=== PATIENT | male | born 1945 | race Caucasian/White ===

== ENCOUNTER 2017-03-27 12:56 | Inpatient (IN) | payer OTHER ==
[~2017-03-27] VITALS: Ht 188 cm; Wt 124.7 kg
[~2017-03-27 12:56] MED LIST: ASPIRIN81 M4 PO; ATORVASTATIN CA10 M1 PO; ATORVASTATIN CA80 M1 PO; FINASTERIDE5 M1 PO; LOSARTAN POTAS100 M1 PO; METFORMIN HCL850 M1 PO; NAPROXEN SODIU550 M1 PO; OSTERA TABLET1 EACH PO; OXYCODONE-ACET1 EACH PO; PIOGLITAZONE HC15 MG PO; TAMSULOSIN HCL0.4 M1 PO; VICTOZA 3-0.6 MG/0.1 SC
[2017-03-27 14:18] LABS: ABSOLUTE BASOPHIL COUNT 0 /CUMM (0.0-0.2); ABSOLUTE EOSINOPHIL COUNT 0.1 /CUMM (0.0-0.7); ABSOLUTE GRANULOCYTE CT 8.9 /CUMM (1.4-6.5); ABSOLUTE LYMPH COUNT 0.6 /CUMM (1.2-3.4); BASOPHIL % 0.4 % (0.0-2.0); EOSINOPHIL % 0.6 % (0-5); HEMATOCRIT 33.5 % (42-52); MEAN CORPUSCULAR HGB 29.8 PG (27.0-31.0); MEAN CORPUSCULAR VOLUME 87.7 FL (80.0-94.0); MEAN PLATELET VOLUME 8.1 FL (7.4-10.4); RBC DISTRIBUTION WIDTH 14.1 % (11.5-14.5); RED BLOOD CELL CT 3.83 /CUMM (4.70-6.10); WHITE BLOOD CELL COUNT 10.6 /CUMM (4.8-10.8)
[2017-03-27 14:38] LABS: GRANULOCYTE % 83.9 % (42.2-75.2); PLATELET COUNT 253 /CUMM (130-400)
--- NOTE | 2017-03-27 17:55 | CT SCAN REPORT ---
EXAMINATION: CT HEAD WITHOUT CONTRAST CLINICAL INFORMATION: Weakness. Headache. COMPARISON: CT head 05/29/2015. TECHNIQUE: Contiguous axial imaging was performed from the skull base to vertex without intravenous administration of contrast. DLP: 627.21 mGy-cm FINDINGS: There is no evidence of acute intracranial hemorrhage or territorial infarction. No abnormal mass effect or midline shift is seen. Griffin to white matter differentiation is well preserved. No extra-axial fluid collections are identified. There is atrophy with prominence of the ventricles and the sulci and hypodensity of the periventricular white matter due to chronic small vessel ischemic disease. There is vascular calcifications of the internal carotid arteries bilaterally. The osseous structures and soft tissues are normal. Lobular mucosal thickening in the ethmoid, maxillary, sphenoid sinus. The right mastoid air cells are opacified. The middle ear cavities are normally aerated. IMPRESSION: No acute intracranial pathology.
--- NOTE | 2017-03-27 18:02 | RADIOLOGY REPORT ---
EXAMINATION: XR CHEST CLINICAL INFORMATION: Weakness. Presyncope. COMPARISON: Chest x-ray 03/22/2011 TECHNIQUE: 2 views of the chest were obtained. FINDINGS: Lungs are clear. No pulmonary vascular congestion. There is no pleural effusion. The heart size is normal. The cardiac and mediastinal contours are normal. There are multilevel degenerative changes of dorsal spine. There is orthopedic plate and screw at lower cervical spine partially imaged. IMPRESSION: No acute abnormality of the chest.
--- NOTE | 2017-03-27 19:34 | ED GENERAL ADULT ---
History of Present Illness General Chief Complaint: Male Genitourinary Problems Stated Complaint: URINE VERY DARK Source: patient, family () Exam Limitations: no limitations Vital Signs & Intake/Output Vital Signs & Intake/Output Vital Signs Date Time Temp Pulse Resp B/P B/P Pulse O2 O2 Flow FiO2 Mean Ox Delivery Rate 03/279 99.3 60 18 122/64 94 Room Air 03/27 2146 100.9 03/275 100.9 95 18 105/55 96 Room Air 03/27 1958 98.3 75 20 148/72 97 Room Air 03/27 1909 96 Room Air 03/27 1350 98.0 98 17 106/63 99 Room Air Allergies Coded Allergies: NO KNOWN ALLERGIES (07/28/10) Reconcile Medications 0.9 % Sodium Chloride (Safe Wash) 0.9 % SOLUTION 0.4 MG PO DAILY PROSTRATE ( Reported) Aspirin (Aspirin*) 81 MG TAB.CHEW 1 TAB PO DAILY ANTI-PLATELET Atorvastatin Calcium 80 MG TABLET 1 TAB PO 1700 HIGH CHOLESTEROL Finasteride 5 MG TABLET 1 TAB PO DAILY PROSTRATE (Reported) Glipizide (Glipizide ER) 2.5 MG TAB.ER.24 2.5 MG PO DAILY DM (Reported) Liraglutide (Victoza 3-Dimitris) 0.6 MG/0.1 ML PEN.INJCTR 1.8 MCG SC DAILY DIABETES (Reported) Losartan Potassium 100 MG TABLET 0.5 TAB PO DAILY KIDNEY (Reported) Metformin HCl 850 MG TABLET 1 TAB PO BID DIABETES (Reported) Naproxen Sodium 550 MG TABLET 1 TAB PO BID PAIN (Reported) PT TAKES 440MG BID Oxycodone HCl/Acetaminophen (Oxycodone-Acetaminophen 5-325) 1 EACH TABLET 1 TAB PO TIDPRN PAIN (Reported) Pioglitazone HCl 15 MG TABLET 1 TAB PO DAILY DIABETES (Reported) Tamsulosin HCl 0.4 MG CAP.ER.24H 1 CAP PO DAILY PROSTRATE (Reported) DAILY AT BEDTIME Tamsulosin HCl (Flomax) 0.4 MG CAP.ER.24H 0.4 MG PO BID PROSTRATE (Reported) Tramadol HCl 50 MG TABLET 25 MG PO BID PAIN. (Reported) Tramadol HCl 50 MG TABLET 50 MG PO DAILY PAIN (Reported) Vit D3 & K/Berberine HCl/Hops (Ostera Tablet) 1 EACH TABLET 1 TAB PO BID BONE HEALTH (Reported) Vit D3 & K/Berberine HCl/Hops (Ostera Tablet) 500 UNIT-500 MCG-90 MG-370 MG TABLET (Unknown Dose) PO BID BONE HEALTH (Reported) Triage Note: PT TO ED WITH ONE WEEK OF BODY ACHES, N/V, NASAL CONGESTION. NOTED URINE DARK, FEELS DEHYDRATED. CALLED PCP AND TOLD TO COME TO ED. Triage Nurses Notes Reviewed? yes Onset: Abrupt Duration: week(s): (1), changing over time, continues in ED Timing: single episode today Injury Environment: home Severity: mild, moderate Severity Numbers: 6 No Modifying Factors: none HPI: 71-year-old male past medical history of hypertension, diabetes, chronic back pain presents for evaluation of nausea, fevers, body aches, vomiting, dark urine and abdominal pain. Patient states that he's been having flulike symptoms for the past week. He is been feeling dehydrated dizzy. He states that last week when he was walking HE felt very dizzy like he may pass out. Her chest pain or shortness of breath. He does report some right upper quadrant abdominal pain that has been intermittent. He states he has been eating and drinking water today but has not been doing so the past several days. He also reports intermittent fevers. No recent surgeries diarrhea hemoptysis lower extremity edema or any other associated symptoms. (Harish Park) Past History Travel History Traveled to [place] past 21 day No Medical History Any Pertinent Medical History? see below for history Neurological: NONE EENT: NONE Cardiovascular: hypertension, hyperlipidemia Respiratory: NONE Gastrointestinal: NONE Hepatic: NONE Renal: benign prost hyperplasia Musculoskeletal: spinal stenosis Psychiatric: NONE Endocrine: diabetes Blood Disorders: NONE, IVC Cancer(s): NONE History of MRSA: No History of VRE: No History of CDIFF: No Pneumonia Vaccine: 07/30/10 Surgical History Surgical History: laminectomy, spinal fusion Psychosocial History Who do you live with Spouse Services at Home None What is your primary language French Tobacco Use: Quit >30 days ago Daily Tobacco Use Amount/Type: =< 4 Cigarettes daily ETOH Use: occasional use Illicit Drug Use: denies illicit drug use Family History Hx Contributory? No (Harish Park) Review of Systems Review of Systems Constitutional: Reports: fever, malaise, weakness. EENTM: Reports: nasal congestion. Respiratory: Reports: no symptoms. Cardiovascular: Reports: no symptoms. GI: Reports: see HPI, abdominal pain, nausea, vomiting. Genitourinary: Reports: no symptoms. Musculoskeletal: Reports: muscle pain, muscle stiffness. Skin: Reports: no symptoms. Neurological/Psychological: Reports: no symptoms. Hematologic/Endocrine: Reports: no symptoms. Immunologic/Allergic: Reports: no symptoms. All Other Systems: Reviewed and Negative (Harish Park) Physical Exam Physical Exam General Appearance: well developed/nourished, no apparent distress, alert, awake Head: atraumatic, normal appearance Eyes: Bilateral: normal appearance, PERRL, EOMI. Ears, Nose, Throat: normal pharynx, normal ENT inspection, hearing grossly normal Neck: normal inspection, supple, full range of motion Respiratory: normal breath sounds, chest non-tender, no respiratory distress, lungs clear Cardiovascular: regular rate/rhythm, normal peripheral pulses Peripheral Pulses: 2+ radial (R), 2+ radial (L) Gastrointestinal: normal bowel sounds, soft, no organomegaly, tenderness (RUQ) Back: normal inspection, normal range of motion, no vertebral tenderness, NO cva TENDERNESS Extremities: normal inspection, normal range of motion, no edema Neurologic/Psych: no motor/sensory deficits, awake, alert, oriented x 3 Skin: intact, normal color, warm/dry Lymphatic: no anterior cervical lopez Core Measures ACS in differential dx? No CVA/TIA Diagnosis: No Sepsis Present: Yes Sepsis Focused Exam Completed? Yes (Harish Park) Progress Differential Diagnoses I considered the following diagnoses in my evaluation of the patient: [Influenza , dehydration, electrolyte abnormality, pancreatitis, cholecystitis, hepatitis, acute coronary syndrome, pneumonia] Plan of Care: Orders Procedure Date/time Status Nothing by Mouth 03/28 B Active LACTIC ACID 03/28 1000 Active HEPATIC FUNCTION PANEL 03/28 0600 Active CBC WITHOUT DIFFERENTIAL 03/28 0600 Active BASIC ELECTROLYTES PLUS BUN&CR 03/28 0600 Active LACTIC ACID 03/28 0400 Active LACTIC ACID 03/28 0140 Active TRC EVALUATION (GEN) 03/27 2254 Active Pathway - chart 03/27 2254 Active LACTIC ACID 03/27 2240 Complete Patient Data 03/27 2151 Active Code Status 03/27 215 Active BLOOD CULTURE 03/27 2141 Active Add-on Test (ER Only) 03/27 2019 Active Add-on Test (ER Only) 03/27 2019 Active EKG 03/27 1853 Active Intake & Output 03/27 1836 Active Add-on Test (ER Only) 03/27 1749 Active MISTAKE 03/27 1716 Active EKG 03/27 1716 Active Add-on Test (ER Only) 03/27 1655 Active LIPASE 03/27 1402 Active LACTIC ACID 03/27 1402 Active HEPATITIS PANEL 03/27 1402 Active CREATINE PHOSPHOKINASE 03/27 1402 Active RAPID VIRAL INFLUENZA A 03/27 1356 Complete CULTURE,URINE 03/27 1304 Active URINALYSIS 03/27 1304 Complete COMPREHENSIVE METABOLIC PANEL 03/27 1304 Active CBC WITHOUT DIFFERENTIAL 03/27 1304 Complete CONTIN. POSITIVE AIRWAY PRESS 03/[address] in observation 03/27 UNK Active VTE Mechanical Prophylaxis 03/27 UNK Active Vital Signs 03/27 UNK Active Intake & Output 03/27 UNK Active Activity/Ambulation 03/27 UNK Active Current Medications Sig/Andrea Start time Last Medication Dose Stop Time Status Admin Heparin Sodium 5,000 UNIT Q8 03/28 0600 UNVr (Porcine) Ampicillin Sodium/ 3,000 MG Q6 03/27 2359 UNVr Sulbactam Sodium (Unasyn) Sodium Chloride 100 ML (Normal Saline 0.9%) Acetaminophen 650 MG Q6PRN PRN 03/27 2300 UNVr (Tylenol) Dextrose/Sodium 1,000 ML .Q8H 03/27 2300 UNVr Chloride (D5-Normal Saline) Morphine Sulfate 2 MG Q2P PRN 03/27 2300 UNVr (Morphine) Ondansetron HCl 4 MG Q6-PRN PRN 03/27 2300 UNVr (Zofran) Laboratory Tests 03/27/17 2300: Lactic Acid 0.8 03/27/17 1628: Urinalysis LIGHT H, Urine Color YEL, Urine Clarity HAZY H, Urine pH 6.0, Ur Specific [place] 1.025, Urine Protein 30 H, Urine Ketones TRACE H, Urine Nitrite NEG, Urine Bilirubin NEG, Urine Urobilinogen 1.0, Ur Leukocyte Esterase NEG, Ur Microscopic SEDIMENT EXAMINED, Urine RBC 3-5, Urine WBC 3-5 H, Ur Epithelial Cells FEW, Hyaline Casts RARE H, Granular Casts MANY H, Urine Hemoglobin SMALL H, Urine Glucose 100 H 03/27/17 1402: Anion Gap 14, Estimated GFR 43 L, BUN/Creatinine Ratio 25.0, Glucose 320 H, Lactic Acid 3.4 H, Calcium 9.4, Total Bilirubin 0.7, AST 199 H, ALT 281 H, Alkaline Phosphatase 219 H, Creatine Kinase 302 H, Total Protein 6.7, Albumin 3.4 L, Globulin 3.3, Albumin/Globulin Ratio 1.0 L, Lipase 208, CBC w Diff NO MAN DIFF REQ, RBC 3.83 L, MCV 87.7, MCH 29.8, MCHC 34.0, RDW 14.1, MPV 8.1, Gran % 83.9 H, Lymphocytes % 6.1 L, Monocytes % 9.0, Eosinophils % 0.6, Basophils % 0.4, Absolute Granulocytes 8.9 H, Absolute Lymphocytes 0.6 L, Absolute Monocytes 1.0 H, Absolute Eosinophils 0.1, Absolute Basophils 0, Hepatitis A IgM Ab Pending, Hep Bs Antigen Pending, Hep B Core IgM Ab Conf Pending, Hepatitis C Antibody Pending Microbiology 03/27 2200 BLOOD: Blood Culture - RECD 03/27 2145 BLOOD: Blood Culture - RECD 03/27 1628 URINE ROUT: Urine Culture - RECD 03/27 1400 NASOPHARYN: Influenza Virus A & B Rapid Smear - COMP Patient seen and evaluated. He reports flulike symptoms over the past week including dizziness decreased oral intake. He has been drinking water today but still feels like his urine is dark. He had a presyncopal episode and his is worried he may have had a seizure or stroke. He has right upper quadrant tenderness as well as elevated LFTs. No white count. An ultrasound of the right upper quadrant was ordered to assess the gallbladder and liver. Shows evidence of possibly gangrenous cholecystitis. Lactic acid was added on at 8 PM and was found to be elevated. 2 L of normal saline was ordered and a repeat was put in for 11 PM. Patient spiked a temp around 9:30. IV Tylenol and Unasyn ordered blood cultures obtained. SPoke with Dr. Argueta from general surgery. Patient will be admitted for further evaluation and treatment. He will require serial labs, IV fluids, IV antibiotics, IV pain meds, surgical consult, laparoscopic cholecystectomy serial abdominal exams. Case discussed with Dr. Fitch he agrees. Diagnostic Imaging: Viewed by Me: Radiology Read, CT Scan, Ultrasound. Discussed w/RAD: Radiology Read, CT Scan, Ultrasound. Radiology Impression: PATIENT: KELLY HYDE PRESENT AGE: 71 PATIENT ACCOUNT NO: [id number] : 47 LOCATION: [facility] ORDERING PHYSICIAN: Harish BORDEN SERVICE DATE: 03/27/17 EXAM TYPE: US - US-LIMITED ABDOMEN EXAMINATION: US ABDOMEN LIMITED CLINICAL INFORMATION: Right upper quadrant pain, nausea and vomiting, and fever in a 71-year-old male patient. COMPARISON: None recent. TECHNIQUE: Real-time imaging of the right upper quadrant abdominal viscera. Exam is limited by the patient's body habitus. FINDINGS: PANCREAS: Partially visualized and normal. LIVER: Normal. The liver demonstrates normal size, contour and echogenicity. No focal lesion or intrahepatic biliary duct dilatation. GALLBLADDER: No significant findings involve the gallbladder which is abnormally dilated and filled with echogenic bile. Numerous small stones are seen near the gallbladder neck. The gallbladder wall is abnormally thickened and edematous. There is suggestion of mucosal sloughing near the proximal body of the gallbladder. Image 39/47. This would be compatible with gangrenous cholecystitis. COMMON BILE DUCT: Normal in caliber measuring 0.4 cm in diameter. RIGHT KIDNEY: Normal. No hydronephrosis. No renal calculi or focal parenchymal lesions. The kidney measures 12.6 cm in maximum dimension. FREE FLUID: None. IMPRESSION: Cholelithiasis, hydrops, stasis, and findings consistent with gangrenous cholecystitis. Incidentally, the silversmith apprentice noted that the patient was not tender over the area of the gallbladder (which is consistent with this impression). DICTATED BY: Yobani Dale MD DATE/TIME DICTATED:03/27/171999 PLANT MAINTENANCE ENGINEER:RORY DATE/TIME TRANSCRIBED:1999 CONFIDENTIAL, DO NOT COPY WITHOUT APPROPRIATE AUTHORIZATION., PATIENT: KELLY HYDE PRESENT AGE: 71 PATIENT ACCOUNT NO: [id number] : 47 LOCATION: [facility] ORDERING PHYSICIAN: Harish BORDEN SERVICE DATE: 03/27/17 EXAM TYPE: CAT - CT HEAD WO IV CONTRAST EXAMINATION: CT HEAD WITHOUT CONTRAST CLINICAL INFORMATION: Weakness. Headache. COMPARISON: CT head 05/29/2015. TECHNIQUE: Contiguous axial imaging was performed from the skull base to vertex without intravenous administration of contrast. DLP: 627.21 mGy-cm FINDINGS: There is no evidence of acute intracranial hemorrhage or territorial infarction. No abnormal mass effect or midline shift is seen. Griffin to white matter differentiation is well preserved. No extra-axial fluid collections are identified. There is atrophy with prominence of the ventricles and the sulci and hypodensity of the periventricular white matter due to chronic small vessel ischemic disease. There is vascular calcifications of the internal carotid arteries bilaterally. The osseous structures and soft tissues are normal. Lobular mucosal thickening in the ethmoid, maxillary, sphenoid sinus. The right mastoid air cells are opacified. The middle ear cavities are normally aerated. IMPRESSION: No acute intracranial pathology. DICTATED BY: Stanley Morales MD DATE/TIME DICTATED:03/27/171748 PLANT MAINTENANCE ENGINEER:RORY DATE/TIME TRANSCRIBED:03/27/171748 CONFIDENTIAL, DO NOT COPY WITHOUT APPROPRIATE AUTHORIZATION. CXR Impression: PATIENT: KELLY HYDE PRESENT AGE : 71 PATIENT ACCOUNT NO: [id number] : 47 LOCATION: [facility] ORDERING PHYSICIAN: Harish BORDEN SERVICE DATE: 03/27/17 EXAM TYPE: RAD - XRY- CHEST XRAY, TWO VIEWS EXAMINATION: XR CHEST CLINICAL INFORMATION: Weakness. Presyncope. COMPARISON: Chest x-ray 03/22/2011 TECHNIQUE: 2 views of the chest were obtained. FINDINGS: Lungs are clear. No pulmonary vascular congestion. There is no pleural effusion. The heart size is normal. The cardiac and mediastinal contours are normal. There are multilevel degenerative changes of dorsal spine. There is orthopedic plate and screw at lower cervical spine partially imaged. IMPRESSION: No acute abnormality of the chest. DICTATED BY: Stanley Morales MD DATE/TIME DICTATED:03/27/171757 PLANT MAINTENANCE ENGINEER:RORY DATE/TIME TRANSCRIBED:03/27/171757 CONFIDENTIAL, DO NOT COPY WITHOUT APPROPRIATE AUTHORIZATION. <Electronically signed in Other Vendor System> Initial ED EKG: normal sinus rhythm, ATRIAL PREMATURE COMPLEX (Harish Park) ED Sepsis Exam Date of Focused Sepsis Exam: 03/27/17 Time of Focused Sepsis Exam: 2100 Sepsis Cardiac Exam: Regular Rate/Rhythm Sepsis Resp Exam: CTA Sepsis Cap Refill Exam: <2 Sec Sepsis Peripheral Pulse Exam: Normal Sepsis Peripheral Pulse Location: Radial Sepsis Skin Color Exam: Pale Skin Temp/Moisture Exam: Warm/Dry (Harish Park) Departure Departure Disposition: STILL A PATIENT Condition: Stable Clinical Impression Primary Impression: Cholecystitis Referrals: Sveta ABREU,Orlando Espinoza (PCP/Family) Departure Forms: Customer Survey General Discharge Information Observation Note Spoke With: Kendall ABREU,Kevin Nevarez Patient In: Non-ED OBS Care Area Rationale for Observation: My rational for observation is as follows [IV fluids, IV antibiotics, serial labs, surgical consult, monitoring of vital signs, serial abdominal exams]. (Harish Park) PA/DIRECTOR MANUFACTURING ENGINEERING Co-Sign Statement Statement: ED Attending supervision documentation- [x] I saw and evaluated the patient. I have also reviewed all the pertinent lab results and diagnostic results. I agree with the findings and the plan of care as documented in the PA's/DIRECTOR MANUFACTURING ENGINEERING's documentation. 03/27/17, 21:15... pt with ruq tenderness, infected gall bladder on ct scan... merits iv abx, admission for likley cholecystectomy. [] I have reviewed the ED Record and agree with the PA's/DIRECTOR MANUFACTURING ENGINEERING's documentation. [] Additions or exceptions (if any) to the PAs/DIRECTOR MANUFACTURING ENGINEERING's note and plan are summarized below: [] (Little ABREU,[place]) Critical Care Note Critical Care Note Critical Care Time: non-applicable (Harish Park) Critical Care Time: non-applicable (Harish Park)
--- NOTE | 2017-03-27 20:13 | ULTRASOUND REPORT ---
EXAMINATION: US ABDOMEN LIMITED CLINICAL INFORMATION: Right upper quadrant pain, nausea and vomiting, and fever in a 71-year-old male patient. COMPARISON: None recent. TECHNIQUE: Real-time imaging of the right upper quadrant abdominal viscera. Exam is limited by the patient's body habitus. FINDINGS: PANCREAS: Partially visualized and normal. LIVER: Normal. The liver demonstrates normal size, contour and echogenicity. No focal lesion or intrahepatic biliary duct dilatation. GALLBLADDER: No significant findings involve the gallbladder which is abnormally dilated and filled with echogenic bile. Numerous small stones are seen near the gallbladder neck. The gallbladder wall is abnormally thickened and edematous. There is suggestion of mucosal sloughing near the proximal body of the gallbladder. Image 39/47. This would be compatible with gangrenous cholecystitis. COMMON BILE DUCT: Normal in caliber measuring 0.4 cm in diameter. RIGHT KIDNEY: Normal. No hydronephrosis. No renal calculi or focal parenchymal lesions. The kidney measures 12.6 cm in maximum dimension. FREE FLUID: None. IMPRESSION: Cholelithiasis, hydrops, stasis, and findings consistent with gangrenous cholecystitis. Incidentally, the fountain attendant noted that the patient was not tender over the area of the gallbladder (which is consistent with this impression).
[2017-03-27] MEDS ORDERED: OSTERA TABLET1 EACH PO (21:00)
[2017-03-27] MEDS ORDERED: FLOMAX0.4 M1 PO (21:00)
[2017-03-27] MEDS ORDERED: TRAMADOL HCL50 M1 PO ×2 (21:00→21:53)
[2017-03-27] MEDS ORDERED: GLIPIZIDE ER2.5 M1 PO (21:51)
[2017-03-27] MEDS ORDERED: SAFE WASH210 ML PO (21:52)
--- NOTE | 2017-03-27 22:45 | Cons- Medical ---
Enrique Mckeon 03/27/17 2245: General Information and HPI Consulting Request Date of Consult: 03/27/17 Requested By: Kendall ABREU,Kevin Gates Reason for Consult: pre-op medical assessment and clearance Source of Information: patient, old records Exam Limitations: no limitations History of Present Illness: Patient is a 71 year old male with medical history of , TIA 2016, DM type 2, cervical myelopathy, hypertension, hyperlipidemia, obstructive sleep apnea on CPAP, chronic kidney disease stage II, spinal stenosis status post multiple back surgeries, DVT with IVC filter 2011, former smoker quit 7 years ago. Patient presented to the emergency department after being advised by his primary care doctor to come for further evaluation due to a chief complaint of dark urine. Patient stated that around 1 week ago sudden right upper quadrant abdominal pain started that was intense, radiating to his back, around 8 out of 10 associated with nausea and vomiting happened x 4 and after that 2-3 days his abdominal pain started to subside and his appetite and oral intake improved on last Monday. But the dark urine still persist and it due to that he contact his primary care doctor who advised him to come to the emergency department for further evaluation. In the ED patient spike a fever 100.9, abdominal ultrasound showed gangrenous cholecystitis, patient admitted under surgical service to be taken to the OR tomorrow. Patient started on IV Unasyn, blood and urine culture obtained. Patient currently denies any fever, chills, sweating, nausea, vomiting, diarrhea , hematuria, dysuria, headaches, change in vision or hearing, constipation, chest pain, heart racing, orthopnea, lower extremity swelling, shortness of breath, cough, wheezing. The patient use walker to walk due to his back issues. Patient stated that he had nuclear stress test that was done 3-4 years ago with his cupola worker Geovanny Levy MD and according to him it was within normal. Last time patient was in the hospital was 2016 that was due to TIA, latest echocardiogram done in 2016 with EF > 55%. Patient former smoker smoked for 40 years 2 pack per day quit 7 years ago patient states he is compliant with his CPAP machine at home. Allergies/Medications Allergies: Coded Allergies: NO KNOWN ALLERGIES (07/28/10) Home Med List: 0.9 % Sodium Chloride (Safe Wash) 0.9 % SOLUTION 0.4 MG PO DAILY PROSTRATE ( Reported) Aspirin (Aspirin*) 81 MG TAB.CHEW 1 TAB PO DAILY ANTI-PLATELET Atorvastatin Calcium 80 MG TABLET 1 TAB PO 1700 HIGH CHOLESTEROL Finasteride 5 MG TABLET 1 TAB PO DAILY PROSTRATE (Reported) Glipizide (Glipizide ER) 2.5 MG TAB.ER.24 2.5 MG PO DAILY DM (Reported) Liraglutide (Victoza 3-Dimitris) 0.6 MG/0.1 ML PEN.INJCTR 1.8 MCG SC DAILY DIABETES (Reported) Losartan Potassium 100 MG TABLET 0.5 TAB PO DAILY KIDNEY (Reported) Metformin HCl 850 MG TABLET 1 TAB PO BID DIABETES (Reported) Naproxen Sodium 550 MG TABLET 1 TAB PO BID PAIN (Reported) PT TAKES 440MG BID Oxycodone HCl/Acetaminophen (Oxycodone-Acetaminophen 5-325) 1 EACH TABLET 1 TAB PO TIDPRN PAIN (Reported) Pioglitazone HCl 15 MG TABLET 1 TAB PO DAILY DIABETES (Reported) Tamsulosin HCl 0.4 MG CAP.ER.24H 1 CAP PO DAILY PROSTRATE (Reported) DAILY AT BEDTIME Tamsulosin HCl (Flomax) 0.4 MG CAP.ER.24H 0.4 MG PO BID PROSTRATE (Reported) Tramadol HCl 50 MG TABLET 25 MG PO BID PAIN. (Reported) Tramadol HCl 50 MG TABLET 50 MG PO DAILY PAIN (Reported) Vit D3 & K/Berberine HCl/Hops (Ostera Tablet) 1 EACH TABLET 1 TAB PO BID BONE HEALTH (Reported) Vit D3 & K/Berberine HCl/Hops (Ostera Tablet) 500 UNIT-500 MCG-90 MG-370 MG TABLET (Unknown Dose) PO BID BONE HEALTH (Reported) Current Medications: Current Medications Sig/Andrea Start time Last Medication Dose Route Stop Time Status Admin Acetaminophen 650 MG Q6PRN PRN 03/27 2300 AC PO Acetaminophen 0 .STK-MED ONE 03/27 2146 DC IV Acetaminophen 1,000 MG ONCE ONE 03/27 2144 DC 03/27 N/A 1 UNIT IV 03/27 Ampicillin Sodium/ 3,000 MG Q6 03/279 AC Sulbactam Sodium IV Sodium Chloride 100 ML Ampicillin Sodium/ 0 .STK-MED ONE 03/27 2201 DC Sulbactam Sodium .ROUTE Ampicillin Sodium/ 3,000 MG ONCE ONE 03/27 2144 DC 03/27 Sulbactam Sodium IV 03/27 221 2211 Sodium Chloride 100 ML Dextrose/Sodium 1,000 ML .Q8H 03/27 2300 AC 03/28 Chloride IV 0013 Finasteride 5 MG DAILY 03/28 1000 AC PO Heparin Sodium 5,000 UNIT Q8 03/28 0600 AC (Porcine) SC Insulin Human Regular 0 Q6 03/28 0016 AC 03/28 SC 0057 Morphine Sulfate 2 MG Q2P PRN 03/27 2300 AC IV Ondansetron HCl 4 MG Q6-PRN PRN 03/27 2300 AC IV Sodium Chloride 1,000 ML BOLUS ONE 03/27 2114 DC 03/27 IV 03/27 2213 221 Sodium Chloride 1,000 ML BOLUS ONE 03/27 2029 DC 03/27 IV 03/27 Tamsulosin HCl 0.4 MG BID 03/28 1000 AC PO Review of Systems Review of Systems Constitutional: Denies: see HPI. Cardiovascular: Denies: see HPI. Respiratory: Denies: see HPI. GI: Reports: see HPI. Genitourinary: Reports: see HPI. Musculoskeletal: Reports: see HPI. Past History Travel History Traveled to [place] past 21 day No Medical History Neurological: NONE EENT: NONE Cardiovascular: hypertension, hyperlipidemia Respiratory: NONE Gastrointestinal: NONE Hepatic: NONE Renal: benign prost hyperplasia Musculoskeletal: spinal stenosis Psychiatric: NONE Endocrine: diabetes Blood Disorders: NONE, IVC Cancer(s): NONE Surgical History Surgical History: laminectomy, spinal fusion Psychosocial History Services at Home: None Smoking Status: Former Smoker ETOH Use: occasional use Illicit Drug Use: denies illicit drug use Functional Ability ADLs Independent: dressing, eating, toileting, bathing. Ambulation: walker Exam & Diagnostic Data Last 24 Hrs of Vital Signs/I&O Vital Signs Date Time Temp Pulse Resp B/P B/P Pulse O2 O2 Flow FiO2 Mean Ox Delivery Rate 03/28 0101 69 96 03/28 001 98.3 91 24 128/76 96 Room Air 03/27 2308 99.3 60 18 122/64 94 Room Air 03/27 2146 100.9 03/27 2134 100.9 95 18 105/55 96 Room Air 03/27 1958 98.3 75 20 148/72 97 Room Air 03/27 1909 96 Room Air 03/27 1350 98.0 98 17 106/63 99 Room Air Intake & Output 03/28 0800 03/28 0000 03/27 1600 Intake Total Output Total 125 100 Balance -125 -100 Output, Urine 125 100 Patient 275 lb 275 lb Weight Weight Reported by Patient Reported by Patient Measurement Method Physical Exam General Appearance: alert, comfortable, obese Head: atraumatic Eyes: Bilateral: PERRL, EOMI. Neck: normal inspection Respiratory: normal breath sounds, chest non-tender, lungs clear Cardiovascular: regular rate/rhythm, normal peripheral pulses Gastrointestinal: normal bowel sounds, soft, right upper quadrant tenderness with deep palpation. negative Penny sign, obese Extremities: normal inspection, no edema Neurologic/Psych: awake, alert, oriented x 3, package lift operator II-XII nml as tested, 3-4 out of 5 lower extremity strength Last 24 Hrs of Labs/Jesus: Laboratory Tests 03/27/17 2300: Lactic Acid 0.8 03/27/17 1628: Urinalysis LIGHT H, Urine Color YEL, Urine Clarity HAZY H, Urine pH 6.0, Ur Specific [place] 1.025, Urine Protein 30 H, Urine Ketones TRACE H, Urine Nitrite NEG, Urine Bilirubin NEG, Urine Urobilinogen 1.0, Ur Leukocyte Esterase NEG, Ur Microscopic SEDIMENT EXAMINED, Urine RBC 3-5, Urine WBC 3-5 H, Ur Epithelial Cells FEW, Hyaline Casts RARE H, Granular Casts MANY H, Urine Hemoglobin SMALL H, Urine Glucose 100 H 03/27/17 1402: Anion Gap 14, Estimated GFR 43 L, BUN/Creatinine Ratio 25.0, Glucose 320 H, Lactic Acid 3.4 H, Calcium 9.4, Total Bilirubin 0.7, AST 199 H, ALT 281 H, Alkaline Phosphatase 219 H, Creatine Kinase 302 H, Troponin I Pending, Total Protein 6.7, Albumin 3.4 L, Globulin 3.3, Albumin/Globulin Ratio 1.0 L, Lipase 208, CBC w Diff NO MAN DIFF REQ, RBC 3.83 L, MCV 87.7, MCH 29.8, MCHC 34.0, RDW 14.1, MPV 8.1, Gran % 83.9 H, Lymphocytes % 6.1 L, Monocytes % 9.0, Eosinophils % 0.6, Basophils % 0.4, Absolute Granulocytes 8.9 H, Absolute Lymphocytes 0.6 L, Absolute Monocytes 1.0 H, Absolute Eosinophils 0.1, Absolute Basophils 0, Hepatitis A IgM Ab Pending, Hep Bs Antigen Pending, Hep B Core IgM Ab Conf Pending, Hepatitis C Antibody Pending Microbiology 03/27 1400 NASOPHARYN: Influenza Virus A & B Rapid Smear - COMP Diagnostic Data CXR Results EXAMINATION: XR CHEST CLINICAL INFORMATION: Weakness. Presyncope. COMPARISON: Chest x-ray 03/22/2011 TECHNIQUE: 2 views of the chest were obtained. FINDINGS: Lungs are clear. No pulmonary vascular congestion. There is no pleural effusion. The heart size is normal. The cardiac and mediastinal contours are normal. There are multilevel degenerative changes of dorsal spine. There is orthopedic plate and screw at lower cervical spine partially imaged. IMPRESSION: No acute abnormality of the chest. Other Results EXAMINATION: US ABDOMEN LIMITED CLINICAL INFORMATION: Right upper quadrant pain, nausea and vomiting, and fever in a 71-year-old male patient. COMPARISON: None recent. TECHNIQUE: Real-time imaging of the right upper quadrant abdominal viscera. Exam is limited by the patient's body habitus. FINDINGS: PANCREAS: Partially visualized and normal. LIVER: Normal. The liver demonstrates normal size, contour and echogenicity. No focal lesion or intrahepatic biliary duct dilatation. GALLBLADDER: No significant findings involve the gallbladder which is abnormally dilated and filled with echogenic bile. Numerous small stones are seen near the gallbladder neck. The gallbladder wall is abnormally thickened and edematous. There is suggestion of mucosal sloughing near the proximal body of the gallbladder. Image 39/47. This would be compatible with gangrenous cholecystitis. COMMON BILE DUCT: Normal in caliber measuring 0.4 cm in diameter. RIGHT KIDNEY: Normal. No hydronephrosis. No renal calculi or focal parenchymal lesions. The kidney measures 12.6 cm in maximum dimension. FREE FLUID: None. IMPRESSION: Cholelithiasis, hydrops, stasis, and findings consistent with gangrenous cholecystitis. Incidentally, the brineyard supervisor noted that the patient was not tender over the area of the gallbladder (which is consistent with this impression). EXAMINATION: CT HEAD WITHOUT CONTRAST CLINICAL INFORMATION: Weakness. Headache. COMPARISON: CT head 05/29/2015. TECHNIQUE: Contiguous axial imaging was performed from the skull base to vertex without intravenous administration of contrast. DLP: 627.21 mGy-cm FINDINGS: There is no evidence of acute intracranial hemorrhage or territorial infarction. No abnormal mass effect or midline shift is seen. Griffin to white matter differentiation is well preserved. No extra-axial fluid collections are identified. There is atrophy with prominence of the ventricles and the sulci and hypodensity of the periventricular white matter due to chronic small vessel ischemic disease. There is vascular calcifications of the internal carotid arteries bilaterally. The osseous structures and soft tissues are normal. Lobular mucosal thickening in the ethmoid, maxillary, sphenoid sinus. The right mastoid air cells are opacified. The middle ear cavities are normally aerated. IMPRESSION: No acute intracranial pathology. Assessment/Plan Assessment/Plan Patient is a 71 year old male with medical history of , TIA 2016, DM type 2, cervical myelopathy, hypertension, hyperlipidemia, chronic kidney disease stage II, obstructive sleep apnea on CPAP, spinal stenosis status post multiple back surgeries, DVT with IVC filter 2011, former smoker quit 7 years ago. Patient presented to the emergency department after being advised by his primary care doctor to come for further evaluation due to a chief complaint of dark urine. Problem list: -Gangrenous cholecystitis -Transaminitis with elevated creatine kinase -Lactic acidosis -Hyperglycemia -Pseudohyponatremia-corrected sodium 140 -Anemia most likely anemia of chronic disease -RCRI= 2 class III Recommendation: -1 additional set of troponin and EKG in a.m. -Patient medically optimized for surgery but Patient will need cardiology clearance(patient follow with Geovanny Levy MD) -Hold off oral antidiabetic medication, continue current insulin sliding scale -Endocrinology consultation in a.m. -Hold off losartan, aspirin, atorvastatin and tramadol can be restarted after operation. -Continue current antibiotic, follow blood and urine culture -Follow hepatitis panel -CPAP at nighttime -DVT prophylaxis all time -We will continue following the patient. Consult Acknowledgment - Thank you for your consult request. Floyd ABREU, [facility] 03/28/17 0017: Assessment/Plan Consult Acknowledgment - Thank you for your consult request. Attending MD Review Statement Attending Statement Attending MD Statement: examined this patient, discuss w/resident/PA/ANALYSIS MANAGER, agreed w/resident/PA/ANALYSIS MANAGER, reviewed images, amended to note Attending Assessment/Plan: 71 yo morbidly obese M with h/o VINEET on CPAP, TIA, T2DM, CKD, cervical myelopathy s/p laminectomy, previous lumbar surgery with prophylactic IVC filter placement due to high risk for DVT/PE, is admitted to Surgical service for acute gangrenous cholecystitis with a plan for OR in AM. Patient reports symptoms of right upper quadrant pain, nausea, vomiting in the past 1 week but he came in to be evaluated for 'dark urine'. Patient denies chest pain, dyspnea, palpitations or lightheadedness. He follows Dr. Martino for cardiology and reports undergoing nuclear stress test few years ago that was essentially normal. Patient denies any h/o CAD or IHD, CHF and is not insulin dependent. Vitals: Tmax 100.9, HR 60-90's, BP 122/64, sats 96% RA. Exam as above. Labs: no leukocytosis, Na 136, BUN 40, creat 1.6 (Baseline 1.0-1.4), glucose 320, lactic acid 3.4 --> 0.8, T. Bili 0.7, AST 199, ALT 281, Alk phos 219, CK 302, trop 0.06 , lipase 208, albumin 3.4. UA hazy, proteinuria, trace ketones. CXR and CT head: no acute changes. Abd ultrasound: cholelithiasis, hydrops, stasis with gangrenous cholecystitis. Echo (2016): EF > 55%. EKG: sinus rhythm, PAC's. Assessment and plan: 1. Acute gangrenous cholecystitis 2. Lactic acidosis 3. Transaminitis 4. Type 2 diabetes (A1c 6.6 in Jan 2016) not on insulin 5. VINEET on CPAP 6. CKD with baseline creatinine < 2.0 - Based on RCRI, patient has 2 risk factors history of TIA and is undergoing an intraperitoneal surgery, with moderate risk of perioperative cardiac event. Will obtain Cardiology clearance. - NPO, IV hydration, IV antibiotics and pain management per Surgery. - Insulin NPO SS, check HbA1c, hold oral hypoglycemics - Endo consult Dr. Bangura in AM - Check EKG and troponin in AM - Hold losartan, aspirin and atorvastatin - Continue nocturnal CPAP DVT ppx Hep SC. Full code.
--- NOTE | 2017-03-27 23:05 | Admission Core Measures ---
Acute Coronary Syndrome (CM) ACS Core Measures Acute Coronary Syndrome Diagnosis No Congestive Heart Failure (NEW) CHF Core Measures Congestive Heart Failure Diagnosis No Cerebrovascular Accident (NEW) CVA Core Measures CVA/TIA Diagnosis No Venous Thromboembolism VTE Core Wanda (View Protocol) VTE Risk Factors Acute Medical Illness No Mechanical VTE Prophylaxis d/t N/A MechProphylax Ordered No VTE Pharm Prophylaxis d/t NA PharmProphylax ordered Problem List As ranked by this Provider includes Assessment & Plan 1. Cholecystitis HOME MEDS Home Med List 0.9 % Sodium Chloride (Safe Wash) 0.9 % SOLUTION 0.4 MG PO DAILY PROSTRATE ( Reported) Aspirin (Aspirin*) 81 MG TAB.CHEW 1 TAB PO DAILY ANTI-PLATELET Atorvastatin Calcium 80 MG TABLET 1 TAB PO 1700 HIGH CHOLESTEROL Finasteride 5 MG TABLET 1 TAB PO DAILY PROSTRATE (Reported) Glipizide (Glipizide ER) 2.5 MG TAB.ER.24 2.5 MG PO DAILY DM (Reported) Liraglutide (Victoza 3-Dimitris) 0.6 MG/0.1 ML PEN.INJCTR 1.8 MCG SC DAILY DIABETES (Reported) Losartan Potassium 100 MG TABLET 0.5 TAB PO DAILY KIDNEY (Reported) Metformin HCl 850 MG TABLET 1 TAB PO BID DIABETES (Reported) Naproxen Sodium 550 MG TABLET 1 TAB PO BID PAIN (Reported) Oxycodone HCl/Acetaminophen (Oxycodone-Acetaminophen 5-325) 1 EACH TABLET 1 TAB PO TIDPRN PAIN (Reported) Pioglitazone HCl 15 MG TABLET 1 TAB PO DAILY DIABETES (Reported) Tamsulosin HCl 0.4 MG CAP.ER.24H 1 CAP PO DAILY PROSTRATE (Reported) Tamsulosin HCl (Flomax) 0.4 MG CAP.ER.24H 0.4 MG PO BID PROSTRATE (Reported) Tramadol HCl 50 MG TABLET 25 MG PO BID PAIN. (Reported) Tramadol HCl 50 MG TABLET 50 MG PO DAILY PAIN (Reported) Vit D3 & K/Berberine HCl/Hops (Ostera Tablet) 1 EACH TABLET 1 TAB PO BID BONE HEALTH (Reported) Vit D3 & K/Berberine HCl/Hops (Ostera Tablet) 500 UNIT-500 MCG-90 MG-370 MG TABLET (Unknown Dose) PO BID BONE HEALTH (Reported)
--- NOTE | 2017-03-27 23:06 | History & Physical Pre-Op ---
Ava Noriega 03/27/17 3865: General Information and HPI History of Present Illness: 71yoM presented to ED this afternoon with CC of "darkened urine". He has not been feeling well over the last week, and believed he had the flu. He did contact Dr. Bangura, his waste disposal attendant, who instructed him to come to the emergency department today for further evaluation. 7 days ago, he began to have nausea vomiting and diarrhea accompanied with right upper quadrant pain and right flank pain. The pain has subsided and he is now pain-free. The pain lasted 2-3 days. Over the week, he continued to be nauseous and have diarrhea, as well as have subjective fever and chills at home. Denies sick contacts. Denies chest pain or shortness of breath. Denies history of abdominal surgeries or gastrointestinal diagnoses. He does have multiple medical problems, and is followed by Dr. Bangura who he calls his primary care doctor. He has diabetes2, obstructive sleep apnea with CPAP at night, BPH, hyperlipidemia, and chronic back pain status post 3 cervical procedures and 1 lumbar procedure. He had a DVT and PE postoperatively following spine surgery in 2011, and does have a IVC filter in place. He is status post TIA in 2016 Allergies/Medications Allergies: Coded Allergies: NO KNOWN ALLERGIES (07/28/10) Home Med list 0.9 % Sodium Chloride (Safe Wash) 0.9 % SOLUTION 0.4 MG PO DAILY PROSTRATE ( Reported) Aspirin (Aspirin*) 81 MG TAB.CHEW 1 TAB PO DAILY ANTI-PLATELET Atorvastatin Calcium 80 MG TABLET 1 TAB PO 1700 HIGH CHOLESTEROL Finasteride 5 MG TABLET 1 TAB PO DAILY PROSTRATE (Reported) Glipizide (Glipizide ER) 2.5 MG TAB.ER.24 2.5 MG PO DAILY DM (Reported) Liraglutide (Victoza 3-Dimitris) 0.6 MG/0.1 ML PEN.INJCTR 1.8 MCG SC DAILY DIABETES (Reported) Losartan Potassium 100 MG TABLET 0.5 TAB PO DAILY KIDNEY (Reported) Metformin HCl 850 MG TABLET 1 TAB PO BID DIABETES (Reported) Naproxen Sodium 550 MG TABLET 1 TAB PO BID PAIN (Reported) PT TAKES 440MG BID Oxycodone HCl/Acetaminophen (Oxycodone-Acetaminophen 5-325) 1 EACH TABLET 1 TAB PO TIDPRN PAIN (Reported) Pioglitazone HCl 15 MG TABLET 1 TAB PO DAILY DIABETES (Reported) Tamsulosin HCl 0.4 MG CAP.ER.24H 1 CAP PO DAILY PROSTRATE (Reported) DAILY AT BEDTIME Tamsulosin HCl (Flomax) 0.4 MG CAP.ER.24H 0.4 MG PO BID PROSTRATE (Reported) Tramadol HCl 50 MG TABLET 25 MG PO BID PAIN. (Reported) Tramadol HCl 50 MG TABLET 50 MG PO DAILY PAIN (Reported) Vit D3 & K/Berberine HCl/Hops (Ostera Tablet) 1 EACH TABLET 1 TAB PO BID BONE HEALTH (Reported) Vit D3 & K/Berberine HCl/Hops (Ostera Tablet) 500 UNIT-500 MCG-90 MG-370 MG TABLET (Unknown Dose) PO BID BONE HEALTH (Reported) Past History Medical History Neurological: TIA (2016) Cardiovascular: hypertension, hyperlipidemia Respiratory: obstructive sleep apnea (nocturnal cpap) Renal: benign prost hyperplasia Musculoskeletal: spinal stenosis, sp ACDFx2, PCD, lum lami Endocrine: diabetes Blood Disorders: DVT, PE, IVC placed 2011 for postop dvt/pe Cancer(s): NONE History of MRSA: No History of VRE: No History of CDIFF: No Pneumonia Vaccine: 07/30/10 Surgical History Pertinent Surgical History: IVC filter 2012 post cerv decomp 2012 lumbar lami 2011 ACDF 2011 Past Family/Social History Psychosocial History Where Do You Live? Home Who Do You Live With? spouse Services at Home None Smoking Status: Former Smoker (quit 7yr ago, 40pyhx) ETOH Use: occasional use Illicit Drug Use: denies illicit drug use Functional Ability Ambulation: walker Exam & Diagnostic Data Last 24 Hrs of Vital Signs/I&O Vital Signs Date Time Temp Pulse Resp B/P B/P Pulse O2 O2 Flow FiO2 Mean Ox Delivery Rate 03/27 2308 99.3 60 18 122/64 94 Room Air 03/27 2146 100.9 03/27 2134 100.9 95 18 105/55 96 Room Air 03/27 1958 98.3 75 20 148/72 97 Room Air 03/27 1909 96 Room Air 03/27 1350 98.0 98 17 106/63 99 Room Air Intake & Output 03/28 0800 03/28 0000 03/27 1600 Intake Total Output Total 100 Balance -100 Output, Urine 100 Patient 275 lb Weight Weight Reported by Patient Measurement Method Physical Exam: GEN: A&Ox3, NAD, appropriate, tremulous CARD: S1S2 RRR PULM: Clear, decreased throughout ABD: obese, tympanic, nontender, palpable mass ruq, vericosities throughout, +bs EXT: calves soft nt Last 24 Hrs of Labs/Jesus: Laboratory Tests 03/27/17 2300: Lactic Acid 0.8 03/27/17 1628: Urinalysis LIGHT H, Urine Color YEL, Urine Clarity HAZY H, Urine pH 6.0, Ur Specific [place] 1.025, Urine Protein 30 H, Urine Ketones TRACE H, Urine Nitrite NEG, Urine Bilirubin NEG, Urine Urobilinogen 1.0, Ur Leukocyte Esterase NEG, Ur Microscopic SEDIMENT EXAMINED, Urine RBC 3-5, Urine WBC 3-5 H, Ur Epithelial Cells FEW, Hyaline Casts RARE H, Granular Casts MANY H, Urine Hemoglobin SMALL H, Urine Glucose 100 H 03/27/17 1402: Anion Gap 14, Estimated GFR 43 L, BUN/Creatinine Ratio 25.0, Glucose 320 H, Lactic Acid 3.4 H, Calcium 9.4, Total Bilirubin 0.7, AST 199 H, ALT 281 H, Alkaline Phosphatase 219 H, Creatine Kinase 302 H, Total Protein 6.7, Albumin 3.4 L, Globulin 3.3, Albumin/Globulin Ratio 1.0 L, Lipase 208, CBC w Diff NO MAN DIFF REQ, RBC 3.83 L, MCV 87.7, MCH 29.8, MCHC 34.0, RDW 14.1, MPV 8.1, Gran % 83.9 H, Lymphocytes % 6.1 L, Monocytes % 9.0, Eosinophils % 0.6, Basophils % 0.4, Absolute Granulocytes 8.9 H, Absolute Lymphocytes 0.6 L, Absolute Monocytes 1.0 H, Absolute Eosinophils 0.1, Absolute Basophils 0, Hepatitis A IgM Ab Pending, Hep Bs Antigen Pending, Hep B Core IgM Ab Conf Pending, Hepatitis C Antibody Pending Microbiology 03/27 220 BLOOD: Blood Culture - RECD 03/27 2144 BLOOD: Blood Culture - RECD 03/27 162 URINE ROUT: Urine Culture - RECD 03/27 1400 NASOPHARYN: Influenza Virus A & B Rapid Smear - COMP Diagnostic Data Other Results SERVICE DATE: 03/27/17-1819 EXAM TYPE: US - US-LIMITED ABDOMEN EXAMINATION: US ABDOMEN LIMITED CLINICAL INFORMATION: Right upper quadrant pain, nausea and vomiting, and fever in a 71-year-old male patient. COMPARISON: None recent. TECHNIQUE: Real-time imaging of the right upper quadrant abdominal viscera. Exam is limited by the patient's body habitus. FINDINGS: PANCREAS: Partially visualized and normal. LIVER: Normal. The liver demonstrates normal size, contour and echogenicity. No focal lesion or intrahepatic biliary duct dilatation. GALLBLADDER: No significant findings involve the gallbladder which is abnormally dilated and filled with echogenic bile. Numerous small stones are seen near the gallbladder neck. The gallbladder wall is abnormally thickened and edematous. There is suggestion of mucosal sloughing near the proximal body of the gallbladder. Image 39/47. This would be compatible with gangrenous cholecystitis. COMMON BILE DUCT: Normal in caliber measuring 0.4 cm in diameter. RIGHT KIDNEY: Normal. No hydronephrosis. No renal calculi or focal parenchymal lesions. The kidney measures 12.6 cm in maximum dimension. FREE FLUID: None. IMPRESSION: Cholelithiasis, hydrops, stasis, and findings consistent with gangrenous cholecystitis. Incidentally, the wire stitcher operator noted that the patient was not tender over the area of the gallbladder (which is consistent with this impression). Assessment/Plan Assessment/Plan: A: 71yoM with Cholecystitis, with STEPHANIE and lactic acidosis, likely due to dehydration in setting of n/v/d x1 week, possible early sepsis P: - bld cx sent. - unasyn - ivf resuscitation - trend lactate levels q6: initial LA level ordered by ED PA at 8pm, order added onto blood drawn at 2pm therefore result in E[facility] Carson is from 2pm. - DVT ppx - npo - home meds - FS, RISS - prn pain meds, antiemetics - OOB, ambulate -TRC, noctural CPAP - trend labs - serial abd exams - Medical team consulted for comanagement - will contact Dr. Bangura in am for endocrine mgmt - will need surgical intervention- will bring into hospital as observation status for hydration, serial exams, iv abx, glucose control. Likely OR in am. - full code - will dw attending As Ranked By This Provider Problem List: 1. Cholecystitis 2. Diabetes mellitus type 2 Kevin Argueta MD 03/28/17 1052: Attending MD Review Statement Attending Statement Attending MD Statement: examined this patient, discuss w/resident/PA/CONTENT MANAGER, reviewed images
[2017-03-28 00:16] VITALS: BP 128/76
[2017-03-28 06:00] VITALS: BP 130/80
[2017-03-28 07:57] LABS: ABSOLUTE BASOPHIL COUNT 0 /CUMM (0.0-0.2); ABSOLUTE EOSINOPHIL COUNT 0.1 /CUMM (0.0-0.7); ABSOLUTE GRANULOCYTE CT 7.7 /CUMM (1.4-6.5); ABSOLUTE LYMPH COUNT 0.8 /CUMM (1.2-3.4); ABSOLUTE MONOCYTE COUNT 1.1 /CUMM (0.10-0.60); BASOPHIL % 0.2 % (0.0-2.0); EOSINOPHIL % 1.1 % (0-5); HEMATOCRIT 32.1 % (42-52); MEAN CORPUSCULAR HGB 29.5 PG (27.0-31.0); MEAN CORPUSCULAR HGB CONC 33.3 G/DL (33.0-37.0); MEAN CORPUSCULAR VOLUME 88.8 FL (80.0-94.0); MEAN PLATELET VOLUME 8.8 FL (7.4-10.4); PLATELET COUNT 239 /CUMM (130-400); RBC DISTRIBUTION WIDTH 14.1 % (11.5-14.5); RED BLOOD CELL CT 3.62 /CUMM (4.70-6.10); WHITE BLOOD CELL COUNT 9.8 /CUMM (4.8-10.8)
--- NOTE | 2017-03-28 08:24 | PN- Medicine Consult ---
Vikram Awad 03/28/17 0823: Assessment/PlanMedical Consult Assessment/Plan Assessment: 71 yo morbidly obese M with h/o VINEET on CPAP, TIA, T2DM, CKD, cervical myelopathy s/p laminectomy, previous lumbar surgery with prophylactic IVC filter placement due to high risk for DVT/PE, is admitted to Surgical service for acute gangrenous cholecystitis with a plan for OR on 03/28/2017.Patient presented to the emergency department after being advised by his primary care doctor to come for further evaluation due to a chief complaint of dark urine. He follows Dr. Martino for cardiology and reports undergoing nuclear stress test few years ago that was essentially normal. Patient denies any h/o CAD or IHD, CHF and is not insulin dependent. Vitals: Tmax 100.9, HR 60-90's, BP 122/64, sats 96% RA. Labs: no leukocytosis, Na 136, BUN 40, creat 1.6 (Baseline 1.0-1.4), glucose 320 , lactic acid 3.4 --> 0.8, T. Bili 0.7, AST 199, ALT 281, Alk phos 219, CK 302, trop 0.06, lipase 208, albumin 3.4. UA hazy, proteinuria, trace ketones. CXR and CT head: no acute changes. Abd ultrasound: cholelithiasis, hydrops, stasis with gangrenous cholecystitis. Echo (2016): EF > 55%. EKG: sinus rhythm, PAC's. Problem list: -Acute Gangrenous cholecystitis -Transaminitis with elevated creatine kinase -Lactic acidosis -Type 2 diabetes (A1c 6.6 in Jan 2016) not on insulin -Pseudohyponatremia-corrected sodium 140 -Anemia most likely anemia of chronic disease - VINEET on CPAP - CKD with baseline creatinine < 2.0 * Based on RCRI, patient has 2 risk factors history of TIA and is undergoing an intraperitoneal surgery, with moderate risk of perioperative cardiac event. * Patient medically optimized for surgery but Patient will need cardiology clearance(patient follow with Geovanny Levy MD) * NPO * IV hydration * IV antibiotics * pain management per Surgery. * Insulin NPO SS, check HbA1c, hold oral hypoglycemics * Endo consult * Hold losartan, aspirin and atorvastatin * Continue nocturnal CPAP DVT ppx Hep SC. Full code. Please follow attending recommendations below. Plan: . Problem List: 1. Cholecystitis Subjective Subjective: Patient was seen and examined this morning he is alert awake and oriented to time place and person. No acute events overnight. Patient reports mild abdominal discomfort in the epigastric and right upper quadrant area. Denies any nausea, vomiting, hematemesis, melena, hematochezia. He is nothing by mouth going for cholecystectomy later this afternoon. Vitals were stable. Blood sugars under control. Ranging between 130 to 180. Review of Systems Constitutional: Denies: see HPI. Objective Last 24 Hrs of Vital Signs/I&O Vital Signs Date Time Temp Pulse Resp B/P B/P Pulse O2 O2 Flow FiO2 Mean Ox Delivery Rate 03/28 0936 82 130/82 03/28 0917 Room Air Room Air 03/28 0600 97.7 74 18 130/80 96 03/28 0101 69 96 03/28 0016 98.3 91 24 128/76 96 Room Air 03/27 2309 99.3 60 18 122/64 94 Room Air 03/27 2147 100.9 03/27 2135 100.9 95 18 105/55 96 Room Air 03/27 1959 98.3 75 20 148/72 97 Room Air 03/27 1909 96 Room Air 03/27 1350 98.0 98 17 106/63 99 Room Air Intake & Output 03/28 1600 03/28 0800 03/28 0000 Intake Total 1000 Output Total 250 1225 100 Balance -250 -225 -100 Intake, IV 1000 Output, Urine 250 1225 100 Patient 124.738 kg Weight Weight Reported by Patient Measurement Method Physical Exam Other Physical Findings: General Appearance: alert, comfortable, obese Head: atraumatic Eyes: Bilateral: PERRL, EOMI. Neck: normal inspection Respiratory: normal breath sounds, chest non-tender, lungs clear Cardiovascular: regular rate/rhythm, normal peripheral pulses Gastrointestinal: normal bowel sounds, soft, right upper quadrant tenderness with deep palpation. negative Penny sign, obese Extremities: normal inspection, no edema Neurologic/Psych: awake, alert, oriented x 3, cotton broker II-XII nml as tested, 3-4 out of 5 lower extremity strength Current Medications: Current Medications Sig/Andrea Start time Last Medication Dose Route Stop Time Status Admin Acetaminophen 650 MG Q6PRN PRN 03/27 2300 AC PO Acetaminophen 0 .STK-MED ONE 03/27 2146 DC IV Acetaminophen 1,000 MG ONCE ONE 03/27 2144 DC 03/27 N/A 1 UNIT IV 03/27 Ampicillin Sodium/ 3,000 MG Q6 03/27 2359 AC 03/28 Sulbactam Sodium IV 0501 Sodium Chloride 100 ML Ampicillin Sodium/ 0 .STK-MED ONE 03/27 2201 DC Sulbactam Sodium .ROUTE Ampicillin Sodium/ 3,000 MG ONCE ONE 03/27 2144 DC 03/27 Sulbactam Sodium IV 03/27 2214 2211 Sodium Chloride 100 ML Dextrose/Sodium 1,000 ML .Q8H 03/27 2300 AC 03/28 Chloride IV 0936 Finasteride 5 MG DAILY 03/28 1000 AC 03/28 PO 0936 Heparin Sodium 5,000 UNIT Q8 03/28 0600 AC 03/28 (Porcine) SC 0618 Insulin Human Regular 0 Q6 03/28 0016 AC 03/28 SC 0618 Morphine Sulfate 2 MG Q2P PRN 03/27 2300 AC IV Ondansetron HCl 4 MG Q6-PRN PRN 03/27 2300 AC IV Sodium Chloride 1,000 ML BOLUS ONE 03/27 2114 DC 03/27 IV 03/27 2213 221 Sodium Chloride 1,000 ML BOLUS ONE 03/27 2030 DC 03/27 IV 03/27 Tamsulosin HCl 0.4 MG BID 03/28 1000 AC 03/28 PO 0936 Results Last 24 Hrs Lab/Jesus Results: Laboratory Tests 03/28/17 1000: Lactic Acid Cancelled 03/28/17 0615: Anion Gap 14, Estimated GFR > 60, BUN/Creatinine Ratio 25.0, Total Bilirubin 0.7 , Direct Bilirubin 0.5 H, AST 155 H, ALT 232 H, Alkaline Phosphatase 211 H, Troponin I 0.05, Total Protein 6.3, Albumin 3.2 L, CBC w Diff NO MAN DIFF REQ, RBC 3.62 L, MCV 88.8, MCH 29.5, MCHC 33.3, RDW 14.1, MPV 8.8, Gran % 79.0 H, Lymphocytes % 8.1 L, Monocytes % 11.6 H, Eosinophils % 1.1, Basophils % 0.2, Absolute Granulocytes 7.7 H, Absolute Lymphocytes 0.8 L, Absolute Monocytes 1.1 H, Absolute Eosinophils 0.1, Absolute Basophils 0 03/28/17 0600: Hemoglobin A1c Pending 03/28/17 0400: Lactic Acid Cancelled 03/28/17 0140: Lactic Acid 0.8 03/27/17 2300: Lactic Acid 0.8 03/27/17 1628: Urinalysis LIGHT H, Urine Color YEL, Urine Clarity HAZY H, Urine pH 6.0, Ur Specific [place] 1.025, Urine Protein 30 H, Urine Ketones TRACE H, Urine Nitrite NEG, Urine Bilirubin NEG, Urine Urobilinogen 1.0, Ur Leukocyte Esterase NEG, Ur Microscopic SEDIMENT EXAMINED, Urine RBC 3-5, Urine WBC 3-5 H, Ur Epithelial Cells FEW, Hyaline Casts RARE H, Granular Casts MANY H, Urine Hemoglobin SMALL H, Urine Glucose 100 H 03/27/17 1402: Anion Gap 14, Estimated GFR 43 L, BUN/Creatinine Ratio 25.0, Glucose 320 H, Lactic Acid 3.4 H, Calcium 9.4, Total Bilirubin 0.7, AST 199 H, ALT 281 H, Alkaline Phosphatase 219 H, Creatine Kinase 302 H, Troponin I 0.06, Total Protein 6.7, Albumin 3.4 L, Globulin 3.3, Albumin/Globulin Ratio 1.0 L, Lipase 208, CBC w Diff NO MAN DIFF REQ, RBC 3.83 L, MCV 87.7, MCH 29.8, MCHC 34.0, RDW 14.1, MPV 8.1, Gran % 83.9 H, Lymphocytes % 6.1 L, Monocytes % 9.0, Eosinophils % 0.6, Basophils % 0.4, Absolute Granulocytes 8.9 H, Absolute Lymphocytes 0.6 L, Absolute Monocytes 1.0 H, Absolute Eosinophils 0.1, Absolute Basophils 0, Hepatitis A IgM Ab Pending, Hep Bs Antigen Pending, Hep B Core IgM Ab Conf Pending, Hepatitis C Antibody Pending Microbiology 03/27 2200 BLOOD: Blood Culture - RECD 03/27 2145 BLOOD: Blood Culture - RECD 03/27 1628 URINE ROUT: Urine Culture - RES 03/27 1400 NASOPHARYN: Influenza Virus A & B Rapid Smear - COMP Jose Alejandro ABREU,Emmy 03/28/17 1256: Attending MD Review Statement Attending Sign Off Attending Cosign Statement: I have: examined this patient, reviewed aval EMR data, personally reviewd images, discussd w/resident/PA/ENGRAVER WOOD, discussed mgmt plan w/leonarda, discussed mgmt plan w/pt, agreed w/resident/PA/ENGRAVER WOOD, amended to note. Other Findings: Patient seen and examined, overall doing okay. Abdominal pain is under control. Patient is scheduled to go to operating room this afternoon once Cleared from cardiology. Vital Signs Date Time Temp Pulse Resp B/P B/P Pulse O2 O2 Flow FiO2 Mean Ox Delivery Rate 03/28 0936 82 130/82 03/28 0917 Room Air Room Air 03/28 0600 97.7 74 18 130/80 96 03/28 0101 69 96 03/28 0016 98.3 91 24 128/76 96 Room Air 03/27 2309 99.3 60 18 122/64 94 Room Air 03/27 2147 100.9 03/27 2135 100.9 95 18 105/55 96 Room Air 03/27 1959 98.3 75 20 148/72 97 Room Air 03/27 1909 96 Room Air 03/27 1350 98.0 98 17 106/63 99 Room Air on exam; ao3,nad. cv; s1,s2, rrr resp; clear b/l abd; soft, mild tenderness in ruq, bs+ ext; no edema. Laboratory Tests 03/28 03/28 03/28 1000 0615 0600 Chemistry Sodium (137 - 145 mmol/L) 141 Potassium (3.5 - 5.1 mmol/L) 4.1 Chloride (98 - 107 mmol/L) 100 Carbon Dioxide (22 - 30 mmol/L) 27 Anion Gap (5 - 16) 14 BUN (9 - 20 mg/dL) 30 H Creatinine (0.7 - 1.2 mg/dL) 1.2 Estimated GFR (>60 ml/min) > 60 BUN/Creatinine Ratio (7 - 25 %) 25.0 Hemoglobin A1c (4.2 - 5.8 %) 7.4 H Lactic Acid Cancelled Total Bilirubin (0.2 - 1.3 mg/dL) 0.7 Direct Bilirubin (< 0.4 mg/dL) 0.5 H AST (17 - 59 U/L) 155 H ALT (21 - 72 U/L) 232 H Alkaline Phosphatase (< 127 U/L) 211 H Troponin I (<0.11 ng/ml) 0.05 Total Protein (6.3 - 8.2 g/dL) 6.3 Albumin (3.5 - 5.0 g/dL) 3.2 L Hematology CBC w Diff NO MAN DIFF REQ WBC (4.8 - 10.8 /CUMM) 9.8 RBC (4.70 - 6.10 /CUMM) 3.62 L Hgb (14.0 - 18.0 G/DL) 10.7 L Hct (42 - 52 %) 32.1 L MCV (80.0 - 94.0 FL) 88.8 MCH (27.0 - 31.0 PG) 29.5 MCHC (33.0 - 37.0 G/DL) 33.3 RDW (11.5 - 14.5 %) 14.1 Plt Count (130 - 400 /CUMM) 239 MPV (7.4 - 10.4 FL) 8.8 Gran % (42.2 - 75.2 %) 79.0 H Lymphocytes % (20.5 - 51.1 %) 8.1 L Monocytes % (1.7 - 9.3 %) 11.6 H Eosinophils % (0 - 5 %) 1.1 Basophils % (0.0 - 2.0 %) 0.2 Absolute Granulocytes (1.4 - 6.5 /CUMM) 7.7 H Absolute Lymphocytes (1.2 - 3.4 /CUMM) 0.8 L Absolute Monocytes (0.10 - 0.60 /CUMM) 1.1 H Absolute Eosinophils (0.0 - 0.7 /CUMM) 0.1 Absolute Basophils (0.0 - 0.2 /CUMM) 0 03/28 03/28 03/27 0400 0140 2300 Chemistry Lactic Acid (0.7 - 2.1 mmol/L) Cancelled 0.8 0.8 03/27 03/27 1628 1402 Chemistry Sodium (137 - 145 mmol/L) 136 L Potassium (3.5 - 5.1 mmol/L) 4.2 Chloride (98 - 107 mmol/L) 94 L Carbon Dioxide (22 - 30 mmol/L) 28 Anion Gap (5 - 16) 14 BUN (9 - 20 mg/dL) 40 H Creatinine (0.7 - 1.2 mg/dL) 1.6 H Estimated GFR (>60 ml/min) 43 L BUN/Creatinine Ratio (7 - 25 %) 25.0 Glucose (65 - 99 mg/dL) 320 H Lactic Acid (0.7 - 2.1 mmol/L) 3.4 H Calcium (8.4 - 10.2 mg/dL) 9.4 Total Bilirubin (0.2 - 1.3 mg/dL) 0.7 AST (17 - 59 U/L) 199 H ALT (21 - 72 U/L) 281 H Alkaline Phosphatase (< 127 U/L) 219 H Creatine Kinase (55 - 170 U/L) 302 H Troponin I (<0.11 ng/ml) 0.06 Total Protein (6.3 - 8.2 g/dL) 6.7 Albumin (3.5 - 5.0 g/dL) 3.4 L Globulin (1.9 - 4.2 gm/dL) 3.3 Albumin/Globulin Ratio (1.1 - 2.2 %) 1.0 L Lipase (23 - 300 U/L) 208 Hematology CBC w Diff NO MAN DIFF REQ WBC (4.8 - 10.8 /CUMM) 10.6 RBC (4.70 - 6.10 /CUMM) 3.83 L Hgb (14.0 - 18.0 G/DL) 11.4 L Hct (42 - 52 %) 33.5 L MCV (80.0 - 94.0 FL) 87.7 MCH (27.0 - 31.0 PG) 29.8 MCHC (33.0 - 37.0 G/DL) 34.0 RDW (11.5 - 14.5 %) 14.1 Plt Count (130 - 400 /CUMM) 253 MPV (7.4 - 10.4 FL) 8.1 Gran % (42.2 - 75.2 %) 83.9 H Lymphocytes % (20.5 - 51.1 %) 6.1 L Monocytes % (1.7 - 9.3 %) 9.0 Eosinophils % (0 - 5 %) 0.6 Basophils % (0.0 - 2.0 %) 0.4 Absolute Granulocytes (1.4 - 6.5 /CUMM) 8.9 H Absolute Lymphocytes (1.2 - 3.4 /CUMM) 0.6 L Absolute Monocytes (0.10 - 0.60 /CUMM) 1.0 H Absolute Eosinophils (0.0 - 0.7 /CUMM) 0.1 Absolute Basophils (0.0 - 0.2 /CUMM) 0 Serology Hepatitis A IgM Ab (NONREACTIVE) NONREACTIVE Hep Bs Antigen (NONREACTIVE) NONREACTIVE Hep B Core IgM Ab Conf (NONREACTIVE) NONREACTIVE Hepatitis C Antibody (NONREACTIVE) NONREACTIVE Urines Urinalysis LIGHT H Urine Color (YEL,AMB,STR) YEL Urine Clarity (CLEAR) HAZY H Urine pH (5.0 - 8.0) 6.0 Ur Specific [place] (1.001 - 1.035) 1.025 Urine Protein (NEG,<30 MG/DL) 30 H Urine Ketones (NEG) TRACE H Urine Nitrite (NEG) NEG Urine Bilirubin (NEG) NEG Urine Urobilinogen (0.1 - 1.0 EU/dl) 1.0 Ur Leukocyte Esterase (NEG) NEG Ur Microscopic SEDIMENT EXAMINED Urine RBC (0 - 5 /HPF) 3-5 Urine WBC (0 - 2 /HPF) 3-5 H Ur Epithelial Cells (NONE,FEW) FEW Hyaline Casts (0/LPF) RARE H Granular Casts (NONE /LPF) MANY H Urine Hemoglobin (NEG) SMALL H Urine Glucose (N MG/DL) 100 H Assessment and recommendations; 71 y/o M with pmh sig for VINEET on CPAP, TIA, T2DM, CKD, cervical myelopathy s/p laminectomy, previous lumbar surgery with prophylactic IVC filter placement due to high risk for DVT/PE, is admitted to Surgical service for acute gangrenous cholecystitis and scheduled to go to OR this afternoon. Cardiology clearance before surgery is recommended. Continue abx. Blood sugars are stable. Continue NPO SSI. DVt px; Hep sq.
--- NOTE | 2017-03-28 10:07 | PN- General Surgery ---
See Addendum Subjective Subjective: Patient reports his abdominal pain is currently controlled. He denies chest pain , shortness or breah or trouble breathing. He states his urine is less concentrated this morning. He denies ambulating and states he walks with a walker. He offers no other complaints. Objective Vital Signs and I&Os Vital Signs Date Time Temp Pulse Resp B/P B/P Pulse O2 O2 Flow FiO2 Mean Ox Delivery Rate 03/28 0936 82 130/82 03/28 0917 Room Air Room Air 03/28 0600 97.7 74 18 130/80 96 03/28 0101 69 96 03/28 0016 98.3 91 24 128/76 96 Room Air 03/27 2309 99.3 60 18 122/64 94 Room Air 03/27 214 100.9 03/27 2135 100.9 95 18 105/55 96 Room Air 03/27 1959 98.3 75 20 148/72 97 Room Air 03/27 1909 96 Room Air 03/27 1350 98.0 98 17 106/63 99 Room Air Intake & Output 03/28 1600 03/28 0800 03/28 0000 03/27 1600 03/27 0800 03/27 0000 Intake Total 1000 Output Total 250 1225 100 Balance -250 -225 -100 Intake, IV 1000 Output, Urine 250 1225 100 Patient 275 lb 275 lb Weight Weight Reported by Patient Reported by Patient Measurement Method Physical Exam: Gen - resting comfortably, nontoxic appearing, awake ashleigh lert in NAD Cardiac - S1S2 noted, RRR Lungs - CTAB Abd - soft, protuberant with hyperactive bowel sounds and tender in the RUQ with palpable gallbladder and vericosities throughout, no rebound or guarding noted. Current Medications: Current Medications Sig/Andrea Start time Last Medication Dose Route Stop Time Status Admin Acetaminophen 650 MG Q6PRN PRN 03/270 AC PO Acetaminophen 0 .STK-MED ONE 03/27 2146 DC IV Acetaminophen 1,000 MG ONCE ONE 03/27 2144 DC 03/27 N/A 1 UNIT IV 03/27 Ampicillin Sodium/ 3,000 MG Q6 03/27 2359 AC 03/28 Sulbactam Sodium IV 0501 Sodium Chloride 100 ML Ampicillin Sodium/ 0 .STK-MED ONE 03/27 2201 DC Sulbactam Sodium .ROUTE Ampicillin Sodium/ 3,000 MG ONCE ONE 03/27 2144 DC 03/27 Sulbactam Sodium IV 03/27 2213 221 Sodium Chloride 100 ML Dextrose/Sodium 1,000 ML .Q8H 03/27 2300 AC 03/28 Chloride IV 0936 Finasteride 5 MG DAILY 03/28 1000 AC 03/28 PO 0936 Heparin Sodium 5,000 UNIT Q8 03/28 0600 AC 03/28 (Porcine) SC 0618 Insulin Human Regular 0 Q6 03/28 0016 AC 03/28 SC 0618 Morphine Sulfate 2 MG Q2P PRN 03/27 2300 AC IV Ondansetron HCl 4 MG Q6-PRN PRN 03/27 2300 AC IV Sodium Chloride 1,000 ML BOLUS ONE 03/27 2114 DC 03/27 IV 03/27 Sodium Chloride 1,000 ML BOLUS ONE 03/27 2029 DC 03/27 IV 03/27 Tamsulosin HCl 0.4 MG BID 03/28 1000 AC 03/28 PO 0936 Results Last 48 Hours of Labs: Laboratory Tests 03/28 03/28 03/28 0615 0600 0400 Chemistry Sodium (137 - 145 mmol/L) 141 Potassium (3.5 - 5.1 mmol/L) 4.1 Chloride (98 - 107 mmol/L) 100 Carbon Dioxide (22 - 30 mmol/L) 27 Anion Gap (5 - 16) 14 BUN (9 - 20 mg/dL) 30 H Creatinine (0.7 - 1.2 mg/dL) 1.2 Estimated GFR (>60 ml/min) > 60 BUN/Creatinine Ratio (7 - 25 %) 25.0 Hemoglobin A1c Pending Lactic Acid Cancelled Total Bilirubin (0.2 - 1.3 mg/dL) 0.7 Direct Bilirubin (< 0.4 mg/dL) 0.5 H AST (17 - 59 U/L) 155 H ALT (21 - 72 U/L) 232 H Alkaline Phosphatase (< 127 U/L) 211 H Troponin I (<0.11 ng/ml) 0.05 Total Protein (6.3 - 8.2 g/dL) 6.3 Albumin (3.5 - 5.0 g/dL) 3.2 L Hematology CBC w Diff NO MAN DIFF REQ WBC (4.8 - 10.8 /CUMM) 9.8 RBC (4.70 - 6.10 /CUMM) 3.62 L Hgb (14.0 - 18.0 G/DL) 10.7 L Hct (42 - 52 %) 32.1 L MCV (80.0 - 94.0 FL) 88.8 MCH (27.0 - 31.0 PG) 29.5 MCHC (33.0 - 37.0 G/DL) 33.3 RDW (11.5 - 14.5 %) 14.1 Plt Count (130 - 400 /CUMM) 239 MPV (7.4 - 10.4 FL) 8.8 Gran % (42.2 - 75.2 %) 79.0 H Lymphocytes % (20.5 - 51.1 %) 8.1 L Monocytes % (1.7 - 9.3 %) 11.6 H Eosinophils % (0 - 5 %) 1.1 Basophils % (0.0 - 2.0 %) 0.2 Absolute Granulocytes (1.4 - 6.5 /CUMM) 7.7 H Absolute Lymphocytes (1.2 - 3.4 /CUMM) 0.8 L Absolute Monocytes (0.10 - 0.60 /CUMM) 1.1 H Absolute Eosinophils (0.0 - 0.7 /CUMM) 0.1 Absolute Basophils (0.0 - 0.2 /CUMM) 0 03/28 03/27 03/27 0140 2300 1628 Chemistry Lactic Acid (0.7 - 2.1 mmol/L) 0.8 0.8 Urines Urinalysis LIGHT H Urine Color (YEL,AMB,STR) YEL Urine Clarity (CLEAR) HAZY H Urine pH (5.0 - 8.0) 6.0 Ur Specific [place] (1.001 - 1.035) 1.025 Urine Protein (NEG,<30 MG/DL) 30 H Urine Ketones (NEG) TRACE H Urine Nitrite (NEG) NEG Urine Bilirubin (NEG) NEG Urine Urobilinogen (0.1 - 1.0 EU/dl) 1.0 Ur Leukocyte Esterase (NEG) NEG Ur Microscopic SEDIMENT EXAMINED Urine RBC (0 - 5 /HPF) 3-5 Urine WBC (0 - 2 /HPF) 3-5 H Ur Epithelial Cells (NONE,FEW) FEW Hyaline Casts (0/LPF) RARE H Granular Casts (NONE /LPF) MANY H Urine Hemoglobin (NEG) SMALL H Urine Glucose (N MG/DL) 100 H 03/27 1402 Chemistry Sodium (137 - 145 mmol/L) 136 L Potassium (3.5 - 5.1 mmol/L) 4.2 Chloride (98 - 107 mmol/L) 94 L Carbon Dioxide (22 - 30 mmol/L) 28 Anion Gap (5 - 16) 14 BUN (9 - 20 mg/dL) 40 H Creatinine (0.7 - 1.2 mg/dL) 1.6 H Estimated GFR (>60 ml/min) 43 L BUN/Creatinine Ratio (7 - 25 %) 25.0 Glucose (65 - 99 mg/dL) 320 H Lactic Acid (0.7 - 2.1 mmol/L) 3.4 H Calcium (8.4 - 10.2 mg/dL) 9.4 Total Bilirubin (0.2 - 1.3 mg/dL) 0.7 AST (17 - 59 U/L) 199 H ALT (21 - 72 U/L) 281 H Alkaline Phosphatase (< 127 U/L) 219 H Creatine Kinase (55 - 170 U/L) 302 H Troponin I (<0.11 ng/ml) 0.06 Total Protein (6.3 - 8.2 g/dL) 6.7 Albumin (3.5 - 5.0 g/dL) 3.4 L Globulin (1.9 - 4.2 gm/dL) 3.3 Albumin/Globulin Ratio (1.1 - 2.2 %) 1.0 L Lipase (23 - 300 U/L) 208 Hematology CBC w Diff NO MAN DIFF REQ WBC (4.8 - 10.8 /CUMM) 10.6 RBC (4.70 - 6.10 /CUMM) 3.83 L Hgb (14.0 - 18.0 G/DL) 11.4 L Hct (42 - 52 %) 33.5 L MCV (80.0 - 94.0 FL) 87.7 MCH (27.0 - 31.0 PG) 29.8 MCHC (33.0 - 37.0 G/DL) 34.0 RDW (11.5 - 14.5 %) 14.1 Plt Count (130 - 400 /CUMM) 253 MPV (7.4 - 10.4 FL) 8.1 Gran % (42.2 - 75.2 %) 83.9 H Lymphocytes % (20.5 - 51.1 %) 6.1 L Monocytes % (1.7 - 9.3 %) 9.0 Eosinophils % (0 - 5 %) 0.6 Basophils % (0.0 - 2.0 %) 0.4 Absolute Granulocytes (1.4 - 6.5 /CUMM) 8.9 H Absolute Lymphocytes (1.2 - 3.4 /CUMM) 0.6 L Absolute Monocytes (0.10 - 0.60 /CUMM) 1.0 H Absolute Eosinophils (0.0 - 0.7 /CUMM) 0.1 Absolute Basophils (0.0 - 0.2 /CUMM) 0 Serology Hepatitis A IgM Ab (NONREACTIVE) Pending Hep Bs Antigen (NONREACTIVE) Pending Hep B Core IgM Ab Conf (NONREACTIVE) Pending Hepatitis C Antibody (NONREACTIVE) Pending Assessment/Plan Assessment/Plan This is a 71 year-old male with a history of DMII, VINEET, BPH, HLD, chronic back pain s/p 3 cervical procedures and 1 lumbar procedure, DVT and PE postoperatively following spine surgery in 2011 s/p IVCF and a history of TIA in 2016 who presents with cholecystitis and requires surgical intervention. STEPHANIE improving and lactic acidosis has resolved Obtain cardiac clearance, Dr. Brock to evaluate Keep NPO on IVF Cont unasyn Pain meds prn F/u BCx DVT ppx - hsq RISS w/ FS Q6 Home meds on board OOB, ambulate w/ RW TRC, noctural CPAP Appreciate medicines involvement Dr. Bangura contacted for endocrine mgmt Cont observation status Anticipate Lap Sho today if cleared by cardiology Will d/w Dr. Argueta Core Measures Venous Thromboembolism VTE Risk Factors Acute Medical Illness No Mechanical VTE Prophylaxis d/t N/A MechProphylax Ordered No VTE Pharm Prophylaxis d/t NA PharmProphylax ordered
--- NOTE | 2017-03-28 10:12 | Patient Discharge Instructions ---
Discharge Instructions General Discharge Information You were seen/treated for: Cholecystitis Do not soak the wound: Yes No bath, but you may shower: Yes Special Instructions: Keep incisions clean an dry Change dressings daily as needed Diet Continue normal diet: No Recommended Diet: Low Fat Activity Activity Self Limited: Yes Pounds, do NOT lift more than: 10 Other activity limits: NO heavy lifting or strenous activity Acute Coronary Syndrome Inclusion Criteria At DC or during hospital stay patient has or had the following: ACS DIAGNOSIS No Discharge Core Measures Meds if any: Prescribed or Continued at Discharge Meds if any: NOT Prescribed or Continued at Discharge Congestive Heart Failure Inclusion Criteria At DC or during hospital stay patient has or had the following: CHF DIAGNOSIS No Discharge Core Measures Meds if any: Prescribed or Continued at Discharge Meds if any: NOT Prescribed or Continued at Discharge Cerebrovascular accident Inclusion Criteria At DC or during hospital stay patient has or had the following: CVA/TIA Diagnosis No Discharge Core Measures Meds if any: Prescribed or Continued at Discharge Meds if any: NOT Prescribed or Continued at Discharge Venous thromboembolism Inclusion Criteria VTE Diagnosis No VTE Type NONE VTE Confirmed by (Test) NONE Discharge Core Measures - Per Current guidelines, there needs to be overlap - treatment for the first 5 days of Warfarin therapy. - If discharged on Warfarin prior to 5 days of - overlap therapy, the patient will need to be - assessed for post discharge needs including - *Post discharge parental anticoagulation - *Warfarin and/or parental anticoagulation education - *Follow up date to check INR post discharge At least 5 days overlap therapy as Inpatient No Meds if any: Prescribed or Continued at Discharge Note: Overlap Therapy is Warfarin and Anticoagulant Meds if any: NOT Prescribed or Continued at Discharge
--- NOTE | 2017-03-28 13:05 | Cons- Endocrinology ---
General Information and HPI Consulting Request Date of Consult: 03/28/17 Requested By: surgical team Reason for Consult: management of uncontrolled diabetes type 2 Source of Information: patient, old records Exam Limitations: no limitations History of Present Illness: 71 y/o male with hx of diabetes2, obstructive sleep apnea with CPAP at night, BPH, hyperlipidemia, and chronic back pain status post 3 cervical procedures and 1 lumbar procedure, DVT and PE postoperatively following spine surgery in 2011, s/p IVC filter in place, status post TIA in 2015, was admitted for gangrenous cholecystitis. He has been kept NPO for possible surgery this afternoon. Currently he is on D5 1/2 NS at 125 ml /hour and RISS every 6 hours. His FSGs were 182, 193 and 214. At home, he was on Glipizide ER 2.5 mg daily, metformin 850 mg twice a day and pioglitazone 15 mg daily. His recent HbA1c was 7.4%. Allergies/Medications Allergies: Coded Allergies: NO KNOWN ALLERGIES (07/28/10) Home Med List: 0.9 % Sodium Chloride (Safe Wash) 0.9 % SOLUTION 0.4 MG PO DAILY PROSTRATE ( Reported) Aspirin (Aspirin*) 81 MG TAB.CHEW 1 TAB PO DAILY ANTI-PLATELET Atorvastatin Calcium 80 MG TABLET 1 TAB PO 1700 HIGH CHOLESTEROL Finasteride 5 MG TABLET 1 TAB PO DAILY PROSTRATE (Reported) Glipizide (Glipizide ER) 2.5 MG TAB.ER.24 2.5 MG PO DAILY DM (Reported) Liraglutide (Victoza 3-Dimitris) 0.6 MG/0.1 ML PEN.INJCTR 1.8 MCG SC DAILY DIABETES (Reported) Losartan Potassium 100 MG TABLET 0.5 TAB PO DAILY KIDNEY (Reported) Metformin HCl 850 MG TABLET 1 TAB PO BID DIABETES (Reported) Naproxen Sodium 550 MG TABLET 1 TAB PO BID PAIN (Reported) PT TAKES 440MG BID Oxycodone HCl/Acetaminophen (Oxycodone-Acetaminophen 5-325) 1 EACH TABLET 1 TAB PO TIDPRN PAIN (Reported) Pioglitazone HCl 15 MG TABLET 1 TAB PO DAILY DIABETES (Reported) Tamsulosin HCl 0.4 MG CAP.ER.24H 1 CAP PO DAILY PROSTRATE (Reported) DAILY AT BEDTIME Tamsulosin HCl (Flomax) 0.4 MG CAP.ER.24H 0.4 MG PO BID PROSTRATE (Reported) Tramadol HCl 50 MG TABLET 25 MG PO BID PAIN. (Reported) Tramadol HCl 50 MG TABLET 50 MG PO DAILY PAIN (Reported) Vit D3 & K/Berberine HCl/Hops (Ostera Tablet) 1 EACH TABLET 1 TAB PO BID BONE HEALTH (Reported) Vit D3 & K/Berberine HCl/Hops (Ostera Tablet) 500 UNIT-500 MCG-90 MG-370 MG TABLET (Unknown Dose) PO BID BONE HEALTH (Reported) Review of Systems Review of Systems Constitutional: Reports: see HPI. Cardiovascular: Denies: chest pain. Respiratory: Denies: short of breath. GI: Reports: abdominal pain. Genitourinary: Denies: dysuria. Hematologic/Endocrine: Denies: polyuria, polydipsia. Past History Travel History Traveled to [place] past 21 day No Medical History Blood Transfusion Hx: Yes Neurological: TIA (2016) Cardiovascular: hypertension, hyperlipidemia Respiratory: obstructive sleep apnea (nocturnal cpap) Renal: benign prost hyperplasia Musculoskeletal: spinal stenosis, sp ACDFx2, PCD, lum lami Endocrine: diabetes Blood Disorders: DVT, PE, IVC placed 2011 for postop dvt/pe Cancer(s): NONE Surgical History Surgical History: IVC filter 2012 post cerv decomp 2012 lumbar lami 2011 ACDF 2011 Psychosocial History Where Do You Live? Home Who Do You Live With? spouse Services at Home: None Smoking Status: Former Smoker ETOH Use: occasional use Illicit Drug Use: denies illicit drug use Functional Ability ADLs Independent: dressing, eating, toileting, bathing. Ambulation: walker Exam & Diagnostic Data Last 24 Hrs of Vital Signs/I&O Vital Signs Date Time Temp Pulse Resp B/P B/P Pulse O2 O2 Flow FiO2 Mean Ox Delivery Rate 03/28 0936 82 130/82 03/28 0917 Room Air Room Air 03/28 0600 97.7 74 18 130/80 96 03/28 0101 69 96 03/28 0016 98.3 91 24 128/76 96 Room Air 03/27 2309 99.3 60 18 122/64 94 Room Air 03/277 100.9 03/275 100.9 95 18 105/55 96 Room Air 03/27 1959 98.3 75 20 148/72 97 Room Air 03/27 1909 96 Room Air 03/27 1350 98.0 98 17 106/63 99 Room Air Intake & Output 03/28 1600 03/28 0800 03/28 0000 Intake Total 1000 Output Total 800 1225 100 Balance -800 -225 -100 Intake, IV 1000 Output, Urine 800 1225 100 Patient 275 lb Weight Weight Reported by Patient Measurement Method Physical Exam General Appearance: no apparent distress Neck: normal inspection Respiratory: lungs clear Cardiovascular: regular rate/rhythm Gastrointestinal: tenderness (RUQ) Extremities: normal inspection, no edema Labs/Jesus Results: Laboratory Tests 03/28 03/28 03/28 1000 0615 0600 Chemistry Sodium (137 - 145 mmol/L) 141 Potassium (3.5 - 5.1 mmol/L) 4.1 Chloride (98 - 107 mmol/L) 100 Carbon Dioxide (22 - 30 mmol/L) 27 Anion Gap (5 - 16) 14 BUN (9 - 20 mg/dL) 30 H Creatinine (0.7 - 1.2 mg/dL) 1.2 Estimated GFR (>60 ml/min) > 60 BUN/Creatinine Ratio (7 - 25 %) 25.0 Hemoglobin A1c (4.2 - 5.8 %) 7.4 H Lactic Acid Cancelled Total Bilirubin (0.2 - 1.3 mg/dL) 0.7 Direct Bilirubin (< 0.4 mg/dL) 0.5 H AST (17 - 59 U/L) 155 H ALT (21 - 72 U/L) 232 H Alkaline Phosphatase (< 127 U/L) 211 H Troponin I (<0.11 ng/ml) 0.05 Total Protein (6.3 - 8.2 g/dL) 6.3 Albumin (3.5 - 5.0 g/dL) 3.2 L Hematology CBC w Diff NO MAN DIFF REQ WBC (4.8 - 10.8 /CUMM) 9.8 RBC (4.70 - 6.10 /CUMM) 3.62 L Hgb (14.0 - 18.0 G/DL) 10.7 L Hct (42 - 52 %) 32.1 L MCV (80.0 - 94.0 FL) 88.8 MCH (27.0 - 31.0 PG) 29.5 MCHC (33.0 - 37.0 G/DL) 33.3 RDW (11.5 - 14.5 %) 14.1 Plt Count (130 - 400 /CUMM) 239 MPV (7.4 - 10.4 FL) 8.8 Gran % (42.2 - 75.2 %) 79.0 H Lymphocytes % (20.5 - 51.1 %) 8.1 L Monocytes % (1.7 - 9.3 %) 11.6 H Eosinophils % (0 - 5 %) 1.1 Basophils % (0.0 - 2.0 %) 0.2 Absolute Granulocytes (1.4 - 6.5 /CUMM) 7.7 H Absolute Lymphocytes (1.2 - 3.4 /CUMM) 0.8 L Absolute Monocytes (0.10 - 0.60 /CUMM) 1.1 H Absolute Eosinophils (0.0 - 0.7 /CUMM) 0.1 Absolute Basophils (0.0 - 0.2 /CUMM) 0 03/28 03/28 03/27 0400 0140 2300 Chemistry Lactic Acid (0.7 - 2.1 mmol/L) Cancelled 0.8 0.8 03/27 03/27 1628 1402 Chemistry Sodium (137 - 145 mmol/L) 136 L Potassium (3.5 - 5.1 mmol/L) 4.2 Chloride (98 - 107 mmol/L) 94 L Carbon Dioxide (22 - 30 mmol/L) 28 Anion Gap (5 - 16) 14 BUN (9 - 20 mg/dL) 40 H Creatinine (0.7 - 1.2 mg/dL) 1.6 H Estimated GFR (>60 ml/min) 43 L BUN/Creatinine Ratio (7 - 25 %) 25.0 Glucose (65 - 99 mg/dL) 320 H Lactic Acid (0.7 - 2.1 mmol/L) 3.4 H Calcium (8.4 - 10.2 mg/dL) 9.4 Total Bilirubin (0.2 - 1.3 mg/dL) 0.7 AST (17 - 59 U/L) 199 H ALT (21 - 72 U/L) 281 H Alkaline Phosphatase (< 127 U/L) 219 H Creatine Kinase (55 - 170 U/L) 302 H Troponin I (<0.11 ng/ml) 0.06 Total Protein (6.3 - 8.2 g/dL) 6.7 Albumin (3.5 - 5.0 g/dL) 3.4 L Globulin (1.9 - 4.2 gm/dL) 3.3 Albumin/Globulin Ratio (1.1 - 2.2 %) 1.0 L Lipase (23 - 300 U/L) 208 Hematology CBC w Diff NO MAN DIFF REQ WBC (4.8 - 10.8 /CUMM) 10.6 RBC (4.70 - 6.10 /CUMM) 3.83 L Hgb (14.0 - 18.0 G/DL) 11.4 L Hct (42 - 52 %) 33.5 L MCV (80.0 - 94.0 FL) 87.7 MCH (27.0 - 31.0 PG) 29.8 MCHC (33.0 - 37.0 G/DL) 34.0 RDW (11.5 - 14.5 %) 14.1 Plt Count (130 - 400 /CUMM) 253 MPV (7.4 - 10.4 FL) 8.1 Gran % (42.2 - 75.2 %) 83.9 H Lymphocytes % (20.5 - 51.1 %) 6.1 L Monocytes % (1.7 - 9.3 %) 9.0 Eosinophils % (0 - 5 %) 0.6 Basophils % (0.0 - 2.0 %) 0.4 Absolute Granulocytes (1.4 - 6.5 /CUMM) 8.9 H Absolute Lymphocytes (1.2 - 3.4 /CUMM) 0.6 L Absolute Monocytes (0.10 - 0.60 /CUMM) 1.0 H Absolute Eosinophils (0.0 - 0.7 /CUMM) 0.1 Absolute Basophils (0.0 - 0.2 /CUMM) 0 Serology Hepatitis A IgM Ab (NONREACTIVE) NONREACTIVE Hep Bs Antigen (NONREACTIVE) NONREACTIVE Hep B Core IgM Ab Conf (NONREACTIVE) NONREACTIVE Hepatitis C Antibody (NONREACTIVE) NONREACTIVE Urines Urinalysis LIGHT H Urine Color (YEL,AMB,STR) YEL Urine Clarity (CLEAR) HAZY H Urine pH (5.0 - 8.0) 6.0 Ur Specific [place] (1.001 - 1.035) 1.025 Urine Protein (NEG,<30 MG/DL) 30 H Urine Ketones (NEG) TRACE H Urine Nitrite (NEG) NEG Urine Bilirubin (NEG) NEG Urine Urobilinogen (0.1 - 1.0 EU/dl) 1.0 Ur Leukocyte Esterase (NEG) NEG Ur Microscopic SEDIMENT EXAMINED Urine RBC (0 - 5 /HPF) 3-5 Urine WBC (0 - 2 /HPF) 3-5 H Ur Epithelial Cells (NONE,FEW) FEW Hyaline Casts (0/LPF) RARE H Granular Casts (NONE /LPF) MANY H Urine Hemoglobin (NEG) SMALL H Urine Glucose (N MG/DL) 100 H Assessment/Plan Assessment/Plan 71 y/o male with hx of diabetes2, obstructive sleep apnea with CPAP at night, BPH, hyperlipidemia, and chronic back pain status post 3 cervical procedures and 1 lumbar procedure, DVT and PE postoperatively following spine surgery in 2011, s/p IVC filter in place, status post TIA in 2015, was admitted for gangrenous cholecystitis. He has been kept NPO for possible surgery this afternoon. Currently he is on D5 1/2 NS at 125 ml /hour and RISS every 6 hours. DM management: 1. add Levemir 10 units daily; 2. stop RISS every 6 hours; 3. start Novolog coverage every 4 hours while he is on D51/2 NS at 125 ml/hour; detail see the inpatient DM order; 4. monitor FSGs and electrolytes. please inform me if his IVF will be changes and then his insulin regimen will be adjusted accordingly. will follow. Inpatient Diabetes Orders Every 4 Hours: Bolus Insulin: Novolog < 80 mg/dl: no coverage 80-100 mg/dl: no coverage 101-120 mg/dl: 3 units 121-150 mg/dl: 3 units 151-200 mg/dl: 5 units 201-250 mg/dl: 7 units 251-300 mg/dl: 9 units 301-350 mg/dl: 11 units 351-400 mg/dl: 13 units > 400 mg/dl: 15 units Consult Acknowledgment - Thank you for your consult request.
--- NOTE | 2017-03-28 13:14 | Cons- Cardiology ---
General Information and HPI Consulting Request Date of Consult: 03/28/17 Requested By: Kendall ABREU,Kevin Gates History of Present Illness: Mr. Crum is a 71 year old male with history of dyslipidemia, remote tobacco abuse, diabetes and a family history or premature coronary artery disease. He also had a TIA which is a marker for atherosclerotic disease. Finally, this patient has difficulty walking since a cervical laminectomy. That surgery was also complicated by a DVT/PE for which the patient now has an IVC filter. At baseline, this patient can walk with a walker for over a mile without experiencing any chest pain, pressure, tightness, shortness of breath, lightheadedness or palpitations. This patient has not been feeling well over the last week, and believed he had the flu. He noted nausea, vomiting and diarrhea accompanied with right upper quadrant pain and right flank pain for about a week. The pain has subsided and he is now pain-free. He also had subjective fever and chills at home. Allergies/Medications Allergies: Coded Allergies: NO KNOWN ALLERGIES (07/28/10) Home Med List: 0.9 % Sodium Chloride (Safe Wash) 0.9 % SOLUTION 0.4 MG PO DAILY PROSTRATE ( Reported) Aspirin (Aspirin*) 81 MG TAB.CHEW 1 TAB PO DAILY ANTI-PLATELET Atorvastatin Calcium 80 MG TABLET 1 TAB PO 1700 HIGH CHOLESTEROL Finasteride 5 MG TABLET 1 TAB PO DAILY PROSTRATE (Reported) Glipizide (Glipizide ER) 2.5 MG TAB.ER.24 2.5 MG PO DAILY DM (Reported) Liraglutide (Victoza 3-Dimitris) 0.6 MG/0.1 ML PEN.INJCTR 1.8 MCG SC DAILY DIABETES (Reported) Losartan Potassium 100 MG TABLET 0.5 TAB PO DAILY KIDNEY (Reported) Metformin HCl 850 MG TABLET 1 TAB PO BID DIABETES (Reported) Naproxen Sodium 550 MG TABLET 1 TAB PO BID PAIN (Reported) PT TAKES 440MG BID Oxycodone HCl/Acetaminophen (Oxycodone-Acetaminophen 5-325) 1 EACH TABLET 1 TAB PO TIDPRN PAIN (Reported) Pioglitazone HCl 15 MG TABLET 1 TAB PO DAILY DIABETES (Reported) Tamsulosin HCl 0.4 MG CAP.ER.24H 1 CAP PO DAILY PROSTRATE (Reported) DAILY AT BEDTIME Tamsulosin HCl (Flomax) 0.4 MG CAP.ER.24H 0.4 MG PO BID PROSTRATE (Reported) Tramadol HCl 50 MG TABLET 25 MG PO BID PAIN. (Reported) Tramadol HCl 50 MG TABLET 50 MG PO DAILY PAIN (Reported) Vit D3 & K/Berberine HCl/Hops (Ostera Tablet) 1 EACH TABLET 1 TAB PO BID BONE HEALTH (Reported) Vit D3 & K/Berberine HCl/Hops (Ostera Tablet) 500 UNIT-500 MCG-90 MG-370 MG TABLET (Unknown Dose) PO BID BONE HEALTH (Reported) Review of Systems Review of Systems: Sleep apnea Past History Travel History Traveled to [place] past 21 day No Medical History Blood Transfusion Hx: Yes Neurological: TIA (2016) Cardiovascular: hypertension, hyperlipidemia Respiratory: obstructive sleep apnea (nocturnal cpap) Renal: benign prost hyperplasia Musculoskeletal: spinal stenosis, sp ACDFx2, PCD, lum lami Endocrine: diabetes Blood Disorders: DVT, PE, IVC placed 2011 for postop dvt/pe Cancer(s): NONE Surgical History Surgical History: IVC filter 2012 post cerv decomp 2012 lumbar lami 2010 ACDF 2010 Psychosocial History Where Do You Live? Home Who Do You Live With? spouse Services at Home: None Smoking Status: Former Smoker ETOH Use: occasional use Illicit Drug Use: denies illicit drug use Functional Ability ADLs Independent: dressing, eating, toileting, bathing. Ambulation: walker Exam & Diagnostic Data Vital Signs and I&O Vital Signs Date Time Temp Pulse Resp B/P B/P Pulse O2 O2 Flow FiO2 Mean Ox Delivery Rate 03/28 0936 82 130/82 03/28 0917 Room Air Room Air 03/28 0600 97.7 74 18 130/80 96 03/28 0101 69 96 03/28 0016 98.3 91 24 128/76 96 Room Air 03/27 2309 99.3 60 18 122/64 94 Room Air 03/27 2147 100.9 03/27 2135 100.9 95 18 105/55 96 Room Air 03/27 1959 98.3 75 20 148/72 97 Room Air 03/27 1909 96 Room Air 03/27 1350 98.0 98 17 106/63 99 Room Air Intake & Output 03/28 1600 03/28 0800 03/28 0000 03/27 1600 03/27 0800 03/27 0000 Intake Total 1000 Output Total 800 1225 100 Balance -800 -225 -100 Intake, IV 1000 Output, Urine 800 1225 100 Patient 275 lb 275 lb Weight Weight Reported by Patient Reported by Patient Measurement Method Physical Exam: General: WD/obese male in NAD; alert and oriented x 3 HEENT: NC/AT, PERRL, EOMI Neck: no JVD, no carotid bruit Heart: RRR w/o murmur Lungs: clear bilaterally Abdomen: soft, NT, +ve bowel sounds Extremities: no edema Diagnostic Data EKG Results sinus rhythm with LAFB Assessment/Plan Assessment/Plan * This patient is mildly active and has never experienced an [place] or decompensated heart failure. His blood pressure is under good control and he has a normal EF. Despite his multile risk factors for coronary artery disease he is a reasonable candidate for surgery without any additional cardiac workup although he should certainly have his risk factors carefully followed post surgery as an outpatient. * In consideration of his elevated hepatic transaminases I would continue to hold his statin but this will likely be able to be restarted in the future. Consult Acknowledgment - Thank you for your consult request.
[2017-03-28 14:51] VITALS: BP 140/80
[2017-03-28 15:49] LABS: PT 14.1 SEC (9.4-12.5)
[2017-03-28 16:45] VITALS: BP 142/78
--- NOTE | 2017-03-28 20:15 | Operative Report ---
Operative/Inv Procedure Report Surgery Date: 03/28/17 Name of Procedure: 1. Laparoscopic cholecystectomy 2. Drainage of subhepatic abscess Pre-Operative Diagnosis: Acute cholecystitis Post-Operative Diagnosis: Same Perforation of the gallbladder with contained abscess Estimated Blood Loss: 600ml Surgeon/Digital Media Specialist: Kendall ABREU,Kevin Gates/Peter BORDEN/Ese BORDEN Anesthesia: general endotracheal tube Drains: 15 Slovenian REKHA Specimens: Gallbladder Microbiology: Abscess fluid for culture Operative Indication: 71-year-old male with 1 week history of right upper quadrant abdominal pain. He 's found to have acute cholecystitis presents for resection Operative/Procedure Note Note: After informed consent patient is brought to the operating room and laid supine. General anesthesia was obtained and her abdomen was prepped and draped. The skin above the umbilicus infiltrated with local anesthesia and a curvilinear incision made sharply. We came down through the subcutaneous tissues bluntly and grasped the fascia with Tiffanie's. A fasciotomy was created sharply and stay sutures placed. The peritoneum was entered sharply and a blunt Morton port was placed. Pneumoperitoneum was achieved. 3, 5 mm ports were placed in the epigastrium and right upper quadrant after local anesthesia was instilled and under direct vision the camera. She's placed in reverse Trendelenburg and rotated towards the left. The gallbladder was obscured by dense adhesions of omentum to the liver edge. These were taken down with cautery. We identified the gallbladder wall and grasped. It was very thickened and difficult to grab. Adhesions were taken down painstakingly circumferentially with cautery and blunt dissection. At one point the gallbladder began leaking purulent fluid. There was an perforated with suction media marketing director and it was evacuated. The infundibulum was identified and dissection carried forth. It was very difficult with oozing throughout the entire wall the gallbladder. Eventually we found callosum node and dissected it free. The artery was behind it and it was circumferentially dissected with cautery and blunt dissection. It was then doubly ligated with clips the triangle of Calot was filled with purulent material with evidence of posterior wall perforation of the gallbladder and subhepatic abscess. This area was evacuated and the specimen was sent for culture. The cystic duct was more elusive defined. It was quite thickened with a lot of inflammatory tissue around it. Eventually opened the gallbladder and traced it down. Once we identified it was clipped ligated with a 10 mm Hemolocks. Gallbladder is removed from the fossa electrocautery. The entire posterior wall was purulent. It was placed in Endo Catch bag and cinched up. There were approximately 20-30 stones that escaped the gallbladder during the dissection. These were grasped and placed into the Endo Catch bag prior to cinching up. Right upper quadrant was and suction irrigated normal saline. Hemostasis achieved with cautery. A 15 Slovenian Dick-Rhoades drain was placed through lateral port site and into the subhepatic space. It was sutured to skin with 2-0 silk. The ports were then removed and the gallbladder delivered and passed off the field. The fascia was closed with 0 Vicryl suture. Skin incisions closed with 4-0 Vicryl. Steri- Strips and sterile dressing applied. Sponge and needle counts are correct. CC: Sveta ABREU,Orlando Espinoza
[2017-03-28 21:30] VITALS: BP 122/78
--- NOTE | 2017-03-28 21:47 | PN- General Surgery ---
Subjective Subjective: POST-OP CHECK PT SITTING IN BED, MINIMAL PAIN. NO N/V. HAS NOT AMBULATED YET. HAS NOT VOIDED YET DENIES FEVER, CP/SOB Objective Vital Signs and I&Os Vital Signs Date Time Temp Pulse Resp B/P B/P Pulse O2 O2 Flow FiO2 Mean Ox Delivery Rate 03/28 1645 98.7 90 18 142/78 96 Room Air 03/28 1451 98.6 85 18 140/80 96 03/28 0936 82 130/82 03/28 0917 Room Air Room Air 03/28 0600 97.7 74 18 130/80 96 03/28 0101 69 96 03/28 0016 98.3 91 24 128/76 96 Room Air 03/27 2309 99.3 60 18 122/64 94 Room Air 03/27 2147 100.9 Intake & Output 03/28 1600 03/28 0800 03/28 0000 03/27 1600 03/27 0800 03/27 0000 Intake Total 875 1000 Output Total 1075 1225 100 Balance -200 -225 -100 Intake, IV 875 1000 Output, Urine 1075 1225 100 Patient 275 lb 275 lb Weight Weight Reported by Patient Reported by Patient Measurement Method Physical Exam: GEN-NAD RESP-CLEAR CARDIO-RRR ABD- OBESE, APPROPRIATELY TENDER, DRESSINGS CLEAN AND DRY. REKHA DRAIN IN RUQ WITH ABOUT 10CC SEROSANG DRAINAGE IN BULB Current Medications: Current Medications Sig/Andrea Start time Last Medication Dose Route Stop Time Status Admin Acetaminophen 650 MG Q6PRN PRN 03/27 2300 AC PO Acetaminophen 0 .STK-MED ONE 03/27 2146 DC IV Acetaminophen 1,000 MG ONCE ONE 03/27 2144 DC 03/27 N/A 1 UNIT IV 03/27 Ampicillin Sodium/ 3,000 MG Q6 03/27 2359 AC 03/28 Sulbactam Sodium IV 1150 Sodium Chloride 100 ML Ampicillin Sodium/ 0 .STK-MED ONE 03/27 2201 DC Sulbactam Sodium .ROUTE Ampicillin Sodium/ 3,000 MG ONCE ONE 03/27 2144 DC 03/27 Sulbactam Sodium IV 03/27 2213 221 Sodium Chloride 100 ML Dextrose/Sodium 1,000 ML .Q8H 03/27 2300 AC 03/28 Chloride IV 0936 Finasteride 5 MG DAILY 03/28 1000 AC 03/28 PO 0936 Heparin Sodium 5,000 UNIT Q8 03/28 0600 AC 03/28 (Porcine) SC 0618 Insulin Aspart 0 Q4 03/28 1400 AC 03/28 SC 1414 Insulin Detemir 10 UNITS DAILY 03/28 1303 AC 03/28 SC 1413 Insulin Human Regular 0 Q6 03/28 0016 DC 03/28 SC 1150 Morphine Sulfate 2 MG Q2P PRN 03/27 2300 AC IV Ondansetron HCl 4 MG Q6-PRN PRN 03/27 2300 AC IV Sodium Chloride 1,000 ML BOLUS ONE 03/27 2114 DC 03/27 IV 03/27 221 2211 Tamsulosin HCl 0.4 MG BID 03/28 1000 AC 03/28 PO 0936 Results Last 48 Hours of Labs: Laboratory Tests 03/28 03/28 03/28 1441 1000 0615 Chemistry Sodium (137 - 145 mmol/L) 141 Potassium (3.5 - 5.1 mmol/L) 4.1 Chloride (98 - 107 mmol/L) 100 Carbon Dioxide (22 - 30 mmol/L) 27 Anion Gap (5 - 16) 14 BUN (9 - 20 mg/dL) 30 H Creatinine (0.7 - 1.2 mg/dL) 1.2 Estimated GFR (>60 ml/min) > 60 BUN/Creatinine Ratio (7 - 25 %) 25.0 Lactic Acid Cancelled Total Bilirubin (0.2 - 1.3 mg/dL) 0.7 Direct Bilirubin (< 0.4 mg/dL) 0.5 H AST (17 - 59 U/L) 155 H ALT (21 - 72 U/L) 232 H Alkaline Phosphatase (< 127 U/L) 211 H Troponin I (<0.11 ng/ml) 0.05 Total Protein (6.3 - 8.2 g/dL) 6.3 Albumin (3.5 - 5.0 g/dL) 3.2 L Coagulation PT (9.4 - 12.5 SEC) 14.1 H INR (0.90 - 1.17) 1.35 H Hematology CBC w Diff NO MAN DIFF REQ WBC (4.8 - 10.8 /CUMM) 9.8 RBC (4.70 - 6.10 /CUMM) 3.62 L Hgb (14.0 - 18.0 G/DL) 10.7 L Hct (42 - 52 %) 32.1 L MCV (80.0 - 94.0 FL) 88.8 MCH (27.0 - 31.0 PG) 29.5 MCHC (33.0 - 37.0 G/DL) 33.3 RDW (11.5 - 14.5 %) 14.1 Plt Count (130 - 400 /CUMM) 239 MPV (7.4 - 10.4 FL) 8.8 Gran % (42.2 - 75.2 %) 79.0 H Lymphocytes % (20.5 - 51.1 %) 8.1 L Monocytes % (1.7 - 9.3 %) 11.6 H Eosinophils % (0 - 5 %) 1.1 Basophils % (0.0 - 2.0 %) 0.2 Absolute Granulocytes (1.4 - 6.5 /CUMM) 7.7 H Absolute Lymphocytes (1.2 - 3.4 /CUMM) 0.8 L Absolute Monocytes (0.10 - 0.60 /CUMM) 1.1 H Absolute Eosinophils (0.0 - 0.7 /CUMM) 0.1 Absolute Basophils (0.0 - 0.2 /CUMM) 0 03/28 03/28 03/28 03/27 0600 0400 0140 2300 Chemistry Hemoglobin A1c (4.2 - 5.8 %) 7.4 H Lactic Acid (0.7 - 2.1 mmol/L) Cancelled 0.8 0.8 03/27 03/27 1628 1402 Chemistry Sodium (137 - 145 mmol/L) 136 L Potassium (3.5 - 5.1 mmol/L) 4.2 Chloride (98 - 107 mmol/L) 94 L Carbon Dioxide (22 - 30 mmol/L) 28 Anion Gap (5 - 16) 14 BUN (9 - 20 mg/dL) 40 H Creatinine (0.7 - 1.2 mg/dL) 1.6 H Estimated GFR (>60 ml/min) 43 L BUN/Creatinine Ratio (7 - 25 %) 25.0 Glucose (65 - 99 mg/dL) 320 H Lactic Acid (0.7 - 2.1 mmol/L) 3.4 H Calcium (8.4 - 10.2 mg/dL) 9.4 Total Bilirubin (0.2 - 1.3 mg/dL) 0.7 AST (17 - 59 U/L) 199 H ALT (21 - 72 U/L) 281 H Alkaline Phosphatase (< 127 U/L) 219 H Creatine Kinase (55 - 170 U/L) 302 H Troponin I (<0.11 ng/ml) 0.06 Total Protein (6.3 - 8.2 g/dL) 6.7 Albumin (3.5 - 5.0 g/dL) 3.4 L Globulin (1.9 - 4.2 gm/dL) 3.3 Albumin/Globulin Ratio (1.1 - 2.2 %) 1.0 L Lipase (23 - 300 U/L) 208 Hematology CBC w Diff NO MAN DIFF REQ WBC (4.8 - 10.8 /CUMM) 10.6 RBC (4.70 - 6.10 /CUMM) 3.83 L Hgb (14.0 - 18.0 G/DL) 11.4 L Hct (42 - 52 %) 33.5 L MCV (80.0 - 94.0 FL) 87.7 MCH (27.0 - 31.0 PG) 29.8 MCHC (33.0 - 37.0 G/DL) 34.0 RDW (11.5 - 14.5 %) 14.1 Plt Count (130 - 400 /CUMM) 253 MPV (7.4 - 10.4 FL) 8.1 Gran % (42.2 - 75.2 %) 83.9 H Lymphocytes % (20.5 - 51.1 %) 6.1 L Monocytes % (1.7 - 9.3 %) 9.0 Eosinophils % (0 - 5 %) 0.6 Basophils % (0.0 - 2.0 %) 0.4 Absolute Granulocytes (1.4 - 6.5 /CUMM) 8.9 H Absolute Lymphocytes (1.2 - 3.4 /CUMM) 0.6 L Absolute Monocytes (0.10 - 0.60 /CUMM) 1.0 H Absolute Eosinophils (0.0 - 0.7 /CUMM) 0.1 Absolute Basophils (0.0 - 0.2 /CUMM) 0 Serology Hepatitis A IgM Ab (NONREACTIVE) NONREACTIVE Hep Bs Antigen (NONREACTIVE) NONREACTIVE Hep B Core IgM Ab Conf (NONREACTIVE) NONREACTIVE Hepatitis C Antibody (NONREACTIVE) NONREACTIVE Urines Urinalysis LIGHT H Urine Color (YEL,AMB,STR) YEL Urine Clarity (CLEAR) HAZY H Urine pH (5.0 - 8.0) 6.0 Ur Specific [place] (1.001 - 1.035) 1.025 Urine Protein (NEG,<30 MG/DL) 30 H Urine Ketones (NEG) TRACE H Urine Nitrite (NEG) NEG Urine Bilirubin (NEG) NEG Urine Urobilinogen (0.1 - 1.0 EU/dl) 1.0 Ur Leukocyte Esterase (NEG) NEG Ur Microscopic SEDIMENT EXAMINED Urine RBC (0 - 5 /HPF) 3-5 Urine WBC (0 - 2 /HPF) 3-5 H Ur Epithelial Cells (NONE,FEW) FEW Hyaline Casts (0/LPF) RARE H Granular Casts (NONE /LPF) MANY H Urine Hemoglobin (NEG) SMALL H Urine Glucose (N MG/DL) 100 H Assessment/Plan Assessment/Plan [id number] M HERE WITH GANGRENOUS GALLBLADDER SP LAP LACHELLE POD0 CONT ABX- UNASYN PAIN MANAGEMENT ENCOURAGE IS DVT PPX- HEPARIN AND ALPS, PT HAS HX OF DVT/PE CLEARS REGULAR HOME MEDS Core Measures Venous Thromboembolism VTE Risk Factors Acute Medical Illness No Mechanical VTE Prophylaxis d/t N/A MechProphylax Ordered No VTE Pharm Prophylaxis d/t NA PharmProphylax ordered
[2017-03-29 02:05] VITALS: BP 150/80
[2017-03-29 06:43] VITALS: BP 120/80
[2017-03-29 08:06] LABS: ABSOLUTE BASOPHIL COUNT 0 /CUMM (0.0-0.2); ABSOLUTE EOSINOPHIL COUNT 0 /CUMM (0.0-0.7); ABSOLUTE LYMPH COUNT 0.5 /CUMM (1.2-3.4); ABSOLUTE MONOCYTE COUNT 0.9 /CUMM (0.10-0.60); BASOPHIL % 0.1 % (0.0-2.0); EOSINOPHIL % 0 % (0-5); HEMATOCRIT 31.9 % (42-52); MEAN CORPUSCULAR HGB 29.9 PG (27.0-31.0); MEAN CORPUSCULAR VOLUME 87.8 FL (80.0-94.0)
--- NOTE | 2017-03-29 08:12 | PN- General Surgery ---
See Addendum Subjective Subjective: Reports some nausea, heartburn, and belching this morning. Taking clears. No flatus. Out of bed to bathroom. Denies dizziness. No shortness of breath. No chest pains. Objective Vital Signs and I&Os Vital Signs Date Time Temp Pulse Resp B/P B/P Pulse O2 O2 Flow FiO2 Mean Ox Delivery Rate 03/29 0759 150/70 03/29 0643 98.9 92 20 120/80 92 Room Air 03/29 0205 97.9 101 20 150/80 95 CPAP 03/29 0008 101 97 03/29 0000 CPAP 03/28 2144 92 128/78 03/28 2130 98.0 92 18 122/78 98 Nasal 1.0L Cannula 03/28 1645 98.7 90 18 142/78 96 Room Air 03/28 1451 98.6 85 18 140/80 96 03/28 0936 82 130/82 03/28 0917 Room Air Room Air Intake & Output 03/29 1600 03/29 0800 03/29 0000 03/28 1600 03/28 0800 03/28 0000 Intake Total 1480 1510 464 9220 Output Total 690 168 3233 1225 100 Balance 760 955 -200 -225 -100 Intake, IV 1000 3314 149 1325 Intake, Oral 480 100 Output, 20 20 Drainage Output, Urine 057 554 5808 1225 100 Patient 275 lb Weight Weight Reported by Patient Measurement Method Physical Exam: General - alert & oriented x 3. comfortable appearing. no acute distress. Lungs - decreased breath sound b/l bases. clear. Cardiac - s1s2. reg Abdomen - obese. dressings c/d/i. REKHA drain with bloody drainage. Extremities - warm bilaterally. no c/c/e. calves soft and nontender b/l. Current Medications: Current Medications Sig/Andrea Start time Last Medication Dose Route Stop Time Status Admin Acetaminophen 1,000 MG Q6H 03/29 0900 AC N/A 1 UNIT IV 03/30 0314 Acetaminophen 1,000 MG .STK-MED ONE 03/28 1738 DC IV 03/28 173 Acetaminophen 650 MG Q6PRN PRN 03/27 2300 DC PO Ampicillin Sodium/ 3,000 MG Q6 03/27 2359 AC 03/29 Sulbactam Sodium IV 0556 Sodium Chloride 100 ML Dextrose/Sodium 1,000 ML .Q10H 03/27 2300 AC 03/29 Chloride IV 0800 Famotidine 20 MG BID 03/29 1000 AC IV Fentanyl Citrate 250 MCG .STK-MED ONE 03/28 1737 DC IM 03/28 1738 Finasteride 5 MG DAILY 03/28 1000 AC 03/29 PO 0759 Heparin Sodium 5,000 UNIT Q8 03/28 0600 AC 03/29 (Porcine) SC 0556 Hydromorphone HCl 2 MG .STK-MED ONE 03/28 1739 DC IM 03/28 1740 Insulin Aspart 0 Q4 03/28 1400 AC 03/29 SC 0612 Insulin Detemir 10 UNITS DAILY 03/28 1303 AC 03/28 SC 1413 Insulin Human Regular 0 Q6 03/28 0016 DC 03/28 SC 1150 Midazolam HCl 2 MG .STK-MED ONE 03/28 1738 DC IM 03/28 1739 Morphine Sulfate 2 MG Q2P PRN 03/27 2300 AC IV Ondansetron HCl 4 MG Q6-PRN PRN 03/27 2300 AC 03/29 IV 0739 Oxycodone HCl 5 MG Q4-6 PRN PRN 03/29 0815 AC PO Oxycodone HCl 10 MG Q4-6 PRN PRN 03/29 0815 AC PO Oxycodone/ 1 TAB Q6P PRN 03/28 2200 DC 03/29 Acetaminophen PO 0616 Oxycodone/ 2 TAB Q6P PRN 03/28 2200 DC Acetaminophen PO Tamsulosin HCl 0.4 MG BID 03/28 1000 AC 03/29 PO 0759 Results Last 48 Hours of Labs: Laboratory Tests 03/29 03/28 03/28 0720 1441 1000 Chemistry Sodium Pending Potassium Pending Chloride Pending Carbon Dioxide Pending Anion Gap Pending BUN Pending Creatinine Pending BUN/Creatinine Ratio Pending Lactic Acid Cancelled Total Bilirubin Pending Direct Bilirubin Pending AST Pending ALT Pending Alkaline Phosphatase Pending Total Protein Pending Albumin Pending Coagulation PT (9.4 - 12.5 SEC) 14.1 H INR (0.90 - 1.17) 1.35 H Hematology CBC w Diff Pending WBC Pending RBC Pending Hgb Pending Hct Pending MCV Pending MCH Pending MCHC Pending RDW Pending Plt Count Pending MPV Pending 03/28 03/28 03/28 0615 0600 0400 Chemistry Sodium (137 - 145 mmol/L) 141 Potassium (3.5 - 5.1 mmol/L) 4.1 Chloride (98 - 107 mmol/L) 100 Carbon Dioxide (22 - 30 mmol/L) 27 Anion Gap (5 - 16) 14 BUN (9 - 20 mg/dL) 30 H Creatinine (0.7 - 1.2 mg/dL) 1.2 Estimated GFR (>60 ml/min) > 60 BUN/Creatinine Ratio (7 - 25 %) 25.0 Hemoglobin A1c (4.2 - 5.8 %) 7.4 H Lactic Acid Cancelled Total Bilirubin (0.2 - 1.3 mg/dL) 0.7 Direct Bilirubin (< 0.4 mg/dL) 0.5 H AST (17 - 59 U/L) 155 H ALT (21 - 72 U/L) 232 H Alkaline Phosphatase (< 127 U/L) 211 H Troponin I (<0.11 ng/ml) 0.05 Total Protein (6.3 - 8.2 g/dL) 6.3 Albumin (3.5 - 5.0 g/dL) 3.2 L Hematology CBC w Diff NO MAN DIFF REQ WBC (4.8 - 10.8 /CUMM) 9.8 RBC (4.70 - 6.10 /CUMM) 3.62 L Hgb (14.0 - 18.0 G/DL) 10.7 L Hct (42 - 52 %) 32.1 L MCV (80.0 - 94.0 FL) 88.8 MCH (27.0 - 31.0 PG) 29.5 MCHC (33.0 - 37.0 G/DL) 33.3 RDW (11.5 - 14.5 %) 14.1 Plt Count (130 - 400 /CUMM) 239 MPV (7.4 - 10.4 FL) 8.8 Gran % (42.2 - 75.2 %) 79.0 H Lymphocytes % (20.5 - 51.1 %) 8.1 L Monocytes % (1.7 - 9.3 %) 11.6 H Eosinophils % (0 - 5 %) 1.1 Basophils % (0.0 - 2.0 %) 0.2 Absolute Granulocytes (1.4 - 6.5 /CUMM) 7.7 H Absolute Lymphocytes (1.2 - 3.4 /CUMM) 0.8 L Absolute Monocytes (0.10 - 0.60 /CUMM) 1.1 H Absolute Eosinophils (0.0 - 0.7 /CUMM) 0.1 Absolute Basophils (0.0 - 0.2 /CUMM) 0 03/28 03/27 03/27 0140 2300 1628 Chemistry Lactic Acid (0.7 - 2.1 mmol/L) 0.8 0.8 Urines Urinalysis LIGHT H Urine Color (YEL,AMB,STR) YEL Urine Clarity (CLEAR) HAZY H Urine pH (5.0 - 8.0) 6.0 Ur Specific [place] (1.001 - 1.035) 1.025 Urine Protein (NEG,<30 MG/DL) 30 H Urine Ketones (NEG) TRACE H Urine Nitrite (NEG) NEG Urine Bilirubin (NEG) NEG Urine Urobilinogen (0.1 - 1.0 EU/dl) 1.0 Ur Leukocyte Esterase (NEG) NEG Ur Microscopic SEDIMENT EXAMINED Urine RBC (0 - 5 /HPF) 3-5 Urine WBC (0 - 2 /HPF) 3-5 H Ur Epithelial Cells (NONE,FEW) FEW Hyaline Casts (0/LPF) RARE H Granular Casts (NONE /LPF) MANY H Urine Hemoglobin (NEG) SMALL H Urine Glucose (N MG/DL) 100 H 03/27 1402 Chemistry Sodium (137 - 145 mmol/L) 136 L Potassium (3.5 - 5.1 mmol/L) 4.2 Chloride (98 - 107 mmol/L) 94 L Carbon Dioxide (22 - 30 mmol/L) 28 Anion Gap (5 - 16) 14 BUN (9 - 20 mg/dL) 40 H Creatinine (0.7 - 1.2 mg/dL) 1.6 H Estimated GFR (>60 ml/min) 43 L BUN/Creatinine Ratio (7 - 25 %) 25.0 Glucose (65 - 99 mg/dL) 320 H Lactic Acid (0.7 - 2.1 mmol/L) 3.4 H Calcium (8.4 - 10.2 mg/dL) 9.4 Total Bilirubin (0.2 - 1.3 mg/dL) 0.7 AST (17 - 59 U/L) 199 H ALT (21 - 72 U/L) 281 H Alkaline Phosphatase (< 127 U/L) 219 H Creatine Kinase (55 - 170 U/L) 302 H Troponin I (<0.11 ng/ml) 0.06 Total Protein (6.3 - 8.2 g/dL) 6.7 Albumin (3.5 - 5.0 g/dL) 3.4 L Globulin (1.9 - 4.2 gm/dL) 3.3 Albumin/Globulin Ratio (1.1 - 2.2 %) 1.0 L Lipase (23 - 300 U/L) 208 Hematology CBC w Diff NO MAN DIFF REQ WBC (4.8 - 10.8 /CUMM) 10.6 RBC (4.70 - 6.10 /CUMM) 3.83 L Hgb (14.0 - 18.0 G/DL) 11.4 L Hct (42 - 52 %) 33.5 L MCV (80.0 - 94.0 FL) 87.7 MCH (27.0 - 31.0 PG) 29.8 MCHC (33.0 - 37.0 G/DL) 34.0 RDW (11.5 - 14.5 %) 14.1 Plt Count (130 - 400 /CUMM) 253 MPV (7.4 - 10.4 FL) 8.1 Gran % (42.2 - 75.2 %) 83.9 H Lymphocytes % (20.5 - 51.1 %) 6.1 L Monocytes % (1.7 - 9.3 %) 9.0 Eosinophils % (0 - 5 %) 0.6 Basophils % (0.0 - 2.0 %) 0.4 Absolute Granulocytes (1.4 - 6.5 /CUMM) 8.9 H Absolute Lymphocytes (1.2 - 3.4 /CUMM) 0.6 L Absolute Monocytes (0.10 - 0.60 /CUMM) 1.0 H Absolute Eosinophils (0.0 - 0.7 /CUMM) 0.1 Absolute Basophils (0.0 - 0.2 /CUMM) 0 Serology Hepatitis A IgM Ab (NONREACTIVE) NONREACTIVE Hep Bs Antigen (NONREACTIVE) NONREACTIVE Hep B Core IgM Ab Conf (NONREACTIVE) NONREACTIVE Hepatitis C Antibody (NONREACTIVE) NONREACTIVE Assessment/Plan Assessment/Plan This 71 year old male with hx t2dm, sana with cpap, bph, hld, chronic back pain, hx tia, hx PE/DVT s/p ivcf, who is now POD#1 s/p laparoscopic cholecystectomy, drainage of subhepatic abscess for acute cholecystitis, ileus may be expected post-op given intra-operative findings and hx t2dm sip of clears as tolerated. nauseous this morning with belching & heartburn decreased iv fluids iv tylenol around the clock / oxycodone prn / iv morphine prn breakthrough pain pepcid iv added - gi ppx hep sc - dvt ppx continue iv unasyn for intra-abdominal infection REKHA drain to bulb suction. monitor drainage oob/ambulation accuchecks / ss coverage as per f/u labs will d/w Core Measures Venous Thromboembolism VTE Risk Factors Acute Medical Illness No Mechanical VTE Prophylaxis d/t N/A MechProphylax Ordered No VTE Pharm Prophylaxis d/t NA PharmProphylax ordered
--- NOTE | 2017-03-29 08:17 | PN- Medicine Consult ---
Vikram Awad 03/29/17 0817: Assessment/PlanMedical Consult Assessment/Plan Assessment: 71 yo morbidly obese M with h/o VINEET on CPAP, TIA, T2DM, CKD, cervical myelopathy s/p laminectomy, previous lumbar surgery with prophylactic IVC filter placement due to high risk for DVT/PE, is admitted to Surgical service for acute gangrenous cholecystitis with a plan for OR on 03/28/2017. Patient presented to the emergency department after being advised by his primary care doctor to come for further evaluation due to a chief complaint of dark urine. He follows Dr. Martino for cardiology and reports undergoing nuclear stress test few years ago that was essentially normal. Patient denies any h/o CAD or IHD, CHF and is not insulin dependent. Vitals: Tmax 100.9, HR 60-90's, BP 122/64, sats 96% RA. Labs: no leukocytosis, Na 136, BUN 40, creat 1.6 (Baseline 1.0-1.4), glucose 320 , lactic acid 3.4 --> 0.8, T. Bili 0.7, AST 199, ALT 281, Alk phos 219, CK 302, trop 0.06, lipase 208, albumin 3.4. UA hazy, proteinuria, trace ketones. CXR and CT head: no acute changes. Abd ultrasound: cholelithiasis, hydrops, stasis with gangrenous cholecystitis. Echo (2016): EF > 55%. EKG: sinus rhythm, PAC's. Problem list: -Acute Gangrenous cholecystitis -Transaminitis with elevated creatine kinase -Lactic acidosis -Type 2 diabetes (A1c 6.6 in Jan 2016) not on insulin -Pseudohyponatremia-corrected sodium 140 -Anemia most likely anemia of chronic disease - VINEET on CPAP - CKD with baseline creatinine < 2.0 PLAN Patient underwent laparoscopic cholecystectomy on 03/29/2017 after cleared by fitness sales consultant. He is status post day 1 after cholecystectomy and drainage of subhepatic abscess. Patient tolerated procedure well. * Pain management as per primary team. * Blood pressure 150/90 this morning. Home medication losartan was on hold because of STEPHANIE. However creatinine is 1 this morning. Please resume home medication losartan for hypertension. * Blood sugars were running high this morning. Dr. rodriguez has been following closely. Please follow-up endocrinology recommendations for blood sugar management. * Patient was found to have postoperative leukocytosis most likely from surgery. Discontinue antibiotics and monitor for fever, leukocytosis. * Continue IV antibiotics * Hold atorvastatin given transaminitis * Continue nocturnal CPAP DVT ppx Hep SC. Full code. Please follow attending recommendations below. Plan: . Subjective Subjective: Patient was seen and examined this morning he is alert awake and oriented to time place and person. No acute events overnight. Status postcholecystectomy day 1. Tolerated procedure well. Patient reports mild abdominal discomfort in the epigastric and right upper quadrant area. Denies any nausea, vomiting, hematemesis, melena, hematochezia. Vitals were stable. Blood sugars Ranging between 180 to 220. Review of Systems Constitutional: Reports: see HPI. Objective Last 24 Hrs of Vital Signs/I&O Vital Signs Date Time Temp Pulse Resp B/P B/P Pulse O2 O2 Flow FiO2 Mean Ox Delivery Rate 03/29 1219 160/80 03/29 1001 98.3 102 20 160/80 94 03/29 0759 150/70 03/29 0643 98.9 92 20 120/80 92 Room Air 03/29 0205 97.9 101 20 150/80 95 CPAP 03/29 0008 101 97 03/29 0000 CPAP 03/28 2144 92 128/78 03/28 2130 98.0 92 18 122/78 98 Nasal 1.0L Cannula 03/28 1645 98.7 90 18 142/78 96 Room Air 03/28 1451 98.6 85 18 140/80 96 Intake & Output 03/29 1600 03/29 0800 03/29 0000 Intake Total 1480 1100 Output Total 200 720 145 Balance -200 760 955 Intake, IV 1000 1000 Intake, Oral 480 100 Output, 20 20 Drainage Output, Urine 200 700 125 Physical Exam Other Physical Findings: General Appearance: alert, comfortable, obese Head: atraumatic Eyes: Bilateral: PERRL, EOMI. Neck: normal inspection Respiratory: normal breath sounds, chest non-tender, lungs clear Cardiovascular: regular rate/rhythm, normal peripheral pulses Gastrointestinal: normal bowel sounds, soft, right upper quadrant tenderness Extremities: normal inspection, no edema Neurologic/Psych: awake, alert, oriented x 3, esl tutor II-XII nml as tested, 3-4 out of 5 lower extremity strength Current Medications: Current Medications Sig/Andrea Start time Last Medication Dose Route Stop Time Status Admin Acetaminophen 1,000 MG Q6H 03/29 0900 AC 03/29 N/A 1 UNIT IV 03/30 0314 1000 Acetaminophen 1,000 MG .STK-MED ONE 03/28 1738 DC IV 03/28 1739 Acetaminophen 650 MG Q6PRN PRN 03/27 2300 DC PO Ampicillin Sodium/ 3,000 MG Q6 03/27 2359 AC 03/29 Sulbactam Sodium IV 0556 Sodium Chloride 100 ML Dextrose/Sodium 1,000 ML .Q10H 03/27 2300 DC 03/29 Chloride IV 0800 Famotidine 20 MG BID 03/29 1000 AC 03/29 IV 1001 Fentanyl Citrate 250 MCG .STK-MED ONE 03/28 1737 DC IM 03/28 1738 Finasteride 5 MG DAILY 03/28 1000 AC 03/29 PO 0759 Heparin Sodium 5,000 UNIT Q8 03/28 0600 AC 03/29 (Porcine) SC 0556 Hydromorphone HCl 2 MG .STK-MED ONE 03/28 1739 DC IM 03/28 1740 Insulin Aspart 0 AC & AT BEDTIME 03/29 1200 AC 03/29 SC 1219 Insulin Aspart 0 Q4 03/28 1400 DC 03/29 SC 1000 Insulin Detemir 12 UNITS DAILY 03/30 1000 AC SC Insulin Detemir 10 UNITS DAILY 03/28 1303 DC 03/29 SC 1001 Insulin Human Regular 0 Q6 03/28 0016 DC 03/28 SC 1150 Losartan Potassium 50 MG DAILY 03/29 1032 AC 03/29 PO 1219 Midazolam HCl 2 MG .STK-MED ONE 03/28 1738 DC IM 03/28 1739 Morphine Sulfate 2 MG Q2P PRN 03/27 2300 AC IV Ondansetron HCl 4 MG Q6-PRN PRN 03/27 2300 AC 03/29 IV 0739 Oxycodone HCl 5 MG Q4-6 PRN PRN 03/29 0815 AC PO Oxycodone HCl 10 MG Q4-6 PRN PRN 03/29 0815 AC PO Oxycodone/ 1 TAB Q6P PRN 03/28 2200 DC 03/29 Acetaminophen PO 0616 Oxycodone/ 2 TAB Q6P PRN 03/28 2200 DC Acetaminophen PO Patient Medication 1 ED ONE ONE 03/29 1115 DC 03/29 Teaching ED 03/29 1116 1220 Tamsulosin HCl 0.4 MG BID 03/28 1000 AC 03/29 PO 0759 Results Last 24 Hrs Lab/Jesus Results: Laboratory Tests 03/29/17 0720: Anion Gap 14, Estimated GFR > 60, BUN/Creatinine Ratio 15.5, Total Bilirubin 0.7 , Direct Bilirubin 0.4, AST 120 H, ALT 202 H, Alkaline Phosphatase 196 H, Total Protein 6.2 L, Albumin 2.9 L, CBC w Diff NO MAN DIFF REQ, RBC 3.63 L, MCV 87.8, MCH 29.9, MCHC 34.0, RDW 13.8, MPV 8.8, Gran % 92.5 H, Lymphocytes % 2.6 L, Monocytes % 4.8, Eosinophils % 0, Basophils % 0.1, Absolute Granulocytes 17.4 H, Absolute Lymphocytes 0.5 L, Absolute Monocytes 0.9 H, Absolute Eosinophils 0, Absolute Basophils 0 03/28/17 1441: PT 14.1 H, INR 1.35 H Microbiology 03/28 1999 GI FROM OR: Culture & Sensitivity - RES GRAM NEGATIVE RODS 03/28 1999 GI FROM OR: Gram Stain - RES Jose Alejandro ABREU,[facility] 03/29/17 1133: Attending MD Review Statement Attending Sign Off Attending Cosign Statement: I have: examined this patient, reviewed [employer] EMR data, personally reviewd images, discussd w/resident/PA/LIDAR ANALYST, discussed mgmt plan w/leonarda, discussed mgmt plan w/pt, agreed w/resident/PA/LIDAR ANALYST, amended to note. Other Findings: Patient seen and examined, feels overall better. C/O abd pain but tolerable with pain meds. S/P Laparoscopic cholecystectomy, Drainage of subhepatic abscess POD #1 today. Vital Signs Date Time Temp Pulse Resp B/P B/P Pulse O2 O2 Flow FiO2 Mean Ox Delivery Rate 03/29 1001 98.3 102 20 160/80 94 03/29 0759 150/70 03/29 0643 98.9 92 20 120/80 92 Room Air 03/29 0205 97.9 101 20 150/80 95 CPAP 03/29 0008 101 97 03/29 0000 CPAP 03/28 2144 92 128/78 03/28 2130 98.0 92 18 122/78 98 Nasal 1.0L Cannula 03/28 1645 98.7 90 18 142/78 96 Room Air 03/28 1451 98.6 85 18 140/80 96 on exam: aox3, nad. cv; s1,s2, rrr resp; clear abd; soft, tender at the site of surgery, bs+, still has drain in. ext; no edema. Laboratory Tests 03/29 03/28 0720 1441 Chemistry Sodium (137 - 145 mmol/L) 141 Potassium (3.5 - 5.1 mmol/L) 3.7 Chloride (98 - 107 mmol/L) 99 Carbon Dioxide (22 - 30 mmol/L) 29 Anion Gap (5 - 16) 14 BUN (9 - 20 mg/dL) 17 Creatinine (0.7 - 1.2 mg/dL) 1.1 Estimated GFR (>60 ml/min) > 60 BUN/Creatinine Ratio (7 - 25 %) 15.5 Total Bilirubin (0.2 - 1.3 mg/dL) 0.7 Direct Bilirubin (< 0.4 mg/dL) 0.4 AST (17 - 59 U/L) 120 H ALT (21 - 72 U/L) 202 H Alkaline Phosphatase (< 127 U/L) 196 H Total Protein (6.3 - 8.2 g/dL) 6.2 L Albumin (3.5 - 5.0 g/dL) 2.9 L Coagulation PT (9.4 - 12.5 SEC) 14.1 H INR (0.90 - 1.17) 1.35 H Hematology CBC w Diff NO MAN DIFF REQ WBC (4.8 - 10.8 /CUMM) 18.9 H RBC (4.70 - 6.10 /CUMM) 3.63 L Hgb (14.0 - 18.0 G/DL) 10.9 L Hct (42 - 52 %) 31.9 L MCV (80.0 - 94.0 FL) 87.8 MCH (27.0 - 31.0 PG) 29.9 MCHC (33.0 - 37.0 G/DL) 34.0 RDW (11.5 - 14.5 %) 13.8 Plt Count (130 - 400 /CUMM) 291 MPV (7.4 - 10.4 FL) 8.8 Gran % (42.2 - 75.2 %) 92.5 H Lymphocytes % (20.5 - 51.1 %) 2.6 L Monocytes % (1.7 - 9.3 %) 4.8 Eosinophils % (0 - 5 %) 0 Basophils % (0.0 - 2.0 %) 0.1 Absolute Granulocytes (1.4 - 6.5 /CUMM) 17.4 H Absolute Lymphocytes (1.2 - 3.4 /CUMM) 0.5 L Absolute Monocytes (0.10 - 0.60 /CUMM) 0.9 H Absolute Eosinophils (0.0 - 0.7 /CUMM) 0 Absolute Basophils (0.0 - 0.2 /CUMM) 0 Assessemnt and recommendations. 71 y/o M with pmh sig for VINEET on CPAP, TIA, T2DM, CKD, cervical myelopathy s/p laminectomy, previous lumbar surgery with prophylactic IVC filter placement due to high risk for DVT/PE, is admitted to Surgical service for acute gangrenous cholecystitis, S/P Laparoscopic cholecystectomy, Drainage of subhepatic abscess POD #1 today. Blood pressure is running high. We will resume patient's home medication losartan. Noted leukocytosis. Likely secondary to postoperative stress. Continue the antibiotics. Monitor the white count. Blood sugar was high this morning. Patient is followed by endocrinology. Continue insulin sliding scale and Levemir as recommended by endocrinology. Please follow their further recommendations. Continue the rest of the medications. Encourage ambulation and incentive spirometry. DVT prophylaxis: Heparin subcutaneous. Thank you will follow along with you.
[2017-03-29 08:22] LABS: ABSOLUTE GRANULOCYTE CT 17.4 /CUMM (1.4-6.5); MEAN PLATELET VOLUME 8.8 FL (7.4-10.4); PLATELET COUNT 291 /CUMM (130-400); RBC DISTRIBUTION WIDTH 13.8 % (11.5-14.5); RED BLOOD CELL CT 3.63 /CUMM (4.70-6.10)
[2017-03-29 08:39] LABS: WHITE BLOOD CELL COUNT 18.9 /CUMM (4.8-10.8)
[2017-03-29 09:28] LABS: GRANULOCYTE % 92.5 % (42.2-75.2)
[2017-03-29 10:01] VITALS: BP 160/80
--- NOTE | 2017-03-29 11:46 | PN- Diabetes ---
Assessment/Plan Diabetes Assessment: 71 y/o male with hx of diabetes2, obstructive sleep apnea with CPAP at night, BPH, hyperlipidemia, and chronic back pain status post 3 cervical procedures and 1 lumbar procedure, DVT and PE postoperatively following spine surgery in 2011, s/p IVC filter in place, status post TIA in 2015, was admitted for gangrenous cholecystitis. He underwent cholecystectomy on 03/28/2017. He was on D5 1/2 NS at 125 ml /hour which was discontinued. He will be on consistent carbohydrates 2 diet for lunch. He was on Levemir 10 units daily, Novolog coverage every 4 hours. His FSGs were 210, 197 and 221. Plan: 1. increase Levemir to 12 units daily; 2. stop Nivolog coverage every 4 hours; 3. start Novolog coverage before meals and Novolog coverage at bedtime; detail see the inpatient DM orders; 4. monitor FSGs. will follow. Inpatient Diabetes Orders Before Each Meal: Bolus Insulin: Novolog < 80 mg/dl: no coverage 80-100 mg/dl: no coverage 101-120 mg/dl: 4 units 121-150 mg/dl: 4 units 151-200 mg/dl: 6 units 201-250 mg/dl: 8 units 251-300 mg/dl: 10 units 301-350 mg/dl: 12 units 351-400 mg/dl: 14 units > 400 mg/dl: 16 units Bedtime: Bolus Insulin: Novolog < 80 mg/dl: no coverage 80-100 mg/dl: no coverage 101-120 mg/dl: no coverage 121-150 mg/dl: no coverage 151-200 mg/dl: no coverage 201-250 mg/dl: 2 units 251-300 mg/dl: 3 units 301-350 mg/dl: 4 units 351-400 mg/dl: 5 units > 400 mg/dl: 6 units Subjective Subjective: He stated that he tolerated clear liquid diet well. Objective Last 24 Hrs of Vital Signs/I&O Vital Signs Date Time Temp Pulse Resp B/P B/P Pulse O2 O2 Flow FiO2 Mean Ox Delivery Rate 03/29 1001 98.3 102 20 160/80 94 03/29 0759 150/70 03/29 0643 98.9 92 20 120/80 92 Room Air 03/29 0205 97.9 101 20 150/80 95 CPAP 03/29 0008 101 97 03/29 0000 CPAP 03/28 2144 92 128/78 03/28 2130 98.0 92 18 122/78 98 Nasal 1.0L Cannula 03/28 1645 98.7 90 18 142/78 96 Room Air 03/28 1451 98.6 85 18 140/80 96 Intake & Output 03/29 1600 03/29 0800 03/29 0000 Intake Total 1480 1100 Output Total 200 720 145 Balance -200 760 955 Intake, IV 1000 1000 Intake, Oral 480 100 Output, 20 20 Drainage Output, Urine 200 700 125 Findings Pertinent Lab/Jesus Results: Laboratory Tests 03/29 03/28 0720 1441 Chemistry Sodium (137 - 145 mmol/L) 141 Potassium (3.5 - 5.1 mmol/L) 3.7 Chloride (98 - 107 mmol/L) 99 Carbon Dioxide (22 - 30 mmol/L) 29 Anion Gap (5 - 16) 14 BUN (9 - 20 mg/dL) 17 Creatinine (0.7 - 1.2 mg/dL) 1.1 Estimated GFR (>60 ml/min) > 60 BUN/Creatinine Ratio (7 - 25 %) 15.5 Total Bilirubin (0.2 - 1.3 mg/dL) 0.7 Direct Bilirubin (< 0.4 mg/dL) 0.4 AST (17 - 59 U/L) 120 H ALT (21 - 72 U/L) 202 H Alkaline Phosphatase (< 127 U/L) 196 H Total Protein (6.3 - 8.2 g/dL) 6.2 L Albumin (3.5 - 5.0 g/dL) 2.9 L Coagulation PT (9.4 - 12.5 SEC) 14.1 H INR (0.90 - 1.17) 1.35 H Hematology CBC w Diff NO MAN DIFF REQ WBC (4.8 - 10.8 /CUMM) 18.9 H RBC (4.70 - 6.10 /CUMM) 3.63 L Hgb (14.0 - 18.0 G/DL) 10.9 L Hct (42 - 52 %) 31.9 L MCV (80.0 - 94.0 FL) 87.8 MCH (27.0 - 31.0 PG) 29.9 MCHC (33.0 - 37.0 G/DL) 34.0 RDW (11.5 - 14.5 %) 13.8 Plt Count (130 - 400 /CUMM) 291 MPV (7.4 - 10.4 FL) 8.8 Gran % (42.2 - 75.2 %) 92.5 H Lymphocytes % (20.5 - 51.1 %) 2.6 L Monocytes % (1.7 - 9.3 %) 4.8 Eosinophils % (0 - 5 %) 0 Basophils % (0.0 - 2.0 %) 0.1 Absolute Granulocytes (1.4 - 6.5 /CUMM) 17.4 H Absolute Lymphocytes (1.2 - 3.4 /CUMM) 0.5 L Absolute Monocytes (0.10 - 0.60 /CUMM) 0.9 H Absolute Eosinophils (0.0 - 0.7 /CUMM) 0 Absolute Basophils (0.0 - 0.2 /CUMM) 0
[2017-03-29 13:51] VITALS: BP 132/60
--- NOTE | 2017-03-29 21:26 | PN- Cardiology ---
Subjective Subjective: * Doing well following surgery. No chest discomfort or shortness of breath. * hepatic transaminases and coming down Objective Vital Signs and I&Os Vital Signs Date Time Temp Pulse Resp B/P B/P Pulse O2 O2 Flow FiO2 Mean Ox Delivery Rate 03/29 1351 97.9 100 20 132/60 92 03/29 1219 160/80 03/29 1001 98.3 102 20 160/80 94 03/29 0759 150/70 03/29 0643 98.9 92 20 120/80 92 Room Air 03/29 0205 97.9 101 20 150/80 95 CPAP 03/29 0008 101 97 03/29 0000 CPAP 03/28 2144 92 128/78 03/28 2130 98.0 92 18 122/78 98 Nasal 1.0L Cannula Intake & Output 03/29 1600 03/29 0800 03/29 0000 03/28 1600 03/28 0800 03/28 0000 Intake Total 600 1480 0833 589 9639 Output Total 370 331 897 9423 1225 100 Balance 230 760 955 -200 -225 -100 Intake, IV 1000 4982 479 2547 Intake, Oral 600 480 100 Output, 20 20 20 Drainage Output, Urine 350 218 126 5868 1225 100 Patient 275 lb Weight Weight Reported by Patient Measurement Method Physical Exam: General: WD/obese male in NAD; alert and oriented x 3 HEENT: NC/AT, PERRL, EOMI Neck: no JVD, no carotid bruit Heart: RRR w/o murmur Lungs: clear bilaterally Abdomen: soft, mildly tender with drain, +ve bowel sounds Extremities: no edema Assessment/Plan Assessment/Plan * This patient is mildly active and has never experienced an LA or decompensated heart failure. His blood pressure is under good control and he has a normal EF. He has done well following surgery without any cardiac complications. * In consideration of his elevated hepatic transaminases I would continue to hold his statin but this will likely be able to be restarted in the future. Continue telemetry? No
[2017-03-29 21:44] VITALS: BP 158/80
[2017-03-30 07:19] VITALS: BP 138/80
--- NOTE | 2017-03-30 07:38 | PN- Medicine Consult ---
Vikram Awad 03/30/17 0737: Assessment/PlanMedical Consult Assessment/Plan Assessment: 71 yo morbidly obese M with h/o VINEET on CPAP, TIA, T2DM, CKD, cervical myelopathy s/p laminectomy, previous lumbar surgery with prophylactic IVC filter placement due to high risk for DVT/PE, is admitted to Surgical service for acute gangrenous cholecystitis with a plan for OR on 03/28/2017. Patient presented to the emergency department after being advised by his primary care doctor to come for further evaluation due to a chief complaint of dark urine. He follows Dr. Martino for cardiology and reports undergoing nuclear stress test few years ago that was essentially normal. Patient denies any h/o CAD or IHD, CHF and is not insulin dependent. Vitals: Tmax 100.9, HR 60-90's, BP 122/64, sats 96% RA. Labs: no leukocytosis, Na 136, BUN 40, creat 1.6 (Baseline 1.0-1.4), glucose 320 , lactic acid 3.4 --> 0.8, T. Bili 0.7, AST 199, ALT 281, Alk phos 219, CK 302, trop 0.06, lipase 208, albumin 3.4. UA hazy, proteinuria, trace ketones. CXR and CT head: no acute changes. Abd ultrasound: cholelithiasis, hydrops, stasis with gangrenous cholecystitis. Echo (2016): EF > 55%. EKG: sinus rhythm, PAC's. Problem list: -Acute Gangrenous cholecystitis s/p cholecystectomy and drainage of subhepatic abscess. -Transaminitis with elevated creatine kinase -Lactic acidosis resolved -Type 2 diabetes (A1c 6.6 in Jan 2016) not on insulin -Pseudohyponatremia-corrected sodium 140 -Anemia most likely anemia of chronic disease -VINEET on CPAP -CKD with baseline creatinine < 2.0 PLAN Patient underwent laparoscopic cholecystectomy on 03/28/2017 after cleared by ribbing machine operator. He is status post day2 after cholecystectomy and drainage of subhepatic abscess. Patient tolerated procedure well. * Pain management as per primary team. * Blood pressure under control after starting losartan. * Blood sugars under control. * Please follow-up endocrinology recommendations for blood sugar management. * Patient was found to have postoperative leukocytosis most likely from surgery. * monitor for fever, leukocytosis. * Continue IV antibiotics- unasyn. * OR cultures growing gram-negative rods. Please follow-up cultures and sensitivities * Hold atorvastatin given transaminitis * Continue nocturnal CPAP * Monitor for return of bowel function * GI prophylaxis Protonix * DVT prophylaxis subcutaneous heparin * Out of bed/ambulation DVT ppx Hep SC. Full code. Please follow attending recommendations below. Plan: . Subjective Subjective: Patient was seen and examined this morning. he is alert awake and oriented to time place and person. No acute events overnight. Status postcholecystectomy day 2. Tolerated procedure well. Patient reports mild abdominal discomfort in the epigastric area. Denies any nausea, vomiting, hematemesis, melena, hematochezia. Positive flatulence. No bowel movements so far. Tolerating diet. Vitals were stable except for mild tachycardia overnight ranging between 90-110. Blood sugars Ranging between 130-180. Review of Systems Constitutional: Reports: see HPI. Objective Last 24 Hrs of Vital Signs/I&O Vital Signs Date Time Temp Pulse Resp B/P B/P Pulse O2 O2 Flow FiO2 Mean Ox Delivery Rate 03/30 0832 104 03/30 0831 158/88 03/30 0719 98.1 93 20 138/80 95 Room Air 03/30 0140 88 98 03/29 2304 105 97 03/29 2144 98.5 111 20 158/80 91 03/29 1351 97.9 100 20 132/60 92 03/29 1219 160/80 03/29 1001 98.3 102 20 160/80 94 Intake & Output 03/30 1600 03/30 0800 03/30 0000 Intake Total 630 750 Output Total 560 250 Balance 70 500 Intake, IV 270 150 Intake, Oral 360 600 Output, 10 Drainage Output, Urine 550 250 Physical Exam General Appearance: well developed/nourished, no apparent distress Other Physical Findings: General Appearance: alert, comfortable, obese Head: atraumatic Eyes: Bilateral: PERRL, EOMI. Neck: normal inspection Respiratory: normal breath sounds, chest non-tender, lungs clear Cardiovascular: regular rate/rhythm, normal peripheral pulses Gastrointestinal: normal bowel sounds, soft, right upper quadrant tenderness Extremities: normal inspection, no edema Neurologic/Psych: awake, alert, oriented x 3, crib tender II-XII nml as tested, 3-4 out of 5 lower extremity strength Current Medications: Current Medications Sig/Andrea Start time Last Medication Dose Route Stop Time Status Admin Acetaminophen 1,000 MG Q6H 03/29 0900 DC 03/30 N/A 1 UNIT IV 03/30 0314 0233 Ampicillin Sodium/ 3,000 MG Q6 03/29 1800 AC 03/30 Sulbactam Sodium IV 0519 Sodium Chloride 100 ML Ampicillin Sodium/ 3,000 MG Q6 03/27 2359 DC 03/29 Sulbactam Sodium IV 1323 Sodium Chloride 100 ML Dextrose/Sodium 1,000 ML .Q10H 03/27 2300 DC 03/29 Chloride IV 0800 Famotidine 20 MG BID 03/30 1000 AC 03/30 PO 0840 Famotidine 20 MG BID 03/29 1000 DC 03/29 IV 2120 Finasteride 5 MG DAILY 03/28 1000 AC 03/30 PO 0831 Heparin Sodium 5,000 UNIT Q8 03/28 0600 AC 03/30 (Porcine) SC 0519 Insulin Aspart 0 AC & AT BEDTIME 03/29 1200 AC 03/30 SC 0832 Insulin Aspart 0 Q4 03/28 1400 DC 03/29 SC 1000 Insulin Detemir 12 UNITS DAILY 03/30 1000 AC 03/30 SC 0832 Insulin Detemir 10 UNITS DAILY 03/28 1303 DC 03/29 SC 1001 Losartan Potassium 50 MG DAILY 03/29 1032 AC 03/30 PO 0832 Morphine Sulfate 2 MG Q2P PRN 03/27 2300 AC IV Ondansetron HCl 4 MG Q6-PRN PRN 03/27 2300 AC 03/30 IV 0840 Oxycodone HCl 5 MG Q4-6 PRN PRN 03/29 0815 AC PO Oxycodone HCl 10 MG Q4-6 PRN PRN 03/29 0815 AC PO Patient Medication 1 ED ONE ONE 03/29 1115 DC 03/29 Teaching ED 03/29 1116 1220 Tamsulosin HCl 0.4 MG BID 03/28 1000 AC 03/30 PO 0831 Results Last 24 Hrs Lab/Jesus Results: Laboratory Tests 03/30/17 0737: Sodium Pending, Potassium Pending, Chloride Pending, Carbon Dioxide Pending, Anion Gap Pending, BUN Pending, Creatinine Pending, BUN/Creatinine Ratio Pending , Glucose Pending, Phosphorus Pending, Magnesium Pending, Total Bilirubin Pending, Direct Bilirubin Pending, AST Pending, ALT Pending, Alkaline Phosphatase Pending, Total Protein Pending, Albumin Pending 03/30/17 0725: CBC w Diff Pending, WBC Pending, RBC Pending, Hgb Pending, Hct Pending, MCV Pending, MCH Pending, MCHC Pending, RDW Pending, Plt Count Pending, MPV Pending Jose Alejandro ABREU,Emmy 03/30/17 1306: Attending MD Review Statement Attending Sign Off Attending Cosign Statement: I have: examined this patient, reviewed aval EMR data, personally reviewd images, discussd w/resident/PA/SULFUR BURNER, discussed mgmt plan w/leonarda, discussed mgmt plan w/pt, agreed w/resident/PA/SULFUR BURNER, amended to note. Other Findings: Patient seen and examined, feels better. Could not tolerate solid diet this am. Had thrown up this am. Vital Signs Date Time Temp Pulse Resp B/P B/P Pulse O2 O2 Flow FiO2 Mean Ox Delivery Rate 03/30 0832 104 03/30 0831 158/88 03/30 0719 98.1 93 20 138/80 95 Room Air 03/30 0140 88 98 03/29 2304 105 97 03/29 2144 98.5 111 20 158/80 91 03/29 1351 97.9 100 20 132/60 92 on exam: aox3, nad. cv; s1, s2, rrr resp: clear abd; soft, nt, bs+, + REKHA drain ext; no edema Laboratory Tests 03/30 03/30 0737 0725 Chemistry Sodium (137 - 145 mmol/L) 140 Potassium (3.5 - 5.1 mmol/L) 3.9 Chloride (98 - 107 mmol/L) 98 Carbon Dioxide (22 - 30 mmol/L) 27 Anion Gap (5 - 16) 15 BUN (9 - 20 mg/dL) 18 Creatinine (0.7 - 1.2 mg/dL) 1.2 Estimated GFR (>60 ml/min) > 60 BUN/Creatinine Ratio (7 - 25 %) 15.0 Glucose (65 - 99 mg/dL) 164 H Phosphorus (2.5 - 4.5 mg/dL) 4.0 Magnesium (1.6 - 2.3 mg/dL) 1.2 L Total Bilirubin (0.2 - 1.3 mg/dL) 0.7 Direct Bilirubin (< 0.4 mg/dL) 0.5 H AST (17 - 59 U/L) 95 H ALT (21 - 72 U/L) 171 H Alkaline Phosphatase (< 127 U/L) 190 H Total Protein (6.3 - 8.2 g/dL) 6.4 Albumin (3.5 - 5.0 g/dL) 3.1 L Hematology CBC w Diff NO MAN DIFF REQ WBC (4.8 - 10.8 /CUMM) 21.6 H RBC (4.70 - 6.10 /CUMM) 3.53 L Hgb (14.0 - 18.0 G/DL) 10.6 L Hct (42 - 52 %) 31.1 L MCV (80.0 - 94.0 FL) 88.2 MCH (27.0 - 31.0 PG) 30.0 MCHC (33.0 - 37.0 G/DL) 34.0 RDW (11.5 - 14.5 %) 14.2 Plt Count (130 - 400 /CUMM) 302 MPV (7.4 - 10.4 FL) 8.6 Gran % (42.2 - 75.2 %) 93.0 H Lymphocytes % (20.5 - 51.1 %) 3.2 L Monocytes % (1.7 - 9.3 %) 3.8 Eosinophils % (0 - 5 %) 0 Basophils % (0.0 - 2.0 %) 0 Absolute Granulocytes (1.4 - 6.5 /CUMM) 20.1 H Absolute Lymphocytes (1.2 - 3.4 /CUMM) 0.7 L Absolute Monocytes (0.10 - 0.60 /CUMM) 0.8 H Absolute Eosinophils (0.0 - 0.7 /CUMM) 0 Absolute Basophils (0.0 - 0.2 /CUMM) 0 Assessemnt and recommendations. 71 y/o M with pmh sig for VINEET on CPAP, TIA, T2DM, CKD, cervical myelopathy s/p laminectomy, previous lumbar surgery with prophylactic IVC filter placement due to high risk for DVT/PE, is admitted to Surgical service for acute gangrenous cholecystitis, S/P Laparoscopic cholecystectomy, Drainage of subhepatic abscess POD #2 today. BP better. Patient with slight tachycardia. Could be 2/2 to mild dehydration or pain. BP better. Continue abx per surgery. Diet advancement per surgery. Will monitor the heart rate. Please discuss further with cardiology. Diabetes managed per Endo. DVt px; hep sq. Thank you, will follow along with you.
--- NOTE | 2017-03-30 08:35 | PN- General Surgery ---
Subjective Subjective: A few episodes of nausea overnight, positive belching, positive flatus, no bowel movement. Objective Vital Signs and I&Os Vital Signs Date Time Temp Pulse Resp B/P B/P Pulse O2 O2 Flow FiO2 Mean Ox Delivery Rate 03/30 0719 98.1 93 20 138/80 95 Room Air 03/30 0140 88 98 03/29 2304 105 97 03/29 2144 98.5 111 20 158/80 91 03/29 1351 97.9 100 20 132/60 92 03/29 1219 160/80 03/29 1001 98.3 102 20 160/80 94 Intake & Output 03/30 1600 03/30 0800 03/30 0000 03/29 1600 03/29 0800 03/29 0000 Intake Total 630 497 223 7071 1100 Output Total 560 250 370 720 145 Balance 70 500 230 760 955 Intake, IV 694 579 3218 1000 Intake, Oral 360 600 600 480 100 Output, 10 20 20 20 Drainage Output, Urine 550 250 350 700 125 Physical Exam: Well-developed well-nourished no apparent distress. HEENT: Atraumatic, extraocular motion intact Neck: Supple, no lymphadenopathy Respiratory: No respiratory distress Abdomen: Obese, Moderately distended, tender in the right upper quadrant as expected, mild tympany Positive bowel sounds Drain site dressing clean dry and intact. Drain with minimal serosanguineous drainage Extremities: No edema, no calf pain Neuro: Alert and oriented x3 Psych: Mood affect normal, normal memory normal judgment. Skin: Warm and dry, no rash on exposed skin Results Last 48 Hours of Labs: Laboratory Tests 03/30 03/30 03/29 0737 0725 0720 Chemistry Sodium (137 - 145 mmol/L) Pending 141 Potassium (3.5 - 5.1 mmol/L) Pending 3.7 Chloride (98 - 107 mmol/L) Pending 99 Carbon Dioxide (22 - 30 mmol/L) Pending 29 Anion Gap (5 - 16) Pending 14 BUN (9 - 20 mg/dL) Pending 17 Creatinine (0.7 - 1.2 mg/dL) Pending 1.1 Estimated GFR (>60 ml/min) > 60 BUN/Creatinine Ratio (7 - 25 %) Pending 15.5 Glucose Pending Phosphorus Pending Magnesium Pending Total Bilirubin (0.2 - 1.3 mg/dL) Pending 0.7 Direct Bilirubin (< 0.4 mg/dL) Pending 0.4 AST (17 - 59 U/L) Pending 120 H ALT (21 - 72 U/L) Pending 202 H Alkaline Phosphatase (< 127 U/L) Pending 196 H Total Protein (6.3 - 8.2 g/dL) Pending 6.2 L Albumin (3.5 - 5.0 g/dL) Pending 2.9 L Hematology CBC w Diff Pending NO MAN DIFF REQ WBC (4.8 - 10.8 /CUMM) Pending 18.9 H RBC (4.70 - 6.10 /CUMM) Pending 3.63 L Hgb (14.0 - 18.0 G/DL) Pending 10.9 L Hct (42 - 52 %) Pending 31.9 L MCV (80.0 - 94.0 FL) Pending 87.8 MCH (27.0 - 31.0 PG) Pending 29.9 MCHC (33.0 - 37.0 G/DL) Pending 34.0 RDW (11.5 - 14.5 %) Pending 13.8 Plt Count (130 - 400 /CUMM) Pending 291 MPV (7.4 - 10.4 FL) Pending 8.8 Gran % (42.2 - 75.2 %) 92.5 H Lymphocytes % (20.5 - 51.1 %) 2.6 L Monocytes % (1.7 - 9.3 %) 4.8 Eosinophils % (0 - 5 %) 0 Basophils % (0.0 - 2.0 %) 0.1 Absolute Granulocytes (1.4 - 6.5 /CUMM) 17.4 H Absolute Lymphocytes (1.2 - 3.4 /CUMM) 0.5 L Absolute Monocytes (0.10 - 0.60 /CUMM) 0.9 H Absolute Eosinophils (0.0 - 0.7 /CUMM) 0 Absolute Basophils (0.0 - 0.2 /CUMM) 0 03/28 03/28 1441 1000 Chemistry Lactic Acid Cancelled Coagulation PT (9.4 - 12.5 SEC) 14.1 H INR (0.90 - 1.17) 1.35 H Assessment/Plan Assessment/Plan This 71 year old male with hx t2dm, sana with cpap, bph, hld, chronic back pain, hx tia, hx PE/DVT s/p ivcf, who is now POD#2 s/p laparoscopic cholecystectomy, drainage of subhepatic abscess for acute cholecystitis, Patient was tachycardic overnight, questionable dehydration related, labs pending: LFTs, CBC, electrolytes We will see how he tolerates his diabetic diet this morning. Monitor for return of bowel function IV fluids discontinued yesterday oxycodone prn / iv morphine prn breakthrough pain pepcid - gi ppx (switch to PO) hep sc - dvt ppx continue iv unasyn for intra-abdominal infection, intra op cultures pending: GNR thus far REKHA drain to bulb suction. monitor drainage oob/ambulation accuchecks / ss coverage as per will d/w Core Measures Venous Thromboembolism VTE Risk Factors Acute Medical Illness No Mechanical VTE Prophylaxis d/t N/A MechProphylax Ordered No VTE Pharm Prophylaxis d/t NA PharmProphylax ordered
--- NOTE | 2017-03-30 08:35 | PN- Diabetes ---
Assessment/Plan Diabetes Assessment: 71 y/o male with hx of diabetes2, obstructive sleep apnea with CPAP at night, BPH, hyperlipidemia, and chronic back pain status post 3 cervical procedures and 1 lumbar procedure, DVT and PE postoperatively following spine surgery in 2011, s/p IVC filter in place, status post TIA in 2015, was admitted for gangrenous cholecystitis. He underwent cholecystectomy on 03/28/2017. He was on D5 1/2 NS at 125 ml /hour which was discontinued. He is on consistent carbohydrates 2 diet . He was put on Levemir 12 units daily, Novolog coverage before meals and Novolog coverage at bedtime. His FSGs were n198, 185, 139 and 174. He feels slightly nauseous this morning. Plan: continue the current insulin regimen; hold Novolog meal coverage if he skips meal; monitor FSGs. will follow. Subjective Subjective: He feels nauseous this morning. Objective Last 24 Hrs of Vital Signs/I&O Vital Signs Date Time Temp Pulse Resp B/P B/P Pulse O2 O2 Flow FiO2 Mean Ox Delivery Rate 03/30 0719 98.1 93 20 138/80 95 Room Air 03/30 0140 88 98 03/29 2304 105 97 03/29 2144 98.5 111 20 158/80 91 03/29 1351 97.9 100 20 132/60 92 03/29 1219 160/80 03/29 1001 98.3 102 20 160/80 94 Intake & Output 03/30 1600 03/30 0800 03/30 0000 Intake Total 630 750 Output Total 560 250 Balance 70 500 Intake, IV 270 150 Intake, Oral 360 600 Output, 10 Drainage Output, Urine 550 250 Findings Pertinent Lab/Jesus Results: Laboratory Tests 03/30 03/30 0737 0725 Chemistry Sodium Pending Potassium Pending Chloride Pending Carbon Dioxide Pending Anion Gap Pending BUN Pending Creatinine Pending BUN/Creatinine Ratio Pending Glucose Pending Phosphorus Pending Magnesium Pending Total Bilirubin Pending Direct Bilirubin Pending AST Pending ALT Pending Alkaline Phosphatase Pending Total Protein Pending Albumin Pending Hematology CBC w Diff Pending WBC Pending RBC Pending Hgb Pending Hct Pending MCV Pending MCH Pending MCHC Pending RDW Pending Plt Count Pending MPV Pending
[2017-03-30 08:39] LABS: ABSOLUTE BASOPHIL COUNT 0 /CUMM (0.0-0.2); ABSOLUTE EOSINOPHIL COUNT 0 /CUMM (0.0-0.7); ABSOLUTE GRANULOCYTE CT 20.1 /CUMM (1.4-6.5); ABSOLUTE LYMPH COUNT 0.7 /CUMM (1.2-3.4); ABSOLUTE MONOCYTE COUNT 0.8 /CUMM (0.10-0.60); BASOPHIL % 0 % (0.0-2.0); EOSINOPHIL % 0 % (0-5); HEMATOCRIT 31.1 % (42-52); MEAN CORPUSCULAR VOLUME 88.2 FL (80.0-94.0); MEAN PLATELET VOLUME 8.6 FL (7.4-10.4); PLATELET COUNT 302 /CUMM (130-400); RBC DISTRIBUTION WIDTH 14.2 % (11.5-14.5); RED BLOOD CELL CT 3.53 /CUMM (4.70-6.10); WHITE BLOOD CELL COUNT 21.6 /CUMM (4.8-10.8)
[2017-03-30 14:15] VITALS: BP 122/80
--- NOTE | 2017-03-30 15:37 | Surgical Discharge Summary ---
Visit Information Visit Dates Admission Date: 03/29/17 Discharge Date: 04/01/17 History of Present Illness Chief Complaint: Abdominal pain Medical History Blood Transfusion Hx: Yes Neurological: TIA (2016) Cardiovascular: hypertension, hyperlipidemia Respiratory: obstructive sleep apnea (nocturnal cpap) Renal: benign prost hyperplasia Musculoskeletal: spinal stenosis, sp ACDFx2, PCD, lum lami Endocrine: diabetes Blood Disorders: DVT, PE, IVC placed 2012 for postop dvt/pe Cancer(s): NONE History of MRSA: No History of VRE: No History of CDIFF: No Isolation History: Standard Pneumonia Vaccine: 07/30/10 Surgical History Pertinent Surgical History: IVC filter 2012 post cerv decomp 2012 lumbar lami 2011 ACDF 2010 Psychosocial History Where Do You Live? Home Who Do You Live With? Spouse Services at Home: None What is Your Primary Language? Indonesian ETOH Use: occasional use Review of Systems: refer to HPI/hospital course Hospital Course Course Attending Physician: Kendall ABREU,Kevin Gates Primary Care Physician: Orlando Bangura MD Hospital Course: Patient was admitted to the emergency department with cholecystitis and subhepatic abscess which required laparoscopic drainage and cholecystectomy which went without complications. A REKHA drain was left in place. Patient was placed on antibiotics intravenously. His diet was advanced as tolerated, his pain was better controlled. His labs were followed, he was noted to have hypomagnesemia which was corrected via IV supplementation. He has been seen by cardiology, endocrinology, hospitalist/internal medicine. He initially had a leukocytosis which later improved when he was switched from Unasyn to Rocephin IV for his infection. He is now stable for discharge home with outpatient follow-up Complications: None Allergies: Coded Allergies: NO KNOWN ALLERGIES (07/28/10) Disposition Summary Disposition Principal Diagnosis: Acute cholecystitis, subhepatic abscess Additional Diagnosis: Status post laparoscopic cholecystectomy and drainage of subhepatic abscess Discharge Disposition: home or self care Discharge Instructions General Discharge Information Code Status: Full Code Patient's Diet: Regular, low-fat Patient's Activity: As tolerated, no lifting greater than 10 pounds Follow-Up Instructions/Appts: Follow-up as outpatient in 10-14 days Band-Aids to incision sites Pain medication as needed Antibiotics as directed Medications at Discharge Discharge Medications: Stop taking the following medications: Oxycodone HCl/Acetaminophen (Oxycodone-Acetaminophen 5-325) 1 EACH TABLET ORAL THREE TIMES A DAY NEEDED Qty = 30 Naproxen Sodium (Naproxen Sodium) 550 MG TABLET ORAL TWICE DAILY Tramadol HCl (Tramadol HCl) 50 MG TABLET ORAL TWICE DAILY Tramadol HCl (Tramadol HCl) 50 MG TABLET ORAL DAILY Continue taking these medications: Metformin HCl (Metformin HCl) 850 MG TABLET 1 Tablet ORAL TWICE DAILY Qty = 60 Comments: NOT GIVEN IN HOSPITAL Liraglutide (Victoza 3-Dimitris) 0.6 MG/0.1 ML PEN.INJCTR 1.8 Microgram Inject into fatty tissue DAILY Qty = 27 Comments: NOT GIVEN IN HOSPITAL Pioglitazone HCl (Pioglitazone HCl) 15 MG TABLET 1 Tablet ORAL DAILY Qty = 90 Comments: NOT GIVEN IN HOSPITAL Finasteride (Finasteride) 5 MG TABLET 1 Tablet ORAL DAILY Qty = 90 Comments: Last Taken:05/30/15 Time:9 AM Losartan Potassium (Losartan Potassium) 100 MG TABLET 0.5 Tablet ORAL DAILY Qty = 90 Comments: NOT GIVEN IN HOSPITAL Vit D3 & K/Berberine HCl/Hops (Ostera Tablet) 1 EACH TABLET 1 Tablet ORAL TWICE DAILY Comments: NOT GIVEN IN HOSPITAL Tamsulosin HCl (Tamsulosin HCl) 0.4 MG CAP.ER.24H 1 Capsule ORAL DAILY Qty = 90 Instructions: DAILY AT BEDTIME Comments: Last Taken:05/30/15 Time:9 AM Atorvastatin Calcium (Atorvastatin Calcium) 80 MG TABLET 1 Tablet ORAL 5 PM Qty = 30 Comments: Last Taken:05/29/15 Time:8 PM Aspirin (Aspirin*) 81 MG TAB.CHEW 1 Tablet ORAL DAILY Qty = 30 Comments: Last Taken:05/30/15 Time:9 AM Tamsulosin HCl (Flomax) 0.4 MG CAP.ER.24H 0.4 Milligram ORAL TWICE DAILY Vit D3 & K/Berberine HCl/Hops (Ostera Tablet) 500 UNIT-500 MCG-90 MG-370 MG TABLET Unknown Dose ORAL TWICE DAILY Glipizide (Glipizide ER) 2.5 MG TAB.ER.24 2.5 Milligram ORAL DAILY Qty = 30 0.9 % Sodium Chloride (Safe Wash) 0.9 % SOLUTION 0.4 Milligram ORAL DAILY
[2017-03-31 06:51] VITALS: BP 138/64
--- NOTE | 2017-03-31 07:39 | PN- General Surgery ---
See Addendum Subjective Subjective: POD# 3 S/P LAP LACHELLE NO MAJOR ISSUES OVERNIGHT DENIES CP, SOB, SMOR NAUSEA WITH CARB 2 DIET ALSO HAS AUDIBLE COUGH AT BEDSIDE WORSENING LEUKOCYTOSIS ANTIBIOTICS CHANGED YESTERDAY WITH CX REPORT MINIMAL AMBLATION WITH NURSING STAFF Objective Vital Signs and I&Os Vital Signs Date Time Temp Pulse Resp B/P B/P Pulse O2 O2 Flow FiO2 Mean Ox Delivery Rate 03/31 0651 98.0 82 20 138/64 93 Room Air 03/31 0519 84 94 03/31 0233 82 94 03/31 0000 CPAP 03/30 2137 94 03/30 2103 76 126/78 03/30 1415 98.4 66 20 122/80 91 03/30 0832 104 03/30 0831 158/88 Intake & Output 03/31 0800 03/31 0000 03/30 1600 03/30 0800 03/30 0000 03/29 1600 Intake Total 0 800 250 630 750 600 Output Total 125 480 700 560 250 370 Balance -125 320 -450 70 500 230 Intake, IV 0 270 150 Intake, Oral 0 800 250 360 600 600 Number 0 0 Bowel Movements Output, 10 20 Drainage Output, Urine 125 480 700 550 250 350 Physical Exam: CV: RRR LUNGS: DIMINISHED BS IN BASES BILAT GOOD AIR MOVEMET ABD: MINIMAL PAIN TO PALP DRSGS DRY REKHA- MINIMAL SEROUS DRAINAGE EXT: WARM, NO CALF TENDERNESS BILAT Assessment/Plan Assessment/Plan RISING LEUKOCYTOSIS NO URINARY COMPLAINTS HAS A COUGH ANTIBIOTICS CHANGED YESTERDAY PLAN F/U AM LABS PT TO AMBULATE TODAY ?D/C DRAIN WILL D/W ATTENDING Core Measures Venous Thromboembolism VTE Risk Factors Acute Medical Illness No Mechanical VTE Prophylaxis d/t N/A MechProphylax Ordered No VTE Pharm Prophylaxis d/t NA PharmProphylax ordered
--- NOTE | 2017-03-31 07:54 | PN- Medicine Consult ---
Vikram Awad 03/31/17 0754: Assessment/PlanMedical Consult Assessment/Plan Assessment: 71 yo morbidly obese M with h/o VINEET on CPAP, TIA, T2DM, CKD, cervical myelopathy s/p laminectomy, previous lumbar surgery with prophylactic IVC filter placement due to high risk for DVT/PE, is admitted to Surgical service for acute gangrenous cholecystitis with a plan for OR on 03/28/2017. Patient presented to the emergency department after being advised by his primary care doctor to come for further evaluation due to a chief complaint of dark urine. He follows Dr. Martino for cardiology and reports undergoing nuclear stress test few years ago that was essentially normal. Patient denies any h/o CAD or IHD, CHF and is not insulin dependent. Vitals: Tmax 100.9, HR 60-90's, BP 122/64, sats 96% RA. Labs: no leukocytosis, Na 136, BUN 40, creat 1.6 (Baseline 1.0-1.4), glucose 320 , lactic acid 3.4 --> 0.8, T. Bili 0.7, AST 199, ALT 281, Alk phos 219, CK 302, trop 0.06, lipase 208, albumin 3.4. UA hazy, proteinuria, trace ketones. CXR and CT head: no acute changes. Abd ultrasound: cholelithiasis, hydrops, stasis with gangrenous cholecystitis. Echo (2016): EF > 55%. EKG: sinus rhythm, PAC's. Problem list: -Acute Gangrenous cholecystitis s/p cholecystectomy and drainage of subhepatic abscess. -Transaminitis with elevated creatine kinase -Lactic acidosis resolved -Type 2 diabetes (A1c 6.6 in Jan 2016) not on insulin -Pseudohyponatremia-corrected sodium 140 -Anemia most likely anemia of chronic disease -VINEET on CPAP -CKD with baseline creatinine < 2.0 PLAN Patient underwent laparoscopic cholecystectomy on 03/28/2017 after cleared by netsuite developer. He is status post day3 after cholecystectomy and drainage of subhepatic abscess. Patient tolerated procedure well. * Pain management as per primary team. * Blood pressure under control after starting losartan. * Blood sugars under control. * Please follow-up endocrinology recommendations for blood sugar management. * Patient was found to have postoperative leukocytosis-please repeat urine analysis, urine culture, blood cultures * monitor for fever, leukocytosis. * Continue IV antibiotics-ceftriaxone * OR cultures growing gram-negative rods/Klebsiella. * Hold atorvastatin given transaminitis * Continue nocturnal CPAP * Please replete magnesium * Monitor for return of bowel function * GI prophylaxis Protonix * DVT prophylaxis subcutaneous heparin * Out of bed/ambulation DVT ppx Hep SC. Full code. Please follow attending recommendations below. Plan: . Subjective Subjective: Patient was seen and examined this morning. he is alert awake and oriented to time place and person. No acute events overnight. Status postcholecystectomy day3. Tolerated procedure well. Patient reports mild abdominal discomfort in the epigastric area. Denies any nausea, vomiting, hematemesis, melena, hematochezia. Positive flatulence. No bowel movements so far. Tolerating diet. Vitals were stable. Blood sugars Ranging between 150-250 Review of Systems Constitutional: Reports: see HPI. Objective Last 24 Hrs of Vital Signs/I&O Vital Signs Date Time Temp Pulse Resp B/P B/P Pulse O2 O2 Flow FiO2 Mean Ox Delivery Rate 03/31 0840 140/70 03/31 0840 140/70 03/31 0651 98.0 82 20 138/64 93 Room Air 03/31 0519 84 94 03/31 0233 82 94 03/31 0000 CPAP 03/30 2137 94 03/30 2103 76 126/78 03/30 1415 98.4 66 20 122/80 91 Intake & Output 03/31 1600 03/31 0800 03/31 0000 Intake Total 0 800 Output Total 125 480 Balance -125 320 Intake, IV 0 Intake, Oral 0 800 Number 0 0 Bowel Movements Output, Urine 125 480 Physical Exam Other Physical Findings: General Appearance: alert, comfortable, obese Head: atraumatic Eyes: Bilateral: PERRL, EOMI. Neck: normal inspection Respiratory: normal breath sounds, chest non-tender, lungs clear Cardiovascular: regular rate/rhythm, normal peripheral pulses Gastrointestinal: normal bowel sounds, soft, right upper quadrant tenderness, REKHA drain in place Extremities: normal inspection, no edema Current Medications: Current Medications Sig/Andrea Start time Last Medication Dose Route Stop Time Status Admin Ampicillin Sodium/ 3,000 MG Q6 03/29 1800 DC 03/30 Sulbactam Sodium IV 1144 Sodium Chloride 100 ML Ceftriaxone Sodium 1,000 MG Q24H 03/30 1400 AC 03/30 IV 1536 Docusate Sodium 100 MG BID 03/30 2200 AC 03/31 PO 0840 Famotidine 20 MG BID 03/30 1000 AC 03/31 PO 0840 Finasteride 5 MG DAILY 03/28 1000 AC 03/31 PO 0841 Heparin Sodium 5,000 UNIT Q8 03/28 0600 AC 03/31 (Porcine) SC 0638 Insulin Aspart 0 AC & AT BEDTIME 03/29 1200 AC 03/31 SC 0841 Insulin Detemir 12 UNITS DAILY 03/30 1000 AC 03/31 SC 0841 Losartan Potassium 50 MG DAILY 03/29 1032 AC 03/31 PO 0840 Magnesium Sulfate 1 GM ONCE ONE 03/31 0930 AC Dextrose/Water 100 ML IV 03/31 1329 Magnesium Sulfate 1 GM Q2H 03/30 1145 DC 03/30 Dextrose/Water 100 ML IV 03/30 1544 1537 Morphine Sulfate 2 MG Q2P PRN 03/27 2300 AC IV Ondansetron HCl 4 MG Q6-PRN PRN 03/27 2300 AC 03/30 IV 0840 Oxycodone HCl 5 MG Q4-6 PRN PRN 03/29 0815 PO Oxycodone HCl 10 MG Q4-6 PRN PRN 03/29 0815 PO Patient Medication 1 ED ONE ONE 03/30 1200 DC 03/30 Teaching ED 03/30 1201 1344 Tamsulosin HCl 0.4 MG BID 03/28 1000 AC 03/31 PO 0840 Results Last 24 Hrs Lab/Jesus Results: Laboratory Tests 03/31/17 0748: Anion Gap 13, Estimated GFR 55 L, BUN/Creatinine Ratio 16.2, Magnesium 1.5 L, CBC w Diff NO MAN DIFF REQ, RBC 3.30 L, MCV 89.1, MCH 29.7, MCHC 33.4, RDW 14.4 , MPV 8.5, Gran % 89.5 H, Lymphocytes % 6.2 L, Monocytes % 3.6, Eosinophils % 0.6, Basophils % 0.1, Absolute Granulocytes 13.8 H, Absolute Lymphocytes 1.0 L , Absolute Monocytes 0.6, Absolute Eosinophils 0.1, Absolute Basophils 0 Jose Alejandro ABREU,Emmy 03/31/17 1251: Attending MD Review Statement Attending Sign Off Attending Cosign Statement: I have: examined this patient, reviewed avalbl EMR data, personally reviewd images, discussd w/resident/PA/RESIDENCE LEASING AGENT, discussed mgmt plan w/leonarda, discussed mgmt plan w/pt, agreed w/resident/PA/RESIDENCE LEASING AGENT, amended to note. Other Findings: Patient seen and examined, feeling better. Patient did have pretty significant leukocytosis yesterday but seems to be improving today. His creatinine is slightly up. Heart rate is better. Blood pressure is stable. OR culture growing Klebsiella. Vital Signs Date Time Temp Pulse Resp B/P B/P Pulse O2 O2 Flow FiO2 Mean Ox Delivery Rate 03/31 0840 140/70 03/31 0840 140/70 03/31 0651 98.0 82 20 138/64 93 Room Air 03/31 0519 84 94 03/31 0233 82 94 03/31 0000 CPAP 03/30 2137 94 03/30 2103 76 126/78 03/30 1415 98.4 66 20 122/80 91 on exam; aox3, nad. cv; s1, s2, rrr resp; clear abd; soft, bs+, slightly tender at the surgical site. ext; no edema. Laboratory Tests 03/31 0748 Chemistry Sodium (137 - 145 mmol/L) 141 Potassium (3.5 - 5.1 mmol/L) 4.4 Chloride (98 - 107 mmol/L) 97 L Carbon Dioxide (22 - 30 mmol/L) 31 H Anion Gap (5 - 16) 13 BUN (9 - 20 mg/dL) 21 H Creatinine (0.7 - 1.2 mg/dL) 1.3 H Estimated GFR (>60 ml/min) 55 L BUN/Creatinine Ratio (7 - 25 %) 16.2 Magnesium (1.6 - 2.3 mg/dL) 1.5 L Hematology CBC w Diff NO MAN DIFF REQ WBC (4.8 - 10.8 /CUMM) 15.4 H RBC (4.70 - 6.10 /CUMM) 3.30 L Hgb (14.0 - 18.0 G/DL) 9.8 L Hct (42 - 52 %) 29.4 L MCV (80.0 - 94.0 FL) 89.1 MCH (27.0 - 31.0 PG) 29.7 MCHC (33.0 - 37.0 G/DL) 33.4 RDW (11.5 - 14.5 %) 14.4 Plt Count (130 - 400 /CUMM) 323 MPV (7.4 - 10.4 FL) 8.5 Gran % (42.2 - 75.2 %) 89.5 H Lymphocytes % (20.5 - 51.1 %) 6.2 L Monocytes % (1.7 - 9.3 %) 3.6 Eosinophils % (0 - 5 %) 0.6 Basophils % (0.0 - 2.0 %) 0.1 Absolute Granulocytes (1.4 - 6.5 /CUMM) 13.8 H Absolute Lymphocytes (1.2 - 3.4 /CUMM) 1.0 L Absolute Monocytes (0.10 - 0.60 /CUMM) 0.6 Absolute Eosinophils (0.0 - 0.7 /CUMM) 0.1 Absolute Basophils (0.0 - 0.2 /CUMM) 0 Assessment and recommendations: 71 y/o M with pmh sig for VINEET on CPAP, TIA, T2DM, CKD, cervical myelopathy s/p laminectomy, previous lumbar surgery with prophylactic IVC filter placement due to high risk for DVT/PE, is admitted to Surgical service for acute gangrenous cholecystitis, S/P Laparoscopic cholecystectomy, Drainage of subhepatic abscess POD #3 today. Operating room culture growing Klebsiella. Antiemetics have been switched to ceftriaxone per surgery. We will defer antibiotics to surgery. Blood pressure remained stable. Heart rate is better. Patient does have slightly increased creatinine today. Would recommend gentle IV hydration. Diet has been advanced per surgery. Leukocytosis is improving. DVT prophylaxis: Heparin and will follow along with you
--- NOTE | 2017-03-31 08:26 | RADIOLOGY REPORT ---
EXAMINATION: XR PORTABLE CHEST CLINICAL INFORMATION: Lung sounds no longer clear. Leukocytosis. Assess for pneumonia versus atelectasis. COMPARISON: Chest x-ray 03/27/2017. TECHNIQUE: Portable AP 80 degrees semierect view of the chest was obtained. FINDINGS: The lung woods are moderately well-expanded bilaterally. There are opacities in the right lower zone medially and at the left base laterally, most consistent with atelectasis. The cardiac silhouette is normal. The aortic arch is unfolded. The central pulmonary vasculature appears normal. There are no pleural effusions. There are no acute osseous findings. The cervical ACDF plate is not included on the available image. IMPRESSION: 1. Opacities at the bases bilaterally may be consistent with atelectasis.
[2017-03-31 09:03] LABS: ABSOLUTE BASOPHIL COUNT 0 /CUMM (0.0-0.2); ABSOLUTE EOSINOPHIL COUNT 0.1 /CUMM (0.0-0.7); ABSOLUTE GRANULOCYTE CT 13.8 /CUMM (1.4-6.5); ABSOLUTE MONOCYTE COUNT 0.6 /CUMM (0.10-0.60); BASOPHIL % 0.1 % (0.0-2.0); EOSINOPHIL % 0.6 % (0-5); HEMATOCRIT 29.4 % (42-52); MEAN CORPUSCULAR HGB 29.7 PG (27.0-31.0); MEAN CORPUSCULAR HGB CONC 33.4 G/DL (33.0-37.0); MEAN CORPUSCULAR VOLUME 89.1 FL (80.0-94.0); MEAN PLATELET VOLUME 8.5 FL (7.4-10.4); PLATELET COUNT 323 /CUMM (130-400); RBC DISTRIBUTION WIDTH 14.4 % (11.5-14.5); WHITE BLOOD CELL COUNT 15.4 /CUMM (4.8-10.8)
[2017-03-31 09:39] LABS: GRANULOCYTE % 89.5 % (42.2-75.2)
--- NOTE | 2017-03-31 10:52 | PN- Diabetes ---
Assessment/Plan Diabetes Assessment: 71 y/o male with hx of diabetes2, obstructive sleep apnea with CPAP at night, BPH, hyperlipidemia, and chronic back pain status post 3 cervical procedures and 1 lumbar procedure, DVT and PE postoperatively following spine surgery in 2011, s/p IVC filter in place, status post TIA in 2015, was admitted for gangrenous cholecystitis. He underwent cholecystectomy on 03/28/2017. He was on D5 1/2 NS at 125 ml /hour which was discontinued. He is on consistent carbohydrates 2 diet . He was put on Levemir 12 units daily, Novolog coverage before meals and Novolog coverage at bedtime. His FSGs were 174, 250, 266, 203 and 155. He feels better. Plan: continue the current insulin regimen for now; monitor FSGs. If he is medically stable for discharge, the discharge plan for DM will be the same DM regimen prior to admission. No insulin---Glipizide ER 2.5 mg daily, metformin 850 mg twice a day and pioglitazone 15 mg daily. f/u in office with Dr. Bangura in office after discharge. Subjective Subjective: He feels better. Objective Last 24 Hrs of Vital Signs/I&O Vital Signs Date Time Temp Pulse Resp B/P B/P Pulse O2 O2 Flow FiO2 Mean Ox Delivery Rate 03/31 0840 140/70 03/31 0840 140/70 03/31 0651 98.0 82 20 138/64 93 Room Air 03/31 0519 84 94 03/31 0233 82 94 03/31 0000 CPAP 03/30 2137 94 03/30 2103 76 126/78 03/30 1415 98.4 66 20 122/80 91 Intake & Output 03/31 1600 03/31 0800 03/31 0000 Intake Total 0 800 Output Total 125 480 Balance -125 320 Intake, IV 0 Intake, Oral 0 800 Number 0 0 Bowel Movements Output, Urine 125 480 Findings Pertinent Lab/Jesus Results: Laboratory Tests 03/31 0748 Chemistry Sodium (137 - 145 mmol/L) 141 Potassium (3.5 - 5.1 mmol/L) 4.4 Chloride (98 - 107 mmol/L) 97 L Carbon Dioxide (22 - 30 mmol/L) 31 H Anion Gap (5 - 16) 13 BUN (9 - 20 mg/dL) 21 H Creatinine (0.7 - 1.2 mg/dL) 1.3 H Estimated GFR (>60 ml/min) 55 L BUN/Creatinine Ratio (7 - 25 %) 16.2 Magnesium (1.6 - 2.3 mg/dL) 1.5 L Hematology CBC w Diff NO MAN DIFF REQ WBC (4.8 - 10.8 /CUMM) 15.4 H RBC (4.70 - 6.10 /CUMM) 3.30 L Hgb (14.0 - 18.0 G/DL) 9.8 L Hct (42 - 52 %) 29.4 L MCV (80.0 - 94.0 FL) 89.1 MCH (27.0 - 31.0 PG) 29.7 MCHC (33.0 - 37.0 G/DL) 33.4 RDW (11.5 - 14.5 %) 14.4 Plt Count (130 - 400 /CUMM) 323 MPV (7.4 - 10.4 FL) 8.5 Gran % (42.2 - 75.2 %) 89.5 H Lymphocytes % (20.5 - 51.1 %) 6.2 L Monocytes % (1.7 - 9.3 %) 3.6 Eosinophils % (0 - 5 %) 0.6 Basophils % (0.0 - 2.0 %) 0.1 Absolute Granulocytes (1.4 - 6.5 /CUMM) 13.8 H Absolute Lymphocytes (1.2 - 3.4 /CUMM) 1.0 L Absolute Monocytes (0.10 - 0.60 /CUMM) 0.6 Absolute Eosinophils (0.0 - 0.7 /CUMM) 0.1 Absolute Basophils (0.0 - 0.2 /CUMM) 0
[2017-03-31 16:00] VITALS: BP 130/72
[2017-03-31 21:29] VITALS: BP 128/66
[2017-04-01 07:01] VITALS: BP 102/98
[2017-04-01 09:23] LABS: ABSOLUTE BASOPHIL COUNT 0 /CUMM (0.0-0.2); ABSOLUTE EOSINOPHIL COUNT 0.2 /CUMM (0.0-0.7); ABSOLUTE GRANULOCYTE CT 10.4 /CUMM (1.4-6.5); ABSOLUTE MONOCYTE COUNT 0.6 /CUMM (0.10-0.60); BASOPHIL % 0.3 % (0.0-2.0); EOSINOPHIL % 1.4 % (0-5); GRANULOCYTE % 85.1 % (42.2-75.2); HEMATOCRIT 26.7 % (42-52); MEAN CORPUSCULAR HGB 29.9 PG (27.0-31.0); MEAN CORPUSCULAR HGB CONC 33.8 G/DL (33.0-37.0); MEAN CORPUSCULAR VOLUME 88.6 FL (80.0-94.0); MEAN PLATELET VOLUME 8.4 FL (7.4-10.4); PLATELET COUNT 334 /CUMM (130-400); RBC DISTRIBUTION WIDTH 14.1 % (11.5-14.5); RED BLOOD CELL CT 3.02 /CUMM (4.70-6.10); WHITE BLOOD CELL COUNT 12.3 /CUMM (4.8-10.8)
--- NOTE | 2017-04-01 10:08 | PN- General Surgery ---
Surgical Brief Attending Note Brief Attending Note: doing well. tolerating diet. drain removed. awaiting wbc. d/c on keflex 7 days if wbc improved.
[2017-04-01] MEDS ORDERED: KEFLEX750 M1 PO (10:23)
[2017-04-01 10:30] VITALS: BP 102/98
[2017-04-01] MEDS ORDERED: MAGNESIUM OXID400 M1 PO (13:29)
--- NOTE | 2017-04-01 13:46 | PN- Diabetes ---
Assessment/Plan Diabetes Assessment: 71 y/o male with hx of diabetes2, obstructive sleep apnea with CPAP at night, BPH, hyperlipidemia, and chronic back pain status post 3 cervical procedures and 1 lumbar procedure, DVT and PE postoperatively following spine surgery in 2011, s/p IVC filter in place, status post TIA in 2015, was admitted for gangrenous cholecystitis. He underwent cholecystectomy on 03/28/2017. He was on D5 1/2 NS at 125 ml /hour which was discontinued. He is on consistent carbohydrates 2 diet . He was put on Levemir 12 units daily, Novolog coverage before meals and Novolog coverage at bedtime. His FSGs were 155, 205, 244, 154 and 201. He feels better. Plan: increase Levemir to 15 units daily; continue the current Novolog regimen for now; monitor FSGs; replete Mg. If he is medically stable for discharge, the discharge plan for DM will be the same DM regimen prior to admission. No insulin---Glipizide ER 2.5 mg daily, metformin 850 mg twice a day and pioglitazone 15 mg daily. f/u in office with Dr. Bangura in office after discharge. Plan: detail see the above. Subjective Subjective: He feels better. Objective Last 24 Hrs of Vital Signs/I&O Vital Signs Date Time Temp Pulse Resp B/P B/P Pulse O2 O2 Flow FiO2 Mean Ox Delivery Rate 04/01 1030 54 102/98 04/01 0932 80 102/98 04/01 0701 97.8 80 18 102/98 95 04/01 0021 78 96 03/31 2134 100/66 03/31 2129 97.9 88 18 128/66 91 03/31 1600 96 Room Air 03/31 1600 98.3 63 20 130/72 97 Intake & Output 04/01 1600 04/01 0800 04/01 0000 Intake Total 400 300 Output Total 300 555 205 Balance 100 -255 -205 Intake, Oral 400 300 Output, 5 5 Drainage Output, Urine 300 550 200 Findings Pertinent Lab/Jesus Results: Laboratory Tests 04/01 0811 Chemistry Sodium (137 - 145 mmol/L) 136 L Potassium (3.5 - 5.1 mmol/L) 4.3 Chloride (98 - 107 mmol/L) 98 Carbon Dioxide (22 - 30 mmol/L) 26 Anion Gap (5 - 16) 12 BUN (9 - 20 mg/dL) 20 Creatinine (0.7 - 1.2 mg/dL) 1.1 Estimated GFR (>60 ml/min) > 60 BUN/Creatinine Ratio (7 - 25 %) 18.2 Magnesium (1.6 - 2.3 mg/dL) 1.5 L Hematology CBC w Diff NO MAN DIFF REQ WBC (4.8 - 10.8 /CUMM) 12.3 H RBC (4.70 - 6.10 /CUMM) 3.02 L Hgb (14.0 - 18.0 G/DL) 9.0 L Hct (42 - 52 %) 26.7 L MCV (80.0 - 94.0 FL) 88.6 MCH (27.0 - 31.0 PG) 29.9 MCHC (33.0 - 37.0 G/DL) 33.8 RDW (11.5 - 14.5 %) 14.1 Plt Count (130 - 400 /CUMM) 334 MPV (7.4 - 10.4 FL) 8.4 Gran % (42.2 - 75.2 %) 85.1 H Lymphocytes % (20.5 - 51.1 %) 8.0 L Monocytes % (1.7 - 9.3 %) 5.2 Eosinophils % (0 - 5 %) 1.4 Basophils % (0.0 - 2.0 %) 0.3 Absolute Granulocytes (1.4 - 6.5 /CUMM) 10.4 H Absolute Lymphocytes (1.2 - 3.4 /CUMM) 1.0 L Absolute Monocytes (0.10 - 0.60 /CUMM) 0.6 Absolute Eosinophils (0.0 - 0.7 /CUMM) 0.2 Absolute Basophils (0.0 - 0.2 /CUMM) 0
--- NOTE | 2017-04-01 16:50 | PN- Medicine Consult ---
Assessment/PlanMedical Consult Assessment/Plan Assessment: 71 y/o M with pmh sig for VINEET on CPAP, TIA, T2DM, CKD, cervical myelopathy s/p laminectomy, previous lumbar surgery with prophylactic IVC filter placement due to high risk for DVT/PE, is admitted to Surgical service for acute gangrenous cholecystitis, S/P Laparoscopic cholecystectomy, Drainage of subhepatic abscess POD #4 today. Plan: Operating room culture growing Klebsiella. Antiemetics have been switched to ceftriaxone per surgery. Drain removed, discharged home on oral antibiotics to complete 7 day course. Leukocytosis has resolving. Blood pressure remained stable. Heart rate is better. Patient creatinine is back to baseline. Patient discharged today. Subjective Subjective: Patient doing well denies any specific complaints. Review of Systems Constitutional: Reports: see HPI. Objective Last 24 Hrs of Vital Signs/I&O Vital Signs Date Time Temp Pulse Resp B/P B/P Pulse O2 O2 Flow FiO2 Mean Ox Delivery Rate 04/01 1030 54 102/98 04/01 0932 80 102/98 04/01 0701 97.8 80 18 102/98 95 04/01 0021 78 96 03/31 2134 100/66 03/31 2129 97.9 88 18 128/66 91 Intake & Output 04/01 1600 04/01 0800 04/01 0000 Intake Total 1000 300 Output Total 300 555 205 Balance 700 -255 -205 Intake, Oral 1000 300 Output, 0 5 5 Drainage Output, Urine 300 550 200 Physical Exam Other Physical Findings: General Appearance: alert, comfortable, obese Head: atraumatic Eyes: Bilateral: PERRL, EOMI. Neck: normal inspection Respiratory: normal breath sounds, chest non-tender, lungs clear Cardiovascular: regular rate/rhythm, normal peripheral pulses Gastrointestinal: normal bowel sounds, soft, right upper quadrant tenderness, REKHA drain in place Extremities: normal inspection, no edema Current Medications: Current Medications Sig/Andrea Start time Last Medication Dose Route Stop Time Status Admin Ceftriaxone Sodium 1,000 MG Q24H 03/30 1400 DCD 03/31 IV 1303 Docusate Sodium 100 MG BID 03/30 2200 DCD 04/01 PO 0932 Famotidine 20 MG BID 03/30 1000 DCD 04/01 PO 0932 Finasteride 5 MG DAILY 03/28 1000 DCD 04/01 PO 0932 Heparin Sodium 5,000 UNIT Q8 03/28 0600 DCD 04/01 (Porcine) SC 0503 Insulin Aspart 0 AC & AT BEDTIME 03/29 1200 DCD 04/01 SC 0931 Insulin Detemir 15 UNITS DAILY 04/01 1000 DCD 04/01 SC 0932 Insulin Detemir 12 UNITS DAILY 03/30 1000 DC 03/31 SC 0841 Losartan Potassium 50 MG DAILY 04/01 1000 DCD 04/01 PO 1030 Losartan Potassium 50 MG DAILY 03/29 1032 DC 03/31 PO 0840 Morphine Sulfate 2 MG Q2P PRN 03/27 2300 DCD IV Ondansetron HCl 4 MG Q6-PRN PRN 03/27 2300 DCD 03/30 IV 0840 Oxycodone HCl 5 MG Q4-6 PRN PRN 03/29 0815 DCD PO Oxycodone HCl 10 MG Q4-6 PRN PRN 03/29 0815 DCD PO Tamsulosin HCl 0.4 MG BID 03/28 1000 DCD 04/01 PO 0932 Results Last 24 Hrs Lab/Jesus Results: Laboratory Tests 04/01/17 0811: Anion Gap 12, Estimated GFR > 60, BUN/Creatinine Ratio 18.2, Magnesium 1.5 L, CBC w Diff NO MAN DIFF REQ, RBC 3.02 L, MCV 88.6, MCH 29.9, MCHC 33.8, RDW 14.1 , MPV 8.4, Gran % 85.1 H, Lymphocytes % 8.0 L, Monocytes % 5.2, Eosinophils % 1.4, Basophils % 0.3, Absolute Granulocytes 10.4 H, Absolute Lymphocytes 1.0 L , Absolute Monocytes 0.6, Absolute Eosinophils 0.2, Absolute Basophils 0 Attending MD Review Statement Attending Sign Off Attending Cosign Statement: I have: examined this patient, reviewed aval EMR data, discussed mgmt plan w/ leonarda.
== END 2017-04-01 14:45 | DRG 417 ==
LOC: ERH 12:56 → 2NA 21:59 → ERHI 21:59 → 2NA 23:33 → ENPENDDIS 04-01 10:21 → ENTRNSPT 04-01 14:20 → 2NA 04-01 14:45 → EDTRNSPTSTS 04-01 14:46 → EDTRNSPT 04-01 14:46 → CMPTRNSPT 04-01 15:01
PROVIDERS: Nurse Practitioner; Physician Assistant; Physician Assistant Surgical
PROC: 0F944ZX Drainage of Gallbladder, Percutaneous Endoscopic Approach, Diagnostic (ICD-10-PCS; principal; 2017-03-28)
PROC: 0FT44ZZ Resection of Gallbladder, Percutaneous Endoscopic Approach (ICD-10-PCS; principal; 2017-03-28)
PROC: 0DNU4ZZ Release Omentum, Percutaneous Endoscopic Approach (ICD-10-PCS; principal; 2017-03-28)
DX: K80.00 Calculus of gallbladder with acute cholecystitis without obstruction (principal); K82.2 Perforation of gallbladder; K65.1 Peritoneal abscess; E87.2 Acidosis; M50.00 Cervical disc disorder with myelopathy, unspecified cervical region; E11.22 Type 2 diabetes mellitus with diabetic chronic kidney disease; E11.65 Type 2 diabetes mellitus with hyperglycemia; E66.01 Morbid (severe) obesity due to excess calories; I12.9 Hypertensive chronic kidney disease with stage 1 through stage 4 chronic kidney disease, or unspecified chronic kidney disease; N18.2 Chronic kidney disease, stage 2 (mild); Z68.35 Body mass index [BMI] 35.0-35.9, adult; R74.0 Nonspecific elevation of levels of transaminase and lactic acid dehydrogenase [LDH]; Z86.73 Personal history of transient ischemic attack (TIA), and cerebral infarction without residual deficits; G47.33 Obstructive sleep apnea (adult) (pediatric); F51.9 Sleep disorder not due to a substance or known physiological condition, unspecified; N40.0 Benign prostatic hyperplasia without lower urinary tract symptoms; E78.5 Hyperlipidemia, unspecified; M54.9 Dorsalgia, unspecified; Z95.1 Presence of aortocoronary bypass graft; Z86.718 Personal history of other venous thrombosis and embolism; Z79.84 Long term (current) use of oral hypoglycemic drugs; Z79.82 Long term (current) use of aspirin; Z79.891 Long term (current) use of opiate analgesic; M48.00 Spinal stenosis, site unspecified; Z87.891 Personal history of nicotine dependence; D63.8 Anemia in other chronic diseases classified elsewhere; R00.0 Tachycardia, unspecified; D72.829 Elevated white blood cell count, unspecified; E86.0 Dehydration; E83.42 Hypomagnesemia; K66.0 Peritoneal adhesions (postprocedural) (postinfection)
CPT/HCPCS: 2NASP; 36415; 36592; 71045; 71046; 81001; 82436; 87040; 87086; 87804; 87804-59; 88304; 93005; 93010; 96361; 96374; 96375; 97116-GO; 97161-GP; 97530-GO; C9399; J0131; J0696; J1644; J2405; J3490